=== PATIENT | male | born 1970 | race Two or more races ===

== ENCOUNTER 2020-09-07 07:12 | Observation (INO) | payer OTHER, SELFPAY ==
[2020-09-07] VITALS (14 sets, daily range): BP systolic 119–201; BP diastolic 55–112; PULSE 65–92; RESP 16–22; TEMP 36.9; O2SAT 95–99; BMI 42.9
--- NOTE | 2020-09-07 07:26 | XR_ITS ---
EXAMINATION: XR CHEST CLINICAL INFORMATION: Chest pain COMPARISON: Previous chest x-ray May 2020 TECHNIQUE: Frontal view of the chest was obtained. FINDINGS: The cardiac silhouette does not appear enlarged. The lung volumes are low. There are prominent central bronchovascular markings, question related to low lung volumes. The lungs are otherwise clear. There is no pleural effusion or pneumothorax. There are mild degenerative changes of the spine. XR/XR chest 1V IMPRESSION: Crowded central bronchovascular markings, question related to low lung volumes. Otherwise unremarkable exam.
--- NOTE | 2020-09-07 07:27 | ED_ITS ---
HPI - Chest Pain General Chief Complaint: Chest Pain Stated Complaint: CHEST PAIN Time Seen by Provider: 09/07/20 07:27 Source: patient Mode of arrival: ambulatory Limitations: no limitations History of Present Illness HPI narrative: takes 3 BP medications amlodipine, lisinopril, HTCZ - ran out of amlodipine and HCTZ recently complaint: chest pain Pertinent past history: other (HTN) Onset (ago): hour(s) (4.5 hours ago woke him from sleep at 3am) Timing of current episode: constant Prior episodes: No Onset: during rest Pain location: left chest Pain radiation: left arm and neck Severity: moderate Quality: heaviness Relieving factors: nothing Exacerbating factors: nothing Associated symptoms: nausea, diaphoresis and dyspnea Treatment prior to arrival: aspirin (took 325mg [employer]PER[employer]) Risk Factors Coronary artery disease risk factors: smoking history and hypertension Related Data Home Medications Medication Instructions Recorded Confirmed amlodipine 5 mg PO DAILY 09/07/20 09/07/20 hydrochlorothiazide 25 mg PO DAILY 09/07/20 09/07/20 lisinopril 20 mg PO DAILY 09/07/20 09/07/20 Allergies Allergy/AdvReac Type Severity Reaction Status Date / Time acetaminophen [From TYLENOL] Allergy Unknown AGITATION Verified 09/07/20 07:29 codeine [CODEINE] Allergy Unknown CLAUSTROPHO Verified 09/07/20 07:29 CAMILO Review of Systems Review of Systems: Constitutional : No Weight loss, No Fever, No Chills ENT/Mouth : No sore throat, No Rhinorrhea Eyes: No Eye Pain, No Swelling Cardiovascular : pos Chest Pain, pos SOB, no Dyspnea on Exertion, No Orthopnea, No Edema, No Palpitations Respiratory : No Cough, No Sputum Gastrointestinal : pos Nausea, No Vomiting, No Diarrhea, No abdominal Pain, No Hematochezia, No Melena Genitourinary : No Dysuria, No Urinary Frequency Musculoskeletal : No joint pain, No Myalgias, No Joint Swelling Skin : No Skin Lesions, No rash Neuro : No Weakness, No Numbness, No Dizziness, No Headache Psych : No Anxiety/Panic, No Depression Heme/Lymph: No Bruising, No Lymphadenopathy Endocrine : No Polyuria, No Polydipsia All other systems reviewed and are negative PMFSH Past Medical History Attestation statement: The following information was validated with the patient. Medical History High cholesterol HTN (hypertension) Social History Social History (Updated 09/07/20 @ 07:30 by Yumiko Brown DO) Alcohol intake: current Alcohol intake frequency: a few times a week Alcohol type: beer Smoking Status: Current every day smoker Use of substances other than those prescribed or required for medical reasons: No Advance Directives: No Advance Directives Information Provided: Yes Physical Exam Vital Signs: Vital Signs: Last Vital Signs Temp 98.4 F 09/07/20 07:25 Pulse 65 09/07/20 08:13 Resp 18 09/07/20 08:13 BP 140/88 H 09/07/20 08:13 Pulse Ox 98 09/07/20 08:13 Body Mass Index 42.9 Appearance: Alert. Oriented X3. No acute distress. Eyes: Pupils equal, round and reactive to light. ENT: Pharynx normal. Neck: Normal inspection. Neck supple. CVS: Normal heart rate and rhythm. Pulses normal. Respiratory: No respiratory distress. Breath sounds normal. Abdomen: Soft and non-tender. Skin: Skin warm and sweaty. Normal skin color. Normal skin turgor. Extremities: No lower extremity edema. No calf ttp Neuro: Oriented X 3. No motor deficit. No sensory deficit. Course Course Course Narrative: BP 148/82 patient reports significant improvement after nitro - states he feels better, refusing any further medications for pain at this time MDM - Chest Pain MDM Narrative Medical decision making narrative: 50 yo male with HTN and smoking off of 2 of his BP medications for 1 week here with BP > 200 and chest pain likely HTN urgency with new EKG changes - at this time will need labs, CXR, troponin, nitro paste or IV BP medications if no response as well as repeat EKG, suspect HTN is cause of EKG changes and CP, planned admit Lab Data Result diagrams: 09/07/20 07:42 09/07/20 07:42 Labs: Lab Results 09/07/20 09/07/20 09/07/20 Range/Units 07:42 07:42 07:42 WBC 6.9 (4.8-10.8) X10*3/uL RBC 4.51 L (4.60-5.80) X10*6/uL Hgb 14.5 (14.0-18.0) g/dl Hct 41.0 L (42-52) % MCV 90.9 (80-98) fL MCH 32.2 (27.0-33.0) pg MCHC 35.4 (31.0-36.0) g/dl RDW 12.4 (11.0-16.0) % Plt Count 217 (160-400) X10*3/uL MPV 10.3 (9.4-12.4) fL Immature Gran % (Auto) 0.9 H (0.0-0.4) % Neut % (Auto) 63.7 (45-73) % Lymph % (Auto) 25.5 (20-40) % [place] % (Auto) 7.7 (2-11) % Eos % (Auto) 1.9 (0-4) % Baso % (Auto) 0.3 (0-2) % Lymph # (Auto) 1.8 (1.2-4.9) X10*3/uL [place] # (Auto) 0.5 (0.1-1.2) X10*3/uL Eos # (Auto) 0.1 (0.0-0.4) X10*3/uL Baso # (Auto) 0.0 (0.0-0.2) X10*3/uL Abs Immat Gran (auto) 0.06 H (0.00-0.03) X10*3/uL Absolute Neuts (auto) 4.4 (2.0-8.3) X10*3/uL Absolute Nucleated RBC 0.000 (0.0-0.012) X10*3/uL Nucleated RBC % (auto) 0.0 (0.0-0.2) /100WBC PT 10.8 (10.8-13.0) SEC INR 0.9 (0.9-1.1) APTT 39.8 H (24.1-38.0) SEC Sodium 139 (135-145) mmol/L Potassium 4.2 (3.3-5.1) mmol/l Chloride 105 (96-108) mmol/L Carbon Dioxide 26 (22-29) mmol/L Anion Gap 12 (12-20) BUN 15 (9-16) mg/dL Creatinine 0.82 (0.5-1.4) mg/dL Estim Creat Clear Calc 123.3 Estimated GFR > 60 Random Glucose 103 (60-115) mg/dL Calcium 8.7 (8.4-10.2) mg/dL Magnesium 2.1 (1.6-2.6) mg/dL Total Bilirubin 0.4 (0.0-1.0) mg/dL Direct Bilirubin < 0.2 (0.0-0.5) mg/dL AST 19 (5-37) U/L ALT 31 (0-40) U/L Alkaline Phosphatase 67 (39-117) U/L Troponin I High Sens (<3.5-35.0) ng/L B-Natriuretic Peptide (<100) pg/mL Total Protein 6.7 (6.5-8.0) g/dL Albumin 4.3 (3.5-5.0) g/dL Lipase 18 (8-78) U/L COVID-19 (ELYSE) (Negative) COVID-19 Clin Com 09/07/20 09/07/20 Range/Units 07:42 07:42 WBC (4.8-10.8) X10*3/uL RBC (4.60-5.80) X10*6/uL Hgb (14.0-18.0) g/dl Hct (42-52) % MCV (80-98) fL MCH (27.0-33.0) pg MCHC (31.0-36.0) g/dl RDW (11.0-16.0) % Plt Count (160-400) X10*3/uL MPV (9.4-12.4) fL Immature Gran % (Auto) (0.0-0.4) % Neut % (Auto) (45-73) % Lymph % (Auto) (20-40) % [place] % (Auto) (2-11) % Eos % (Auto) (0-4) % Baso % (Auto) (0-2) % Lymph # (Auto) (1.2-4.9) X10*3/uL [place] # (Auto) (0.1-1.2) X10*3/uL Eos # (Auto) (0.0-0.4) X10*3/uL Baso # (Auto) (0.0-0.2) X10*3/uL Abs Immat Gran (auto) (0.00-0.03) X10*3/uL Absolute Neuts (auto) (2.0-8.3) X10*3/uL Absolute Nucleated RBC (0.0-0.012) X10*3/uL Nucleated RBC % (auto) (0.0-0.2) /100WBC PT (10.8-13.0) SEC INR (0.9-1.1) APTT (24.1-38.0) SEC Sodium (135-145) mmol/L Potassium (3.3-5.1) mmol/l Chloride (96-108) mmol/L Carbon Dioxide (22-29) mmol/L Anion Gap (12-20) BUN (9-16) mg/dL Creatinine (0.5-1.4) mg/dL Estim Creat Clear Calc Estimated GFR Random Glucose (60-115) mg/dL Calcium (8.4-10.2) mg/dL Magnesium (1.6-2.6) mg/dL Total Bilirubin (0.0-1.0) mg/dL Direct Bilirubin (0.0-0.5) mg/dL AST (5-37) U/L ALT (0-40) U/L Alkaline Phosphatase (39-117) U/L Troponin I High Sens 15.2 (<3.5-35.0) ng/L B-Natriuretic Peptide 17 (<100) pg/mL Total Protein (6.5-8.0) g/dL Albumin (3.5-5.0) g/dL Lipase (8-78) U/L COVID-19 (ELYSE) Negative (Negative) COVID-19 Clin Com See Note ECG Data ECG #1: Attestation: I personally reviewed and interpreted this ECG as follows: ECG interpretation date: 09/07/20 ECG interpretation time: 07:32 Interpretation: Rate: 75 Rhythm: NSR Kane: normal Normal P waves. Normal MANPREET. Normal QRS complex. ST T wave : inverted 1 and aVL (old) inverted t waves V4-V6 (new since May 2020) qTC: normal prior studies: changed from prior The study has been interpreted contemporaneously by me. . Rate: 75 Rhythm: NSR Kane: normal Normal P waves. Normal MANPREET. Normal QRS complex. ST T wave : inverted t waves I, aVL, V3-V6 qTC: normal prior studies: changed from old EKG but no new changes post HTN control The study has been interpreted contemporaneously by me. . Discharge Plan Discharge Clinical Impression: Chest pain, Hypertensive urgency, Acute electrocardiogram changes Patient Disposition: Admitted As Inpatient Prescriptions: No Action lisinopril 20 mg tablet 20 mg PO DAILY RF: 0 amlodipine 5 mg tablet 5 mg PO DAILY RF: 0 hydrochlorothiazide 25 mg tablet 25 mg PO DAILY RF: 0
[2020-09-07] MEDS: Nitroglycerin 2 % Oint 1 GM Packet 1 INCH TRANSDERMA (07:44)
[2020-09-07] MEDS: ondansetron HCL 4 MG/2 ML VIAL IVPUSH (07:45)
[2020-09-07 07:54] LABS: MANUAL DIFF FLAG NO
[2020-09-07 08:03] LABS: INTERNATIONAL NORM RATIO 0.9 (0.9-1.1); Prothrombin Time 10.8 SEC (10.8-13.0)
[2020-09-07 08:06] LABS: Basophils Percent Auto 0.3 % (0-2); Eosinophils Absolute Auto 0.1 X10*3/uL (0.0-0.4); Eosinophils Percent Auto 1.9 % (0-4); Hemoglobin 14.5 g/dl (14.0-18.0); Imm Gran Abs Auto 0.06 X10*3/uL (0.00-0.03); Imm Gran Pct Auto 0.9 % (0.0-0.4); Lymphocytes Absolute Auto 1.8 X10*3/uL (1.2-4.9); Lymphocytes Percent Auto 25.5 % (20-40); Mean Corpuscular HGB Conc 35.4 g/dl (31.0-36.0); Mean Corpuscular Hemoglobin 32.2 pg (27.0-33.0); Mean Corpuscular Volume 90.9 fL (80-98); Mean Platelet Volume 10.3 fL (9.4-12.4); Monocytes Absolute Auto 0.5 X10*3/uL (0.1-1.2); Monocytes Percent Auto 7.7 % (2-11); Neutrophils Absolute Auto 4.4 X10*3/uL (2.0-8.3); Neutrophils Percent Auto 63.7 % (45-73); Partial Thromboplastin Time 39.8 SEC (24.1-38.0); Platelet Count 217 X10*3/uL (160-400); Red Blood Count 4.51 X10*6/uL (4.60-5.80); Red Cell Distribution Width 12.4 % (11.0-16.0); White Blood Count 6.9 X10*3/uL (4.8-10.8)
--- NOTE | 2020-09-07 08:06 | ECG_ITS ---
Test Reason : CP Blood Pressure : / mmHG Vent. Rate : 075 BPM Atrial Rate : 075 BPM P-R Int : 158 ms QRS Dur : 106 ms QT Int : 388 ms P-R-T Axes : 054 056 140 degrees QTc Int : 433 ms Normal sinus rhythm ST & T wave abnormality, consider lateral ischemia Abnormal ECG When compared with ECG of 08-MAY-2020 17:58, T wave inversion more evident in Anterolateral leads Referred By: Yumiko Brown Electronically Signed By:DIETER PAZ MD
--- NOTE | 2020-09-07 08:07 | ECG_ITS ---
Test Reason : CP Blood Pressure : / mmHG Vent. Rate : 075 BPM Atrial Rate : 075 BPM P-R Int : 160 ms QRS Dur : 096 ms QT Int : 412 ms P-R-T Axes : 056 065 151 degrees QTc Int : 460 ms Normal sinus rhythm Possible Left atrial enlargement ST & T wave abnormality, consider anterolateral ischemia Prolonged QT Abnormal ECG When compared with ECG of 07-SEP-2020 07:19, No significant change was found Referred By: Yumiko Brown Electronically Signed By:DIETER PAZ MD
[2020-09-07] MEDS: amLODIPine Besylate 10 MG TABLET PO (08:11)
[2020-09-07 08:24] LABS: Alanine Aminotransferase 31 U/L (0-40); Albumin Level 4.3 g/dL (3.5-5.0); Alkaline Phosphatase 67 U/L (39-117); Anion Gap 12 (12-20); Aspartate Amino Transferase 19 U/L (5-37); Bilirubin Direct < 0.2 mg/dL (0.0-0.5); Bilirubin Total 0.4 mg/dL (0.0-1.0); Blood Urea Nitrogen 15 mg/dL (9-16); Calcium 8.7 mg/dL (8.4-10.2); Carbon Dioxide 26 mmol/L (22-29); Chloride 105 mmol/L (96-108); Creatinine Clr Calc Pharmacy 123.3; Estimated Glomerular Filt Rate > 60; Glucose Random 103 mg/dL (60-115); Lipase 18 U/L (8-78); Magnesium 2.1 mg/dL (1.6-2.6); Potassium 4.2 mmol/l (3.3-5.1); Sodium 139 mmol/L (135-145); Total Protein 6.7 g/dL (6.5-8.0)
[2020-09-07 08:27] LABS: B Type Natriuretic Peptide 17 pg/mL (<100); Troponin-I High Sensitivity 15.2 ng/L (<3.5-35.0)
[2020-09-07 08:28] LABS: COVID-19 Test Negative (Negative)
--- NOTE | 2020-09-07 08:29 | PC.NURSE ---
Pt feeling better since arrival but reports b/l hand tightness. Pt falls asleep easily now and appears more comfortable. nsr on monitor. Breathing even/unlabored. BP has trended down as charted. Plan for admission.
--- NOTE | 2020-09-07 10:33 | P.HPHOSP_ITS ---
History of Present Illness Date of Service: 09/07/20 <Deandra Jimenez NP - Last Filed: 09/07/20 10:48> Chief Complaint: Chest pain <Deandra Jimenez NP - Last Filed: 09/07/20 10:48> 50 year old man presenting with chest pain that woke him up from sleep this morning. He reported that he had pressure that started in his left arm radiating to his neck down to the left side of his chest. He also had some as sociated shortness of breath. He took a baby aspirin and his blood pressure medications. He continued to have the discomfort for some time and decided to come to the ED to be evaluated. He was seen at [facility] in February 2020 for the same symptoms. He was referred for outpatient stress test. Today, his EKG did show some changes including new inversions to lateral leads. Troponin was in normal range and his pain improved upon arrival to the ED. All his other labs were within acceptable limits. vital signs stable. He was given nitroglycerin and a dose of amlodipine. He will be placed on observation for further management of chest pain with EKG changes. <Deandra Jimenez NP - Last Filed: 09/07/20 10:48> Review of Systems Review of Systems: Denies any recent fever chills or decrease in appetite respiratory See HPI cardiovascular See HPI gastrointestinal denies any dysphagia abdominal pain nausea vomiting or diarrhea genitourinary denies any dysuria frequency or hematuria musculoskeletal denies any joint pain or swelling neuropsych denies any weakness or seizures all other systems reviewed are negative <Deandra Jimenez NP - Last Filed: 09/07/20 10:48> [facility] Medical History: Medical History High cholesterol HTN (hypertension) <BENNETT Holbrook Last Filed: 09/07/20 10:48> Functional capacity: independent ambulation <Deandra Jimenez NP - Last Filed: 09/07/20 10:48> Family History: Family History Mother Heart valve disease Cancer Brother Diabetes mellitus <BENNETT Holbrook Last Filed: 09/07/20 10:48> Social History: Social History Household Members: Spouse Housing: Other Alcohol intake: current Alcohol intake frequency: a few times a week Alcohol type: beer Smoking Status: Current every day smoker Tobacco Type: Cigarette Packs Per Day: 1.5 Cigarettes Per Day: 30.0 Years Smoked: 30 Second Hand Smoke Exposure: No service: No Current occupational status: employed <Deandra Jimenez NP - Last Filed: 09/07/20 10:48> Meds Allergies/Adverse reactions: Allergies Allergy/AdvReac Type Severity Reaction Status Date / Time acetaminophen [From TYLENOL] Allergy Unknown AGITATION Verified 09/07/20 07:29 codeine [CODEINE] Allergy Unknown CLAUSTROPHO Verified 09/07/20 07:29 CAMILO <Deandra Jimenez NP - Last Filed: 09/07/20 10:48> Physical Exam Vital Signs and Narrative: Vital Signs: Last Vital Signs Temp 98.4 F 09/07/20 07:25 Pulse 92 09/07/20 09:19 Resp 16 09/07/20 09:19 BP 120/70 09/07/20 09:19 Pulse Ox 98 09/07/20 09:19 Body Mass Index 42.9 <Deandra Jimenez NP - Last Filed: 09/07/20 10:48> Appearing in no acute distress head is normocephalic atraumatic eyes pupils are PERRLA sclera is anicteric mouth throat mucous membranes are intact and moist neck is supple no lymphadenopathy, no JVD noted lung sounds are clear to auscultation heart regular rate rhythm, clear S1, S2 positive bowel sounds, abdomen is soft, nontender neuro patient is alert x3, no focal deficits <Deandra Jimenez NP - Last Filed: 09/07/20 10:48> Results Labs CBC and Chem 7: : 09/09/20 05:50 09/09/20 05:50 <Deandra Jimenez NP - Last Filed: 09/07/20 10:48> Labs: Laboratory Results - last 24 hr 09/07/20 09/07/20 09/07/20 07:42 07:42 07:42 MCV 90.9 MCH 32.2 MCHC 35.4 RDW 12.4 Plt Count 217 MPV 10.3 Immature Gran % (Auto) 0.9 H Neut % (Auto) 63.7 Lymph % (Auto) 25.5 [place] % (Auto) 7.7 Eos % (Auto) 1.9 Baso % (Auto) 0.3 Lymph # (Auto) 1.8 [place] # (Auto) 0.5 Eos # (Auto) 0.1 Baso # (Auto) 0.0 Abs Immat Gran (auto) 0.06 H Absolute Neuts (auto) 4.4 Absolute Nucleated RBC 0.000 Nucleated RBC % (auto) 0.0 PT 10.8 INR 0.9 APTT 39.8 H Anion Gap 12 Estim Creat Clear Calc 123.3 Estimated GFR > 60 Random Glucose 103 Calcium 8.7 Magnesium 2.1 Total Bilirubin 0.4 Direct Bilirubin < 0.2 AST 19 ALT 31 Alkaline Phosphatase 67 Troponin I High Sens B-Natriuretic Peptide Total Protein 6.7 Albumin 4.3 Lipase 18 COVID-19 (ELYSE) COVID-19 Clin Com 09/07/20 09/07/20 07:42 07:42 MCV MCH MCHC RDW Plt Count MPV Immature Gran % (Auto) Neut % (Auto) Lymph % (Auto) [place] % (Auto) Eos % (Auto) Baso % (Auto) Lymph # (Auto) [place] # (Auto) Eos # (Auto) Baso # (Auto) Abs Immat Gran (auto) Absolute Neuts (auto) Absolute Nucleated RBC Nucleated RBC % (auto) PT INR APTT Anion Gap Estim Creat Clear Calc Estimated GFR Random Glucose Calcium Magnesium Total Bilirubin Direct Bilirubin AST ALT Alkaline Phosphatase Troponin I High Sens 15.2 B-Natriuretic Peptide 17 Total Protein Albumin Lipase COVID-19 (ELYSE) Negative COVID-19 Clin Com See Note <Deandra Jimenez NP - Last Filed: 09/07/20 10:48> Imaging Radiologist's Impressions: Impressions Chest X-Ray 09/07/20 07:26 IMPRESSION: Crowded central bronchovascular markings, question related to low lung volumes. Otherwise unremarkable exam. <Deandra Jimenez NP - Last Filed: 09/07/20 10:48> Assessment and Plan (1) Chest pain: Qualifiers: Chest pain type: unspecified Qualified Code(s): R07.9 - Chest pain, unspecified <Deandra Jimenez NP - Last Filed: 09/07/20 10:48> Status: Resolved <Deandra Jimenez NP - Last Filed: 09/07/20 10:48> (2) Hypertensive urgency: Status: Resolved <Deandra Jimenez NP - Last Filed: 09/07/20 10:48> 50 yea alexy man placed on observation for chest pain Chest pain. Resolved. New EKG changes with inversions to leads I, AVL, V5, V6. Place on telemetry, cardio to follow. Hypertensive urgency. Resolved in the ED. Continue home medications. Smoker. Discussed smoking cessation, NRT. Obesity. BMI 43, likely contributing to worsening of other comorbidities. DVT prophylaxis with Lovenox. Discussed with Dr. Yancey. Full code. <Deandra Jimenez NP - Last Filed: 09/07/20 10:48>
--- NOTE | 2020-09-07 11:30 | PC.NURSE ---
introduced self to pt. denies any pain or discomfort, VS wnl. aware of plan for observation.
--- NOTE | 2020-09-07 13:35 | PC.NURSE ---
pt eating lunch, no issues
--- NOTE | 2020-09-07 16:11 | P.EN_ITS ---
Event Note Date of Service: 09/07/20 Event Note: I saw and examined the patient and participated in the nielsen portion of the E/M service. I agree with the history and exam as documented by RADAR SCIENTIST. Patient likely has atypical chest pain. Will admit for monitoring and work up. Otherwise, I agree with assessment and plan as outlined in the H and P.
[2020-09-07] MEDS: Aspirin 81 MG TAB.CHEW 324 MG PO (18:42)
--- NOTE | 2020-09-07 19:43 | PC.NURSE ---
PT RESTING IN STRETCHER REQUESTING FOOD AND COFFEE. PT EATING AND DRINKING AT THIS TIME. PT DENIES ANY CP OR DISCOMFORT AT THIS TIME. PT RESTING IN STRETCHER WATCHING TV ON PHONE. PT ALERT, AND IN NAD, RESP EASY, N/L. SKIN W/D. AWAITING BED ASSIGNMENT FOR ADMISSION.
[2020-09-07] MEDS: Enoxaparin Sodium 40 MG/0.4 ML SYRINGE SUBCUT (20:15)
--- NOTE | 2020-09-07 22:45 | PC.NURSE ---
PT REQUESTING COVID RESULTS AND REQUESTING RESULTS FOR BOSS UPON DISCHARGE. PT REMAINS ALERT AND CHEST PAIN FREE. WILL CONTINUE TO MONITOR PT.
[2020-09-08] VITALS (8 sets, daily range): BP systolic 142–174; BP diastolic 78–109; PULSE 18–92; RESP 18–20; TEMP 36.2–36.6; O2SAT 96–98; BMI 42.9
--- NOTE | 2020-09-08 03:17 | PC.NURSE ---
PT RESTING IN STRETCHER. PT MEDICATED PER EMAR. WILL CONTINUE TO MONITOR PT. AWAITING ROOM ASSIGNMENT.
--- NOTE | 2020-09-08 03:19 | PC.NURSE ---
PT UP TO RESTROOM AMBULATORY IN NAD. PT DENIES ANY COMPLAINTS AT THIS TIME. VS OBTAINED. PT REQUESTING COFFEE. PT REMAINS ALERT, RESPIRATIONS EASY, N/L. SKIN W/D. PT AWAITING ROOM ASSIGNMENT.
[2020-09-08] MEDS: Metoprolol Tartrate 5 MG/5 ML VIAL IVPUSH (04:15)
--- NOTE | 2020-09-08 07:15 | PC.NURSE ---
report given to ZE Roy
--- NOTE | 2020-09-08 07:53 | PC.NURSE ---
REPORT FROM YONY KUNZ. PT BEING ADMITTED WITH RESOLVED CP. NO PAIN AT SHIFT CHANGE. VITALS UPDATED. ATE BREAKFAST. AWAITING BED ASSIGNMENT
--- NOTE | 2020-09-08 09:52 | MHC.CM.PN ---
pt lives c his and kids in an apt. 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 he has a license but it has so it is not valid. he reports that he is independent in his care. he walked to the hospital last night. he said he [place] planning [place] as he lives close [place]. i did offer to help pt with a ride if he would accept. pt denies the need for vna. pt's family can help him c any needs he may have at dc. dc plan is home no svcs. cm to cont. to follow.
[2020-09-08] MEDS: amLODIPine Besylate 5 MG TABLET PO (10:00)
[2020-09-08] MEDS: hydroCHLOROthiazide 25 MG TABLET PO (10:00)
[2020-09-08] MEDS: lisinopriL 20 MG TABLET PO (10:00)
[2020-09-08] MEDS: 0.9 % Sodium Chloride Flush 3 ML SYRINGE IVFLUSH ×3 (10:02→20:56)
--- NOTE | 2020-09-08 10:21 | CA_ITS ---
Transthoracic Echocardiogram Patient (Last, First, Middle): River Snow, Gender: Male Date of : 1970 Age: 50 Procedure Date: 09/08/2020 Procedure Type: Transthoracic Echocardiogram Location: [facility] [place] Height: 162.56 cm Weight: 113.4 kg BSA: 2.15 m2 Heart Rate: bpm BP: 145 / 101 mmHg Airport Planner: SHE Referring MD: Randall Buck MD Cork Tipper: Randall Buck MD Symptoms: ACS, CP, HTN Study Quality: Good ECG Rhythm: Sinus Conclusions: - 1. Normal LV systolic function with severe left ventricular hypertrophy with impaired relaxation filling pattern 2. Mildly dilated left atrium 3. Normal cardiac valvular Doppler 4. Normal RV systolic pressure 5. No pericardial effusion Findings Left Ventricle Normal left ventricular size and systolic function. There is severely increased left ventricular wall thickness. The visually estimated ejection fraction is between 60-65%. Spectral Doppler is indicative of an impaired relaxation filling pattern. E/E prime ratio is between 8 and 15 consistent with indeterminate filling pressures. Right Ventricle Normal right ventricular cavity size and systolic function. Atria The left atrium is mildly dilated. There is no evidence of interatrial shunt. The right atrium is normal in size. Aortic Valve Normal aortic valve structure and function. There is no aortic valve stenosis. There is no aortic valve regurgitation. Mitral Valve Normal mitral valve structure and function. There is trace mitral valve regurgitation. There is no mitral valve stenosis. Pulmonic Valve The pulmonic valve was not well visualized. Tricuspid Valve Normal tricuspid valve structure. There is trace tricuspid valve regurgitation. The right ventricular systolic pressure is normal. The right ventricular systolic pressure is 15 mmHg. Normal right atrial pressure. There is no evidence of pulmonary hypertension. Great Vessels All visible segments of the aorta are normal in size. The pulmonary artery was not well visualized. Venous The inferior vena cava is normal in size and collapses greater than 50% with inspiration. Pericardium/Pleural There is no evidence of pericardial effusion. Prior Study Comparison No prior study available for comparison. Measurements 2D Linear Measurements IVSd: 1.70 0.6-0.9/0.6-1.0 cm LVIDd: 4.83 3.9-5.3/4.2-5.9 cm LVIDd Index: 2.25 2.4-3.2/2.2-3.1 cm/m2 LVIDs: 2.81 2.0-3.6 cm LVPWd: 1.65 0.7-1.1 cm Ao Root: 3.20 2.1-3.5 cm LA Diam: 4.10 2.7-3.8/3.0-4.0 cm LAIDs Index: 1.91 1.5-2.3 cm/m2 LV Mass: 452.05 67-162/88-224 g LV Mass Index: 210.26 43-95/49-115 g/m2 LVOT Diam: 2.40 3.0+(-)1.3 cm Mitral Valve MV Pk E: 0.56 MV PK A: 0.80 MV Decel Time: 204.00 E/A: 0.70 E'Lateral: 6.67 E'Medial: 6.77 E/E' Med: 8.20 E/E' Lat: 8.40 PHT: 60.00 MVA PHT: 3.67 Decel Dickinson: 2.73 Aortic Valve AoV Pk Ryan: 1.58 AoV Mn Ryan: 1.01 AoV VTI: 0.32 AoV Pk Grad: 10.00 Aov Mn Grad: 5.00 SHIRIN Cont.VTI: 3.47 LVOT LVOT Pk Ryan: 1.13 LVOT Mn Ryan: 0.76 LVOT VTI: 0.25 LVOT Pk Grad: 5.00 LVOT Mn Grad: 3.00 LVOT Diam: 2.40 LVOT Area: 4.52 Diastolic Function MV Pk E: 0.56 MV Pk A: 0.80 E/A: 0.70 E'Medial: 6.77 E/E' Med: 8.20 E' Laterial: 6.67 E/E' Lat: 8.40 Tricuspid Valve TR Pk Ryan: 1.76 TR Pk Grad: 12.00 RA Press: 3.00 RVSP: 15.00 Great Vessels Aorta Ao Root-2D: 3.20 2.0-3.7 cm Ao Asc: 3.10 2.1-3.4 cm Pulmonary Valve PV Pk Ryan: 1.13 Peak PV Grad: 5.00 Updated in Other Vendor System with Status of Final Randall Buck MD electronically signed on 09/08/2020 5:27:10 PM with status of Final
--- NOTE | 2020-09-08 10:22 | CA_ITS ---
Acquisition Time: 2020-09-09 10:33:56 Total Exercise Time: 00:09:04 Test Indications: CP Medications: SEE CHART Protocol: KLAUDIA Max HR: 137 BPM 80% of Pred: 170 BPM Max BP: 200/086 mmHG Max Work Load: 10.1 METS Nuclear stress test using Klaudia protocol. exercise on the treadmill for 9 min 4 sec, METS 10.10, however MHR up to 80 % and pt stopped because he had severe cramps in his L leg. Test switched to Lexiscan, he tolerated well, denies any anginal sx. EKG with no arrhythmias, non diagnostic for ischemia. Nuclear images to follow. Hypertensive response to exercise. Normotensive response to Lexiscan. Test reviewed with Dr. Buck. Referred By: Randall Buck Overread By: Keysha Bhatt
--- NOTE | 2020-09-08 11:01 | PM.CNCAR ---
History of Present Illness History of Present Illness Date of Service: 09/08/20 Requesting physician: [facility] Consult reason: chest pain Chief complaint: CHEST PAIN,ekg changes Narrative: Thank you for inviting us on consult are off self for symptoms of chest discomfort. He is a 50-year-old man with longstanding hypertension for about 3 years, appears to be uncontrolled, has run out of his medications for couple of weeks. He came to the hospital said yesterday morning around 03:00 started having retrosternal chest pressure. Initially the discomfort started as neck discomfort radiating into the arm and then into the chest. This felt like pressure in his chest. He also then took a shower and thought the symptoms would subside but did not subside he started to get dizzy and therefore decided to come to the emergency room. When he came to the emergency room. In the ER he received aspirin nitro paste. Subsequently he said his pressure in the chest started getting resolved. His initial EKG shows anterolateral T-wave inversions which are quite different than his EKG 3 months ago. He said he was here 3 months ago and then he was discharged home at that time. His troponin done yesterday morning was 15.2, elevated compared to 3 months ago which was in the 5 range at that time. He is currently chest pain free. He was admitted because he continues to have uncontrolled blood pressure. His EKG shows persistent significant T-wave inversions in the anterolateral leads and the high lateral leads which has suggestive ischemia. He has not had any recent exertional chest discomfort. However says he gets these kind of symptoms every 3-4 months. He has had prior stress test, none in the system which she said have been within normal limits. Never had cardiac catheterization. He denies any systemic symptoms of cough, fever, chills. No palpitations, lightheadedness, syncope currently. Review of Systems Constitutional: Constitutional: Denies anorexia, Denies body ache(s), Denies chills, Reports excessive sweating, Denies fever(s), Denies lethargy, Reports snoring and Reports stops breathing during sleep Eyes: Eyes: Reports no additional eye complaints ENT: Reports system reviewed and no additional complaints, except as documented Cardiovascular: Cardiovascular: Reports chest pain at rest, Reports lightheadedness, Denies Loss of Consciousness, Denies palpitations, Denies dyspnea on exertion, Denies orthopnea and Denies paroxysmal nocturnal dyspnea Respiratory: Respiratory: Denies cough, Denies excessive phlegm production, Denies dyspnea on exertion and Reports snoring Gastrointestinal: Gastrointestinal: Reports no additional gastrointestinal complaints Musculoskeletal: Musculoskeletal: Reports no additional musculoskeletal complaints Neurologic: Reports system reviewed and no additional complaints, except as documented Psychiatric: Psychiatric: Reports no additional psychiatric complaints Endocrine: Endocrine: Reports no additional endocrine complaints, Reports excessive sweating and Denies palpitations Hematologic/Lymphatic: Hematologic/Lymphatic: Reports no additional hematologic/lymphatic complaints Allergic/Immunologic: Allergic/Immunologic: Reports no additional allergic/immunologic complaints [facility] Past Medical History Medical History High cholesterol HTN (hypertension) Functional capacity: independent ambulation Family History Family History Mother Heart valve disease Cancer Brother Diabetes mellitus Social History Social History Household Members: Spouse Household Members Other:: fiance and kids Housing: Other Housing Other:: snf/apt Do you presently have visiting nurse or other home services: No Alcohol intake: current Alcohol intake frequency: a few times a week Alcohol type: beer Smoking Status: Current every day smoker Tobacco Type: Cigarette Packs Per Day: 1.5 Cigarettes Per Day: 30.0 Years Smoked: 30 Smoked in Last 30 Days: Yes Patient Interested in Nicotine Replacement: No Patient Given Instructions on How to Stop Smoking: Yes Date Education Initiated: 09/08/20 Second Hand Smoke Exposure: No Use of substances other than those prescribed or required for medical reasons: No Have you been hit, kicked, punched, or otherwise hurt by someone within the past year? If so, by whom?: No Do you feel safe in your current relationship?: Yes Is there a partner from a previous relationship who is making you feel unsafe now?: No Are you made to feel afraid or neglected: No Advance Directives: No Advance Directives Information Provided: Yes Do you have thoughts of harming others: None Do you have a plan to hurt others: No Plan Recently lost weight without trying: No service: No Current occupational status: employed Meds Allergies Allergy/AdvReac Type Severity Reaction Status Date / Time acetaminophen [From TYLENOL] Allergy Unknown AGITATION Verified 09/07/20 07:29 codeine [CODEINE] Allergy Unknown CLAUSTROPHO Verified 09/07/20 07:29 CAMILO Home Medications Medication Instructions Recorded Confirmed Type amlodipine 5 mg PO DAILY 09/07/20 09/07/20 History hydrochlorothiazide 25 mg PO DAILY 09/07/20 09/07/20 History lisinopril 20 mg PO DAILY 09/07/20 09/07/20 History Physical Exam Vital Signs: Vital Signs: Last Vital Signs Temp 97.9 F 09/08/20 08:00 Pulse 92 09/08/20 08:00 Resp 18 09/08/20 08:00 BP 154/93 H 09/08/20 08:00 Pulse Ox 98 09/08/20 08:00 Body Mass Index 42.9 Const: General: cooperative, no acute distress, alert and awake Nutritional Appearance: obese Orientation/consciousness: patient oriented x3 Limitations: no limitations HENMT: Head: Yes normal to inspection, Yes normocephalic and Yes atraumatic Eyes: General: appearance normal, both eyes and all related structures Neck: Neck: Yes trachea midline, Yes supple and Yes no JVD Chest: Chest palpation & inspection: normal inspection of the chest Resp: Effort & Inspection: normal respiratory effort Auscultation: clear to auscultation bilaterally Cardio: Jugular venous distension: no JVD Palpation: normal PMI Rate: regular rate Rhythm: regular rhythm Heart sounds: S1 normal heart sound present, S2 normal heart sound present and Other heart sounds present (S4) GI: Inspection: Yes obesity Auscultation: normal bowel sounds Skin: General skin exam: no rashes or lesions noted Neuro: General: patient oriented x3 and no focal motor deficits Extrem: General: Yes no clubbing, cyanosis or edema Psych: Appearance: grossly normal Affect: Anxious affect present Results Labs and Meds Result diagrams: 09/07/20 07:42 09/07/20 07:42 EKG Interpretation EKG Comments: EKG shows normal sinus rhythm with diffuse anterolateral T-wave inversions suggestive of ischemia Assessment and Plan (1) ACS (acute coronary syndrome): Status: Acute Patient's presentation is concerning for acute coronary syndrome. His 1st high sensitive troponin yesterday was within normal limits. No repeat have been performed. Advised to repeat another high sensitive troponin at this time. His EKG changes are significant compared to his last electrocardiogram 3 months ago. Likely that this could be secondary to hypertensive urgency but myocardial ischemia cannot be ruled out entirely. Obtain an echocardiogram, if this shows significant wall motion abnormalities will require cardiac catheterization. If this is negative will require inpatient myocardial perfusion imaging with resting perfusion study performed today and stress perfusion study tomorrow. Further treatment based on the finding of stress test. Meanwhile continue low-dose aspirin therapy. Start statin therapy. Continue amlodipine, lisinopril hydrochlorothiazide. Add labetalol 100 mg b.i.d. to his regimen as well for better control of his blood pressure. (2) Hypertensive urgency: Status: Acute As above. Importance of compliance with treatment for blood pressure was discussed. He also has untreated sleep apnea which needs to be addressed as outpatient. Advised to seek follow-up with primary care physician's after discharge. Continue amlodipine, lisinopril hydrochlorothiazide and added labetalol to his regimen. Thank you for allowing us to partake in his care. Will continue to follow with the patient
--- NOTE | 2020-09-08 13:00 | NM_ITS ---
Myocardial perfusion study Indication: Chest pain with hypertensive urgency with EKG changes to evaluate for myocardial ischemia Technique: The patient was brought in for a Lexiscan perfusion study on 09/09/2020. Patient performed low-level exercise and was injected 0.4 mg of Lexiscan intravenously. Within a minute of injection, 30 mCi of sestamibi was given intravenously. Images were obtained using the SPECT gamma camera interlaced with the gating device. Images were obtained in supine position. Resting perfusion study was performed on 09/08/2020. Patient was administered 30 mCi of sestamibi intravenously at rest. Images were then obtained in supine position. Images obtained with and without CT attenuation. Total DLP 102 mGy-cm. Images were processed with the software and compared side to side in short axis, horizontal long axis and vertical long axis views. Findings: The stress perfusion study showed non attenuated images show mildly reduced uptake in the basal inferior wall of the LV myocardium. Remainder of the LV myocardium is normally perfused. Attenuation corrected images show normal uptake of radiotracer in all segments of LV is suggestion of left ventricle hypertrophy. The gated study shows normal LV systolic function with visually estimated LVEF of greater than 55%. LV cavity is normal in size. The gated study shows normal systolic wall thickening and contraction of segments. Resting study shows no change in perfusion pattern compared to stress perfusion study. Gating at rest reveals normal systolic wall motion with visually estimated ejection fraction at greater than 55%. The findings are consistent with normal myocardial perfusion. NM/NM terrell perf SPECT rest & str Impression: 1. Myocardial perfusion imaging study shows normal myocardial perfusion 2. Gated LVEF is greater than 55% 3. Transient ischemic dilatation not present EKG is nondiagnostic for ischemia
--- NOTE | 2020-09-08 13:16 | HO.PM.IMPN ---
Subjective Subjective Date of Service: 09/08/20 Interval History: seen in follow-up for chest pain, unstable angina. Presently denies any chest pain or shortness of b reath Gen: no fever Resp: no sob, no cough CV: no chest, no SAGE, no leg edema GI: No n/v, no abd pain Neuro: No confusion Physical Exam Vital Signs: Vital Signs: Last Vital Signs Temp 97.2 F 09/08/20 12:00 Pulse 92 09/08/20 12:00 Resp 18 09/08/20 12:00 BP 154/96 H 09/08/20 12:00 Pulse Ox 98 09/08/20 12:00 Body Mass Index 42.9 General: AO X 3, no acute distress Resp: CTA bilateral CVS: S1,S2,RRR GI: +BS, NT, no distention Skin: No rash Neuro: motor grossly intact Psych: appropriate affect Objective Data Current Medications Generic Name Dose Route Start Last Admin Trade Name Freq PRN Reason Stop Dose Admin Acetaminophen 650 mg 09/07/20 18:33 Acetaminophen 325 Mg Tablet PO Q6H PRN Pain, Mild (Pain Scale 1-3) Amlodipine Besylate 5 mg 09/08/20 09:00 09/08/20 10:00 Amlodipine Besylate 5 Mg Tablet PO 5 mg DAILY MARCO Administration Protocol Enoxaparin Sodium 40 mg 09/07/20 18:33 09/07/20 20:15 Enoxaparin Sodium 40 Mg/0.4 Ml Syringe SUBCUT 40 mg Q24H MARCO Administration Hydrochlorothiazide 25 mg 09/08/20 09:00 09/08/20 10:00 Hydrochlorothiazide 25 Mg Tablet PO 25 mg DAILY MARCO Administration Protocol Lisinopril 20 mg 09/08/20 09:00 09/08/20 10:00 Lisinopril 20 Mg Tablet PO 20 mg DAILY MARCO Administration Protocol Ondansetron HCl 4 mg 09/07/20 18:33 Ondansetron Hcl 4 Mg/2 Ml Vial IVPUSH Q8H PRN Nausea and Vomiting Pharmacy Consult 1 each 09/07/20 07:26 Consult Rx Perform Med Rec MISCELLANE ONCE PRN Consult order Sodium Chloride 3 ml 09/08/20 05:32 09/08/20 10:02 0.9 % Sodium Chloride Flush 3 Ml Syringe IVFLUSH 3 ml QSHIFT MARCO Administration Labs CBC & Chem 7: 09/07/20 07:42 09/07/20 07:42 Assessment and Plan (1) ACS (acute coronary syndrome): Status: Acute (2) Chest pain: Status: Acute (3) Hypertensive urgency: Status: Acute (4) Acute electrocardiogram changes: Status: Acute Assessment and Plan: 50/m with HTN who presented with HTN urgency and Unstable Angina with marked ischemic changes on ECG ACS/UA probably precipitateb by UA--BP control, ASA, BP, Statin. Echo and Stres Hypertensive urgency. BP is better yet not optimal., add labetalol, can also increase Norvasc Smoker. Discussed smoking cessation, NRT. Obesity. BMI 43, likely contributing to worsening of other comorbidities. DVT prophylaxis with Lovenox.
[2020-09-08] MEDS: Labetalol HCL 100 MG TABLET PO ×2 (13:54→20:51)
[2020-09-08] MEDS: Enoxaparin Sodium 40 MG/0.4 ML SYRINGE SUBCUT (17:45)
[2020-09-09] VITALS: BP 148/64; PULSE 85; RESP 18; TEMP 36.4; O2SAT 99
[2020-09-09 04:00] VITALS: BP 142/94; PULSE 73; RESP 18; TEMP 36.9; O2SAT 98
[2020-09-09 06:23] LABS: MANUAL DIFF FLAG NO
[2020-09-09 06:29] LABS: Basophils Percent Auto 0.4 % (0-2); Eosinophils Absolute Auto 0.1 X10*3/uL (0.0-0.4); Eosinophils Percent Auto 1.6 % (0-4); Hematocrit 45.4 % (42-52); Hemoglobin 15.9 g/dl (14.0-18.0); Imm Gran Abs Auto 0.07 X10*3/uL (0.00-0.03); Imm Gran Pct Auto 0.9 % (0.0-0.4); Lymphocytes Absolute Auto 1.9 X10*3/uL (1.2-4.9); Lymphocytes Percent Auto 24.4 % (20-40); Mean Corpuscular Hemoglobin 31.4 pg (27.0-33.0); Mean Corpuscular Volume 89.7 fL (80-98); Mean Platelet Volume 10.6 fL (9.4-12.4); Monocytes Absolute Auto 0.5 X10*3/uL (0.1-1.2); Monocytes Percent Auto 6.2 % (2-11); Neutrophils Percent Auto 66.5 % (45-73); Platelet Count 251 X10*3/uL (160-400); Red Blood Count 5.06 X10*6/uL (4.60-5.80); Red Cell Distribution Width 12.1 % (11.0-16.0); White Blood Count 7.6 X10*3/uL (4.8-10.8)
[2020-09-09 07:12] LABS: Anion Gap 13 (12-20); Blood Urea Nitrogen 18 mg/dL (9-16); Calcium 9.4 mg/dL (8.4-10.2); Carbon Dioxide 29 mmol/L (22-29); Chloride 100 mmol/L (96-108); Creatinine Clr Calc Pharmacy 90.3; Estimated Glomerular Filt Rate > 60; Glucose Random 107 mg/dL (60-115); Potassium 4.2 mmol/l (3.3-5.1); Sodium 138 mmol/L (135-145)
[2020-09-09 08:00] VITALS: BP 158/85; PULSE 70; RESP 20; TEMP 36.6; O2SAT 97
[2020-09-09] MEDS: Labetalol HCL 100 MG TABLET PO (08:57)
[2020-09-09] MEDS: amLODIPine Besylate 5 MG TABLET PO (08:57)
[2020-09-09] MEDS: hydroCHLOROthiazide 25 MG TABLET PO (08:57)
[2020-09-09] MEDS: lisinopriL 20 MG TABLET PO (08:58)
[2020-09-09] MEDS: 0.9 % Sodium Chloride Flush 3 ML SYRINGE IVFLUSH (08:58)
--- NOTE | 2020-09-09 09:30 | MHC.CM.PN ---
Per RN CM, Patient has changed status from OBSERVATION to INPATIENT.
[2020-09-09 12:00] VITALS: BP 137/80; PULSE 83; RESP 20; TEMP 36.6; O2SAT 99
--- NOTE | 2020-09-09 13:12 | P.PNCA_ITS ---
Subjective Subjective Date of Service: 09/09/20 Principal diagnosis: hypertensive urgency, chest discomfort, abnormal EKG Interval history: patient has no significant chest discomfort. Myocardial perfusion imaging within normal limits. Echocardiogram shows normal LV systolic function with severe left ventricular hypertrophy consistent with hypertensive heart disease. Review of Systems Constitutional: Reports no additional constitutional complaints Cardiovascular: Reports no additional cardiovascular complaints Respiratory: Reports no additional respiratory complaints Gastrointestinal: Reports no additional gastrointestinal complaints Reports system reviewed and no additional complaints, except as documented Hematologic/Lymphatic: Reports no additional hematologic/lymphatic complaints Allergic/Immunologic: Reports no additional allergic/immunologic complaints Physical Exam Vital Signs: Last Vital Signs Temp 97.9 F 09/09/20 08:00 Pulse 70 09/09/20 08:00 Resp 20 09/09/20 08:00 BP 158/85 H 09/09/20 08:00 Pulse Ox 97 09/09/20 08:00 Body Mass Index 42.9 Const General: cooperative, alert and awake Orientation/consciousness: patient oriented x3 Limitations: no limitations HENMT Head: Yes normocephalic and Yes atraumatic Eyes General: appearance normal, both eyes and all related structures Neck Neck: Yes trachea midline, Yes supple and Yes no JVD Chest Chest palpation & inspection: normal inspection of the chest Resp Effort & Inspection: normal respiratory effort Auscultation: clear to auscultation bilaterally Cardio Palpation: normal PMI Rate: regular rate Rhythm: regular rhythm Heart sounds: S1 normal heart sound present, S2 normal heart sound present and Other heart sounds present ( S4 present) Skin General skin exam: no rashes or lesions noted Neuro General: patient oriented x3 and no focal motor deficits Extrem General: Yes no clubbing, cyanosis or edema Results Labs and Meds Result diagrams: 09/09/20 05:50 09/09/20 05:50 Lab results: Laboratory Results - last 24 hr 09/09/20 09/09/20 05:50 05:50 WBC 7.6 RBC 5.06 Hgb 15.9 Hct 45.4 MCV 89.7 MCH 31.4 MCHC 35.0 RDW 12.1 Plt Count 251 MPV 10.6 Immature Gran % (Auto) 0.9 H Neut % (Auto) 66.5 Lymph % (Auto) 24.4 [place] % (Auto) 6.2 Eos % (Auto) 1.6 Baso % (Auto) 0.4 Lymph # (Auto) 1.9 [place] # (Auto) 0.5 Eos # (Auto) 0.1 Baso # (Auto) 0.0 Abs Immat Gran (auto) 0.07 H Absolute Neuts (auto) 5.0 Absolute Nucleated RBC 0.000 Nucleated RBC % (auto) 0.0 Sodium 138 Potassium 4.2 Chloride 100 Carbon Dioxide 29 Anion Gap 13 BUN 18 H Creatinine 1.12 Estim Creat Clear Calc 90.3 Estimated GFR > 60 Random Glucose 107 Calcium 9.4 D Progress Note: A&P Assessment and plan (1) Chest pain: Status: Acute Assessment and Plan: chest pain in setting of hypertensive urgency in patient who presented with el evated blood pressure and ran out of his medications. Abnormal EKG was concerning for acute coronary syndrome. However myocardial perfusion imaging is normal and reassuring. He does have significant hypertensive heart disease which his most likely the cause of his EKG changes. No other workup is indicated at this time. (2) Hypertensive urgency: Status: Acute Assessment and Plan: Hypertensive urgency, blood pressure remains elevated. Further increase Norvasc to 10 mg daily. Continue other therapy. Will need outpatient workup and follow-up as well. He needs his CPAP therapy reinstated. Discussed with him importance of compliance with medications. Patient can be discharged from cardiac perspective. Will follow up in as outpatient. Thank you for allowing us to partake in his care (3) Acute electrocardiogram changes: Status: Acute Fall Risk Details Current Medications: Current Medications Generic Name Dose Route Start Last Admin Trade Name Freq PRN Reason Stop Dose Admin Acetaminophen 650 mg 09/07/20 18:33 Acetaminophen 325 Mg Tablet PO Q6H PRN Pain, Mild (Pain Scale 1-3) Amlodipine Besylate 5 mg 09/08/20 09:00 09/09/20 08:57 Amlodipine Besylate 5 Mg Tablet PO 5 mg DAILY MARCO Administration Protocol Enoxaparin Sodium 40 mg 09/07/20 18:33 09/08/20 17:45 Enoxaparin Sodium 40 Mg/0.4 Ml Syringe SUBCUT 40 mg Q24H MARCO Administration Hydrochlorothiazide 25 mg 09/08/20 09:00 09/09/20 08:57 Hydrochlorothiazide 25 Mg Tablet PO 25 mg DAILY MARCO Administration Protocol Labetalol HCl 100 mg 09/08/20 13:25 09/09/20 08:57 Labetalol Hcl 100 Mg Tablet PO 100 mg BID MARCO Administration Protocol Lisinopril 20 mg 09/08/20 09:00 09/09/20 08:58 Lisinopril 20 Mg Tablet PO 20 mg DAILY MARCO Administration Protocol Ondansetron HCl 4 mg 09/07/20 18:33 Ondansetron Hcl 4 Mg/2 Ml Vial IVPUSH Q8H PRN Nausea and Vomiting Pharmacy Consult 1 each 09/07/20 07:26 Consult Rx Perform Med Rec MISCELLANE ONCE PRN Consult order Sodium Chloride 3 ml 09/08/20 05:32 09/09/20 08:58 0.9 % Sodium Chloride Flush 3 Ml Syringe IVFLUSH 3 ml QSHIFT MARCO Administration Time Spent With Patient Time: Total time spent is greater than 50% in coordination of care (as documented) at patient's floor/unit and/or counseling patient: Time with patient: 15 - 24 minutes
--- NOTE | 2020-09-09 14:49 | P.DS_ITS ---
DS: Providers Provider Date of admission: 09/07/20 10:32 Primary care physician: None Physician Consults: 09/08/20 05:32 Consult to Cardiology Routine Consulting Provider: Randall Buck Reason for consultation: chest pain, ekg changes Has provider been notified: No DS: Diagnosis Discharge Diagnosis (1) Chest pain: Status: Resolved (2) Hypertensive urgency: Status: Resolved (3) Acute electrocardiogram changes: Status: Resolved DS: Medications Discharge Medications Home Medications: Previous Rx's Medication Instructions Recorded amlodipine 10 mg PO DAILY #60 tab 09/09/20 hydrochlorothiazide 25 mg PO DAILY #30 tab 09/09/20 lisinopril 20 mg PO DAILY #30 tab 09/09/20 DS: Summary Hospital Course Hospital Course: This patient who has HTN presented to hospital chest pain and ECG showed acute anterolateral TWI, negative troponin. His blood pressure has been very high as he had run out of meds. He underwent exercise stress test with Lexican and was normal. Pain resolved. BP meds (Lisniopril, HCTZ and Norvasc) are been renewed. Norvasc is being increased from 5 to 10. Blood pressure is 137/80, it was 201/112. Status at Discharge Functional status at discharge: independent ambulation Overall status at discharge: patient is back to baseline Time Spent with Patient Time attestation: Total time spent providing and/or coordinating discharge services: Discharge coordination time: Greater than 30 minutes Physical Exam Vital Signs: Vital Signs: Last Vital Signs Temp 97.9 F 09/09/20 12:00 Pulse 83 09/09/20 12:00 Resp 20 09/09/20 12:00 BP 137/80 09/09/20 12:00 Pulse Ox 99 09/09/20 12:00 Body Mass Index 42.9 DS: Data Data Completed and Pending Labs on day of discharge: 09/07/20 07:26 XR chest 1V Stat Nitroglycerin 2 % Oint [Nitro-Bid] 1 inch TRANSDERMA ONCE ONE ondansetron HCL [Zofran] 4 mg IVPUSH ONCE ONE 09/07/20 07:34 Morphine Sulfate 4 mg IVPUSH ONCE ONE 09/07/20 07:42 B Type Natriuretic Peptide Stat Basic Metabolic Panel Stat COVID-19 ID NOW (Mata) Stat Complete Blood Count Auto Diff Stat Lipase Stat Liver Panel Stat Magnesium Stat Partial Thromboplastin Time Stat Prothrombin Time INR Stat Troponin-I High Sensitivity Stat 09/07/20 08:06 ECG 12 lead EKG Stat amLODIPine Besylate [Norvasc] 10 mg PO ONCE ONE Laboratory Last Values WBC 7.6 X10*3/uL (4.8-10.8) 09/09/20 05:50 RBC 5.06 X10*6/uL (4.60-5.80) 09/09/20 05:50 Hgb 15.9 g/dl (14.0-18.0) 09/09/20 05:50 Hct 45.4 % (42-52) 09/09/20 05:50 MCV 89.7 fL (80-98) 09/09/20 05:50 MCH 31.4 pg (27.0-33.0) 09/09/20 05:50 MCHC 35.0 g/dl (31.0-36.0) 09/09/20 05:50 RDW 12.1 % (11.0-16.0) 09/09/20 05:50 Plt Count 251 X10*3/uL (160-400) 09/09/20 05:50 MPV 10.6 fL (9.4-12.4) 09/09/20 05:50 Immature Gran % (Auto) 0.9 % (0.0-0.4) H 09/09/20 05:50 Neut % (Auto) 66.5 % (45-73) 09/09/20 05:50 Lymph % (Auto) 24.4 % (20-40) 09/09/20 05:50 [place] % (Auto) 6.2 % (2-11) 09/09/20 05:50 Eos % (Auto) 1.6 % (0-4) 09/09/20 05:50 Baso % (Auto) 0.4 % (0-2) 09/09/20 05:50 Lymph # (Auto) 1.9 X10*3/uL (1.2-4.9) 09/09/20 05:50 [place] # (Auto) 0.5 X10*3/uL (0.1-1.2) 09/09/20 05:50 Eos # (Auto) 0.1 X10*3/uL (0.0-0.4) 09/09/20 05:50 Baso # (Auto) 0.0 X10*3/uL (0.0-0.2) 09/09/20 05:50 Abs Immat Gran (auto) 0.07 X10*3/uL (0.00-0.03) H 09/09/20 05:50 Absolute Neuts (auto) 5.0 X10*3/uL (2.0-8.3) 09/09/20 05:50 Absolute Nucleated RBC 0.000 X10*3/uL (0.0-0.012) 09/09/20 05:50 Nucleated RBC % (auto) 0.0 /100WBC (0.0-0.2) 09/09/20 05:50 PT 10.8 SEC (10.8-13.0) 09/07/20 07:42 INR 0.9 (0.9-1.1) 09/07/20 07:42 APTT 39.8 SEC (24.1-38.0) H 09/07/20 07:42 Sodium 138 mmol/L (135-145) 09/09/20 05:50 Potassium 4.2 mmol/l (3.3-5.1) 09/09/20 05:50 Chloride 100 mmol/L (96-108) 09/09/20 05:50 Carbon Dioxide 29 mmol/L (22-29) 09/09/20 05:50 Anion Gap 13 (12-20) 09/09/20 05:50 BUN 18 mg/dL (9-16) H 09/09/20 05:50 Creatinine 1.12 mg/dL (0.5-1.4) 09/09/20 05:50 Estim Creat Clear Calc 90.3 09/09/20 05:50 Estimated GFR > 60 09/09/20 05:50 Random Glucose 107 mg/dL (60-115) 09/09/20 05:50 Calcium 9.4 mg/dL (8.4-10.2) D 09/09/20 05:50 Magnesium 2.1 mg/dL (1.6-2.6) 09/07/20 07:42 Total Bilirubin 0.4 mg/dL (0.0-1.0) 09/07/20 07:42 Direct Bilirubin < 0.2 mg/dL (0.0-0.5) 09/07/20 07:42 AST 19 U/L (5-37) 09/07/20 07:42 ALT 31 U/L (0-40) 09/07/20 07:42 Alkaline Phosphatase 67 U/L (39-117) 09/07/20 07:42 Troponin I High Sens 15.2 ng/L (<3.5-35.0) 09/07/20 07:42 B-Natriuretic Peptide 17 pg/mL (<100) 09/07/20 07:42 Total Protein 6.7 g/dL (6.5-8.0) 09/07/20 07:42 Albumin 4.3 g/dL (3.5-5.0) 09/07/20 07:42 Lipase 18 U/L (8-78) 09/07/20 07:42 COVID-19 (ELYSE) Negative (Negative) 09/07/20 07:42 COVID-19 Clin Com See Note 09/07/20 07:42 Discharge Plan Discharge Anticipated Discharge Date/Time: 09/09/20 14:34 Patient Disposition: Home, Self-Care Referrals: Physician,None [Primary Care Provider] - Discharge Medications: Continued lisinopril 20 mg tablet 20 mg PO DAILY Qty: 30 RF: 0 hydrochlorothiazide 25 mg tablet 25 mg PO DAILY Qty: 30 RF: 0 Changed amlodipine 5 mg tablet 10 mg PO DAILY Qty: 60 RF: 0 Discharge Orders: Discharge Order (Routine); Ordered 09/09/20 Ordered By: Eliot Yancey Diet: advance to usual diet Activity on Discharge: As tolerated Discharge Date/Time: 09/09/20 15:16 Visit Report Forms: Patient Portal Discharge page Care Plan Goals: Prevent rehospitalization and a spike in your blood pressue Health Concerns: Elevated blood presssure Plan of Treatment: Take your medications as recommended and follow up with your Doctor in a week for blood pressure recheck
--- NOTE | 2020-09-09 14:52 | MHC.CM.PN ---
Patient has been medically cleared for dc to home today, no services.Patient is aware of and in agreement with the dc plan.
== END 2020-09-09 15:16 | disposition home or self-care (01) ==
LOC: HO.ED 08:36 → HO.IMC 09-08 08:24
PROVIDERS: Nurse Practitioner Acute Care; Admitting Provider Internal Medicine; Emergency Provider Emergency Medicine; Visit Provider Internal Medicine
DX: I16.0 Hypertensive urgency (principal); R07.89 Other chest pain; R94.31 Abnormal electrocardiogram [ECG] [EKG]; I24.9 Acute ischemic heart disease, unspecified; R61 Generalized hyperhidrosis; R06.83 Snoring; E78.00 Pure hypercholesterolemia, unspecified; I10 Essential (primary) hypertension; E66.9 Obesity, unspecified; G47.33 Obstructive sleep apnea (adult) (pediatric); F17.210 Nicotine dependence, cigarettes, uncomplicated; Z68.41 Body mass index [BMI] 40.0-44.9, adult; Z20.828 Contact with and (suspected) exposure to other viral communicable diseases; Z88.5 Allergy status to narcotic agent; Z79.899 Other long term (current) drug therapy
CPT/HCPCS: 36415; 71045; 78452; 80048; 80076; 83690; 83735; 83880; 84484; 85025; 85610; 85730; 87635; 93005; 93017; 93306; 96374; 96375; 99219; 99285; A9500; J1650; J2405; J2785

== ENCOUNTER → 2020-10-11 09:14 | Outpatient (BNVA) | payer OTHER, SELFPAY | PROVIDERS: Visit Provider Physician Assistant | DX: K62.5 Hemorrhage of anus and rectum (principal); R10.9 Unspecified abdominal pain | CPT/HCPCS: 99202 ==

== ENCOUNTER 2020-10-14 15:57 | Outpatient (REF) | payer OTHER, SELFPAY | END 2020-10-14 15:58 | disposition home or self-care (01) | LOC: HO.LAB 15:57 | PROVIDERS: Visit Provider Internal Medicine | DX: Z20.828 Contact with and (suspected) exposure to other viral communicable diseases (principal) | CPT/HCPCS: 36415; C9803; U0003 ==

== ENCOUNTER 2020-10-18 13:59 | Outpatient (REF) | payer OTHER, SELFPAY ==
[2020-10-18 15:17] LABS: Alanine Aminotransferase 44 U/L (0-40); Albumin Level 4.9 g/dL (3.5-5.0); Alkaline Phosphatase 62 U/L (39-117); Anion Gap 13 (12-20); Aspartate Amino Transferase 23 U/L (5-37); Bilirubin Total 0.4 mg/dL (0.0-1.0); Blood Urea Nitrogen 14 mg/dL (9-16); Calcium 9.8 mg/dL (8.4-10.2); Carbon Dioxide 28 mmol/L (22-29); Chloride 101 mmol/L (96-108); Estimated Glomerular Filt Rate > 60; Glucose Random 107 mg/dL (60-115); Potassium 3.9 mmol/l (3.3-5.1); Sodium 138 mmol/L (135-145); Total Protein 7.8 g/dL (6.5-8.0)
== END 2020-10-18 14:00 | disposition home or self-care (01) ==
LOC: HO.LAB 13:59
PROVIDERS: Visit Provider Physician Assistant
DX: R10.11 Right upper quadrant pain (principal)
CPT/HCPCS: 36415; 80053

== ENCOUNTER 2020-10-20 07:49 | Outpatient (REF) | payer OTHER, SELFPAY ==
--- NOTE | 2020-10-20 09:53 | CT_ITS ---
EXAMINATION: CT ABDOMEN AND PELVIS WITH CONTRAST CLINICAL INFORMATION: Abdominal pain COMPARISON: None TECHNIQUE: Multidetector volumetric images were obtained from the superior aspect of the liver through the pubic symphysis following administration 85 mL of Omnipaque 350 intravenous contrast. Sagittal and coronal reformatted images were obtained on the technologist's workstation. Oral contrast: No This CT examination was performed using dose optimization techniques as appropriate, variously including the following: *Automated exposure control *Adjustment of mA and/or kV according to patient size (this includes techniques or standardized protocols for targeted exams where dose is matched to indication/reason for exam; i.e. extremities or head) *Use of iterative reconstruction technique DLP: 715 mGy-cm FINDINGS: LUNG BASES: There is plate-like atelectasis in both lung bases. The heart size is normal. LIVER, GALLBLADDER, AND BILIARY TREE: The liver is normal in size, shape, and attenuation. No focal hepatic lesion or biliary ductal dilatation is present. The gallbladder is unremarkable with no evidence of radiopaque gallstones, gallbladder wall thickening, or obvious pericholecystic inflammatory changes. PANCREAS: Unremarkable. SPLEEN: Unremarkable. ADRENAL GLANDS: There are 2 lesions in the left adrenal gland. A 1.2 x 1.4 cm from the lateral limb and a 1.6 x 1.5 cm from the medial limb. Both lesions have high attenuation value. The right adrenal gland is unremarkable. KIDNEYS AND URETERS: The kidneys are normal in size, shape, and attenuation. No hydronephrosis, hydroureter, or calculi seen. No perinephric stranding. There are punctate hypodensities in the right hepatic lobe likely a tiny cortical cyst. BLADDER: Unremarkable. GASTROINTESTINAL TRACT: There is scattered stool and gas seen throughout the colon without significant distention. The appendix is normal. Opacified small bowel loops are normal caliber. ABDOMINAL WALL: There is small umbilical hernia containing fat. There are bilateral small inguinal hernias containing fat. LYMPH NODES: Normal. VASCULAR: Unremarkable. PELVIC VISCERA: Unremarkable. OSSEOUS STRUCTURES: Unremarkable. CT/CT abdomen pelvis w con IMPRESSION: 1. No acute intra-abdominal process seen. 2. Two high attenuation left adrenal lesions. If clinically indicated a CT adrenal protocol can be performed.
[2020-10-20] MEDS: iohexoL 350 MG/ML 100 ML INFUS..BTL IV (10:59)
== END 2020-10-20 07:50 | disposition home or self-care (01) ==
LOC: HO.CT 07:49
PROVIDERS: Visit Provider Physician Assistant
DX: R10.9 Unspecified abdominal pain (principal)
CPT/HCPCS: 74177; Q9967

== ENCOUNTER → 2020-12-14 09:28 | Outpatient (BNVA) | payer OTHER, SELFPAY | PROVIDERS: Visit Provider Physician Assistant ==

== ENCOUNTER 2021-01-02 12:01 | Emergency (ER) | payer OTHER, SELFPAY ==
--- NOTE | ~2021-01-02 | XR_ITS ---
EXAMINATION: XR CHEST CLINICAL INFORMATION: Chest pain COMPARISON: 09.07.2020 TECHNIQUE: Frontal view of the chest was obtained. FINDINGS: Normal symmetric lung volumes. No parenchymal consolidation. No pleural effusion. No pneumothorax. Cardiomediastinal silhouette and pulmonary vascularity are within normal limits. No acute osseous abnormalities. XR/XR chest 1V IMPRESSION: Unremarkable examination.
--- NOTE | ~2021-01-02 | CT_ITS ---
EXAMINATION: CT BRAIN WITHOUT CONTRAST CT SOFT TISSUE NECK CLINICAL INFORMATION: Headache and hypertension. Concern for dental abscess. COMPARISON: None. TECHNIQUE: 5 mm thin axial and reformatted 2 mm thin sagittal and coronal images of brain were obtained. DLP: 1 807 mGy-cm. Subsequently axial 2 mm thin and reformatted 3 mm thin sagittal and coronal images of neck were obtained following IV 60 mL Omnipaque 350. DLP: 1037 mGy-cm. FINDINGS: BRAIN: There is no acute intra-axial, extra-axial bleed, masses or midline shift. There is no acute infarction evolution. [place] to white matter differentiation is maintained. The lateral ventricles are symmetrical in size and configuration without enlargement. Bone windows reveal no calvarial abnormality. Bilateral paranasal sinuses and mastoid air cells are well-aerated. There is no scalp soft tissue abnormality. SOFT TISSUES NECK: There is normal symmetry without enhancement of bilateral, parotid, submandibular and thyroid lobes without enhancing lesion or enlargement. No abnormal size mediastinal or hilar lymph nodes seen. The nasal cavity, nasopharyngeal and oropharyngeal airway appears widely patent. There are small bilateral neck lymph nodes at level 2, 3, 4 and level 1B. The largest left intraparotid lymph node measures 1.5 x 0.8 cm and right parotid lymph node measures 1.4 x 0.6 cm. There is mild deviation nasal septum to the left. The turbinates are symmetrical. There is minimal mucoperiosteal thickening right maxillary sinus infundibulum. Bone windows reveal no bony erosive changes involving the mandible or the maxilla. No dental abscess visualized. There is a right periapical cyst right upper first molar. Bilateral TM joints are intact. There are degenerative disc changes at C4-C5, C5-C6, C6-C7 and C7-T1 disc levels. The mastoid sinuses are clear. The lung apices are clear except for small right apical cyst. CT/CT soft tissue neck w con IMPRESSION: No acute intracranial process seen. There is no acute mass, dental abscess or bony abnormalities. There are bilateral reactive neck lymph nodes. Minimal mucoperiosteal thickening right maxillary sinus infundibulum.
[2021-01-02 12:04] VITALS: BP 219/103; PULSE 99; RESP 20; TEMP 37.6; O2SAT 97; BMI 34.3
[2021-01-02 13:31] VITALS: BP 221/126; PULSE 81
--- NOTE | 2021-01-02 13:43 | ECG_ITS ---
Test Reason : HYPERTENSION Blood Pressure : / mmHG Vent. Rate : 079 BPM Atrial Rate : 079 BPM P-R Int : 162 ms QRS Dur : 104 ms QT Int : 376 ms P-R-T Axes : 058 065 128 degrees QTc Int : 431 ms Normal sinus rhythm T wave abnormality, consider lateral ischemia Abnormal ECG When compared with ECG of 07-SEP-2020 08:10, No significant change was found Referred By: Reanna Harmon Electronically Signed By:MITUL JACKSON
[2021-01-02 14:11] LABS: MANUAL DIFF FLAG NO
[2021-01-02 14:15] LABS: Basophils Percent Auto 0.3 % (0-2); Eosinophils Absolute Auto 0.1 X10*3/uL (0.0-0.4); Eosinophils Percent Auto 0.7 % (0-4); Hematocrit 45.5 % (42-52); Hemoglobin 16.1 g/dl (14.0-18.0); Imm Gran Abs Auto 0.06 X10*3/uL (0.00-0.03); Imm Gran Pct Auto 0.5 % (0.0-0.4); Lymphocytes Absolute Auto 1.8 X10*3/uL (1.2-4.9); Lymphocytes Percent Auto 16.1 % (20-40); Mean Corpuscular HGB Conc 35.4 g/dl (31.0-36.0); Mean Corpuscular Hemoglobin 32.1 pg (27.0-33.0); Mean Corpuscular Volume 90.6 fL (80-98); Mean Platelet Volume 9.3 fL (9.4-12.4); Monocytes Absolute Auto 0.8 X10*3/uL (0.1-1.2); Neutrophils Absolute Auto 8.4 X10*3/uL (2.0-8.3); Neutrophils Percent Auto 75.4 % (45-73); Platelet Count 254 X10*3/uL (160-400); Red Blood Count 5.02 X10*6/uL (4.60-5.80); Red Cell Distribution Width 12.6 % (11.0-16.0); White Blood Count 11.1 X10*3/uL (4.8-10.8)
[2021-01-02] MEDS: 0.9 % Sodium Chloride 1,000 ML 999 ML IVCONT (14:17)
[2021-01-02 14:18] VITALS: BP 223/129; PULSE 81; RESP 20
[2021-01-02 14:28] LABS: Lactic Acid 0.8 mmol/L (0.5-2.0)
--- NOTE | 2021-01-02 14:28 | PC.NURSE ---
pt alert and oriented, skin appropriate for ethnicity, respirations even and unlabored. pt reports having high bp since yesterday despises him taking his medications, lisinopril, hydrochlorothiazide and amlodipine and having a headache since yesterday also reports having a abscess in his mouth. ns on the monitor.
[2021-01-02 14:33] LABS: Alanine Aminotransferase 37 U/L (0-40); Albumin Level 4.7 g/dL (3.5-5.0); Alkaline Phosphatase 77 U/L (39-117); Anion Gap 16 (12-20); Aspartate Amino Transferase 22 U/L (5-37); Bilirubin Direct 0.2 mg/dL (0.0-0.5); Bilirubin Total 0.8 mg/dL (0.0-1.0); Blood Urea Nitrogen 13 mg/dL (9-16); Carbon Dioxide 26 mmol/L (22-29); Chloride 101 mmol/L (96-108); Creatinine Clr Calc Pharmacy 92.5; Estimated Glomerular Filt Rate > 60; Glucose Random 93 mg/dL (60-115); Sodium 139 mmol/L (135-145); Total Protein 7.6 g/dL (6.5-8.0)
[2021-01-02 14:38] LABS: Troponin-I High Sensitivity 18.5 ng/L (<3.5-35.0)
[2021-01-02] MEDS: Morphine Sulfate 2 MG/ML CARTRIDGE IVPUSH ×2 (14:57→17:08)
[2021-01-02 15:00] VITALS: BP 196/95; PULSE 84
--- NOTE | 2021-01-02 15:42 | ED.GENADULT ---
HPI - General Adult General Chief complaint: General Medical Stated complaint: HBP Time Seen by Provider: 01/02/21 12:53 Source: patient Mode of arrival: ambulatory History of Present Illness HPI narrative: 50-year-old male with a past medical history of hyperlipidemia, hypertension, sleep apnea, rectal bleeding presenting to the ED complaining elevated blood pressure and dental pain/infection since yesterday with notable right sided face swelling x today. Reports compliance with BP meds. Admits to mild left-sided chest discomfort and headache. Denies intraoral drainage, fever, chills, difficulty swallowing/handling secretions, SOB, lightheadedness/dizziness, numbness/tingling, weakness. Does not take anticoagulation Related Data Previous Rx's Medication Instructions Recorded amlodipine 10 mg PO DAILY #60 tab 09/09/20 hydrochlorothiazide 25 mg PO DAILY #30 tab 09/09/20 lisinopril 20 mg PO DAILY #30 tab 09/09/20 barium sulfate 2 % (w/v) oral 450 ml PO DIRECTED 1 Days #900 10/11/20 suspension ml methylcellulose (laxative) 500 mg 500 mg PO BID #60 tab 10/11/20 tablet clindamycin HCl 450 mg PO Q8H 7 Days #32 cap 01/02/21 hydrocodone-acetaminophen 1 tab PO Q8H PRN 3 Days #9 tab 01/02/21 ibuprofen 800 mg PO Q6-8H PRN #20 tab 01/02/21 Allergies Allergy/AdvReac Type Severity Reaction Status Date / Time acetaminophen [From TYLENOL] Allergy Unknown AGITATION Verified 12/14/20 09:28 codeine [CODEINE] Allergy Unknown CLAUSTROPHO Verified 12/14/20 09:28 CAMILO Review of Systems Review of Systems: Constitutional: No Fever, No Chills ENT/Mouth: No Ear Pain, No Nasal Congestion, No Sinus Pain, No Hoarseness, No sore throat, No Rhinorrhea, No Swallowing Difficulty, +dental pain Eyes: No Eye Pain, No Swelling, No Redness, No Foreign Body, No Discharge, No Vision Changes Cardiovascular: + Chest Pain, No SOB Respiratory: No Cough, No Dyspnea Gastrointestinal: No Nausea, No Vomiting, No Abdominal pain Musculoskeletal: No joint pain, No Myalgias, No Joint Swelling Skin: No Skin Lesions, No rash Neuro: No Weakness, No Numbness, No Paresthesias, No Loss of Consciousness, No Dizziness, + Headache Yes all other systems are reviewed and are negative [facility] Past Medical History Attestation statement: The following information was validated with the patient. Medical History (Updated 01/02/21 @ 17:20 by WINIFRED Stacy) Abdominal pain Diaphoresis High cholesterol HTN (hypertension) Rectal bleeding Sleep apnea Surgical History No significant past surgical history Family History Family History Mother Heart valve disease Cancer Brother Diabetes mellitus Social History Social History (Updated 12/14/20 @ 09:31 by Cecelia Rae CMA) Household Members: Spouse Housing: Other Alcohol intake: current Alcohol intake frequency: holidays/special occasions only Alcohol type: beer Smoking Status: Current every day smoker Tobacco Type: Cigarette Packs Per Day: 0.5 Cigarettes Per Day: 10 Years Smoked: 30 Second Hand Smoke Exposure: No Use of substances other than those prescribed or required for medical reasons: No Advance Directives: No Advance Directives Information Provided: Yes service: No Current occupational status: unemployed Physical Exam Vital Signs: Vital Signs: Last Vital Signs Temp 98.1 F 01/02/21 17:17 Pulse 92 01/02/21 17:17 Resp 15 01/02/21 17:17 BP 210/119 H 01/02/21 17:17 Pulse Ox 97 01/02/21 12:04 Body Mass Index 34.3 Const: Other: In pain General: cooperative and healthy appearing Orientation/consciousness: patient oriented x3 Limitations: no limitations HENMT: Other: Notable right-sided facial/submandibular swelling and tenderness. No right to with notable gum swelling and +ttp, no appreciable intraoral fluctuance/induration Head: Yes normal to inspection Ears: hearing grossly normal bilaterally General nose exam: Normal external nose present Mouth: Normal oral and palatal mucosa present Teeth and gingiva: caries and poor dentition Throat: Yes uvula midline, Yes abnormal tonsil and No peritonsillar mass Eyes: General: appearance normal, both eyes and all related structures EOM: EOMs intact bilaterally Neck: Neck: Yes normal visual inspection and Yes lymphadenopathy Resp: Effort & Inspection: normal respiratory effort Auscultation: clear to auscultation bilaterally, no rhonchi and no wheezes Cardio: Rate: regular rate Heart sounds: S1 normal heart sound present and S2 normal heart sound present GI: Inspection: Yes normal to inspection Palpation (GI): Soft to palpation and nontender Skin: Rashes: no rashes Wounds: no wounds Neuro: General: patient oriented x3, gait normal, tone normal, moves all extremities, no focal motor deficits and CN's II-XI intact bilaterally Gait exam (Neuro): Normal gait present Motor exam (neuro): 5/5 motor strength present throughout Extrem: General: Yes normal to inspection Course Course Course Narrative: -mild leukocytosis of 11.1, labs otherwise unremarkable including lactic acid -XR chest 1V IMPRESSION: Unremarkable examination -CT head/brain wo con IMPRESSION: No acute intracranial process seen. There is no acute mass, dental abscess or bony abnormalities. There are bilateral reactive neck lymph nodes. Minimal mucoperiosteal thickening right maxillary sinus infundibulum >> Will give a dose of IV Clindamycin in the ED -Patient with initial drop in blood pressure after 1st dose of pain medication, however blood pressure elevated now with pain or returning, additional pain medications ordered. Repeat blood pressure after effective pain control 175/84 Medical Decision Making [facility] Narrative Medical decision making narrative: 50-year-old male with a past medical history of hyperlipidemia, hypertension, sleep apnea, rectal bleeding presenting to the ED complaining elevated blood pressure and dental pain/infection since yesterday with notable right sided face swelling x today. On exam hypertensive, NAD/nontoxic, physical exam as above. Concern for dental abscess vs cellulitis. Likely pain causing hypertension rather than hypertensive urgency/emergency although patient is symptomatic. Rule ICH/ACS Low concern for severe sepsis Plan: EKG, labs, imaging, pain management, reassess Lab Data Result diagrams: 01/02/21 14:06 01/02/21 14:06 Labs: Lab Results 01/02/21 01/02/21 01/02/21 Range/Units 14:06 14:06 14:06 WBC 11.1 H (4.8-10.8) X10*3/uL RBC 5.02 (4.60-5.80) X10*6/uL Hgb 16.1 (14.0-18.0) g/dl Hct 45.5 (42-52) % MCV 90.6 (80-98) fL MCH 32.1 (27.0-33.0) pg MCHC 35.4 (31.0-36.0) g/dl RDW 12.6 (11.0-16.0) % Plt Count 254 (160-400) X10*3/uL MPV 9.3 L (9.4-12.4) fL Immature Gran % (Auto) 0.5 H (0.0-0.4) % Neut % (Auto) 75.4 H (45-73) % Lymph % (Auto) 16.1 L (20-40) % Wallace % (Auto) 7.0 (2-11) % Eos % (Auto) 0.7 (0-4) % Baso % (Auto) 0.3 (0-2) % Lymph # (Auto) 1.8 (1.2-4.9) X10*3/uL Wallace # (Auto) 0.8 (0.1-1.2) X10*3/uL Eos # (Auto) 0.1 (0.0-0.4) X10*3/uL Baso # (Auto) 0.0 (0.0-0.2) X10*3/uL Abs Immat Gran (auto) 0.06 H (0.00-0.03) X10*3/uL Absolute Neuts (auto) 8.4 H (2.0-8.3) X10*3/uL Absolute Nucleated RBC 0.000 (0.0-0.012) X10*3/uL Nucleated RBC % (auto) 0.0 (0.0-0.2) /100WBC Hold Blue Top Sodium 139 (135-145) mmol/L Potassium 4.0 (3.3-5.1) mmol/L Chloride 101 (96-108) mmol/L Carbon Dioxide 26 (22-29) mmol/L Anion Gap 16 (12-20) BUN 13 (9-16) mg/dL Creatinine 0.97 (0.5-1.4) mg/dL Estim Creat Clear Calc 92.5 Estimated GFR > 60 Random Glucose 93 (60-115) mg/dL Lactic Acid 0.8 (0.5-2.0) mmol/L Calcium 9.0 D (8.4-10.2) mg/dL Total Bilirubin 0.8 (0.0-1.0) mg/dL Direct Bilirubin 0.2 (0.0-0.5) mg/dL AST 22 (5-37) U/L ALT 37 (0-40) U/L Alkaline Phosphatase 77 D (39-117) U/L Troponin I High Sens (<3.5-35.0) ng/L Total Protein 7.6 (6.5-8.0) g/dL Albumin 4.7 (3.5-5.0) g/dL 01/02/21 01/02/21 Range/Units 14:06 14:06 WBC (4.8-10.8) X10*3/uL RBC (4.60-5.80) X10*6/uL Hgb (14.0-18.0) g/dl Hct (42-52) % MCV (80-98) fL MCH (27.0-33.0) pg MCHC (31.0-36.0) g/dl RDW (11.0-16.0) % Plt Count (160-400) X10*3/uL MPV (9.4-12.4) fL Immature Gran % (Auto) (0.0-0.4) % Neut % (Auto) (45-73) % Lymph % (Auto) (20-40) % Wallace % (Auto) (2-11) % Eos % (Auto) (0-4) % Baso % (Auto) (0-2) % Lymph # (Auto) (1.2-4.9) X10*3/uL Wallace # (Auto) (0.1-1.2) X10*3/uL Eos # (Auto) (0.0-0.4) X10*3/uL Baso # (Auto) (0.0-0.2) X10*3/uL Abs Immat Gran (auto) (0.00-0.03) X10*3/uL Absolute Neuts (auto) (2.0-8.3) X10*3/uL Absolute Nucleated RBC (0.0-0.012) X10*3/uL Nucleated RBC % (auto) (0.0-0.2) /100WBC Hold Blue Top SEE NOTE Sodium (135-145) mmol/L Potassium (3.3-5.1) mmol/L Chloride (96-108) mmol/L Carbon Dioxide (22-29) mmol/L Anion Gap (12-20) BUN (9-16) mg/dL Creatinine (0.5-1.4) mg/dL Estim Creat Clear Calc Estimated GFR Random Glucose (60-115) mg/dL Lactic Acid (0.5-2.0) mmol/L Calcium (8.4-10.2) mg/dL Total Bilirubin (0.0-1.0) mg/dL Direct Bilirubin (0.0-0.5) mg/dL AST (5-37) U/L ALT (0-40) U/L Alkaline Phosphatase (39-117) U/L Troponin I High Sens 18.5 (<3.5-35.0) ng/L Total Protein (6.5-8.0) g/dL Albumin (3.5-5.0) g/dL Discharge Plan Discharge Clinical Impression: Cellulitis of intraoral region Instructions: Cellulitis (ED) Additional Instructions: Your blood work was reassuring today in the ED Your CT scan did not show any drainable abscess/collection, does show evidence of infection/cellulitis around your right sinus It is likely you have cellulitis surrounding her right to that is extending into her face causing your severe pain, your given a dose of IV antibiotics in the emergency department Clindamycin is an antibiotic, continue to take as prescribed, you need to follow-up with a dentist as soon as possible Take Motrin at home for pain/fever and inflammation In addition [facility] has an opiate pain medication, take only when pain is severe for the next 3 days Prescriptions: New clindamycin HCl 300 mg capsule 450 mg PO Q8H 7 Days Qty: 32 RF: 0 ibuprofen 800 mg tablet 800 mg PO Q6-8H PRN (Reason: pain) Qty: 20 RF: 0 hydrocodone-acetaminophen 5-325 mg tablet 1 tab PO Q8H PRN (Reason: pain, severe) 3 Days Qty: 9 RF: 0 No Action amlodipine 5 mg tablet 10 mg PO DAILY Qty: 60 RF: 0 lisinopril 20 mg tablet 20 mg PO DAILY Qty: 30 RF: 0 hydrochlorothiazide 25 mg tablet 25 mg PO DAILY Qty: 30 RF: 0 Citrucel 500 mg tablet 500 mg PO BID Qty: 60 RF: 5 Readi-Cat 2 2 % (w/v) suspension 450 ml PO DIRECTED 1 Days Qty: 900 RF: 0 Referrals: Kye Adams DMD [Dentist] - 2 days Vivienne Rausch DMD [Dentist] - 2 days Adin Gomez DDS [Physician] - 2 days
[2021-01-02] MEDS: iohexoL 350 MG/ML 75 ML INFUS..BTL IV (15:43)
[2021-01-02 17:08] VITALS: RESP 20
[2021-01-02] MEDS: Ketorolac Tromethamine 15 MG/ML VIAL IVPUSH (17:15)
[2021-01-02 17:17] VITALS: BP 210/119; PULSE 92; RESP 15; TEMP 36.7
[2021-01-02] MEDS: Clindamycin Phosphate/D5W 600 MG/50 ML PIGGYBACK 100 MG IV (17:44)
== END 2021-01-02 19:00 | disposition home or self-care (01) ==
PROVIDERS: Physician Assistant; Emergency Provider Emergency Medicine Emergency Medical Services; PCP Pediatrics
DX: K12.2 Cellulitis and abscess of mouth (principal); M54.2 Cervicalgia; R07.9 Chest pain, unspecified; R51.9 Headache, unspecified; I10 Essential (primary) hypertension; F17.210 Nicotine dependence, cigarettes, uncomplicated; Z71.6 Tobacco abuse counseling; Z79.899 Other long term (current) drug therapy
CPT/HCPCS: 36415; 70450; 70491; 71045; 80048; 80076; 83605; 84484; 85025; 87040; 93005; 96361; 96365; 96375; 99284; J1885; J2270; Q9967

== ENCOUNTER 2021-01-26 05:27 | Emergency (ER) | payer OTHER, SELFPAY ==
[2021-01-26] VITALS (9 sets, daily range): BP systolic 160–215; BP diastolic 83–126; PULSE 61–83; RESP 13–22; TEMP 36.7; O2SAT 95–98; BMI 42.8
--- NOTE | ~2021-01-26 | XR_ITS ---
EXAMINATION: XR CHEST CLINICAL INFORMATION: Chest pain COMPARISON: 01/02/2021 TECHNIQUE: Frontal view of the chest was obtained. FINDINGS: Cardiac leads overlie the chest. The lungs are well expanded. Bronchial wall thickening noted. There is no focal consolidation, edema, or effusion. No pneumothorax. The cardiomediastinal silhouette is within normal limits. No acute osseous abnormality. XR/XR chest 1V IMPRESSION: No dense consolidation. Bronchial wall thickening can be seen with a small airways process such as asthma or atypical/viral infection.
--- NOTE | 2021-01-26 06:12 | ED_ITS ---
HPI - Chest Pain General Chief Complaint: Chest Pain Stated Complaint: SOB/ANXIETY Time Seen by Provider: 01/26/21 05:56 Source: patient Mode of arrival: ambulatory Limitations: no limitations History of Present Illness HPI narrative: 50-year-old male who presents emergency department chest pain and shortness of breath . The patient states that he was sleeping when he woke up at 3:00 a.m. secondary to shortness of breath, anxiety and chest pain. He states that he was having difficulty catching his breath, he also had left-sided chest pressure which he states was a constant pain which was 7/10 at its worst. The pain did radiate to his left neck and down his left arm. Patient states he fell back asleep but then woke up again with similar pain and shortness of breath. He did take 1 baby aspirin at home. The patient takes 3 antihypertensive medications (lisinopril, hydrochlorothiazide and amlodipine). The patient states that he ran out of his lisinopril and amlodipine 3 days prior to evaluation. The patient states that he had similar pain several months prior. In reviewing the record, the patient was admitted to the hospital in September of 2020 with similar chest pain in was hypertensive secondary to running out of his medications. His EKG revealed new T-wave inversions in the for through V6 which were new compared to May 08, 2020 but not new to previous EKGs. He was admitted to the hospital for workup of acute coronary very syndrome. . He had negative troponins. He had an exercise treadmill test which was normal. He was discharged with a diagnosis of chest pain, hypertensive urgency and electrocardiogram changes resolved. Related Data Previous Rx's Medication Instructions Recorded amlodipine 10 mg PO DAILY #60 tab 09/09/20 hydrochlorothiazide 25 mg PO DAILY #30 tab 09/09/20 lisinopril 20 mg PO DAILY #30 tab 09/09/20 barium sulfate 2 % (w/v) oral 450 ml PO DIRECTED 1 Days #900 10/11/20 suspension ml methylcellulose (laxative) 500 mg 500 mg PO BID #60 tab 10/11/20 tablet clindamycin HCl 450 mg PO Q8H 7 Days #32 cap 01/02/21 hydrocodone-acetaminophen 1 tab PO Q8H PRN 3 Days #9 tab 01/02/21 ibuprofen 800 mg PO Q6-8H PRN #20 tab 01/02/21 Allergies Allergy/AdvReac Type Severity Reaction Status Date / Time acetaminophen [From TYLENOL] Allergy Unknown AGITATION Verified 12/14/20 09:28 codeine [CODEINE] Allergy Unknown CLAUSTROPHO Verified 12/14/20 09:28 CAMILO Review of Systems Review of Systems: Yes all other systems are reviewed and are negative Neurologic: Reports Abnormal speech present FOR[facility]LY [facility] Past Medical History Medical History Abdominal pain Diaphoresis High cholesterol HTN (hypertension) Rectal bleeding Sleep apnea Surgical History No significant past surgical history Family History Family History Mother Heart valve disease Cancer Brother Diabetes mellitus Social History Social History Household Members: Spouse Housing: Other Alcohol intake: current Alcohol intake frequency: a few times a week Alcohol t ype: beer Smoking Status: Current every day smoker Tobacco Type: Cigarette Packs Per Day: 0.5 Cigarettes Per Day: 10 Years Smoked: 30 Smoked in Last 30 Days: Yes Second Hand Smoke Exposure: No Use of substances other than those prescribed or required for medical reasons: No Advance Directives: No Advance Directives Information Provided: No service: No Current occupational status: unemployed Physical Exam Vital Signs: Vital Signs: Last Vital Signs Temp 98.0 F 01/26/21 06:01 Pulse 81 01/26/21 06:01 Resp 15 01/26/21 06:01 BP 191/91 H 01/26/21 06:01 Pulse Ox 98 01/26/21 06:01 Body Mass Index 42.8 Const: General: cooperative and other (Diaphoretic) Orientation/consciousness: oriented to person and oriented to place Limitations: no limitations HENMT: Head: Yes normal to inspection, Yes normocephalic and Yes atraumatic Ears: external ears normal General nose exam: Normal external nose present Face and sinus: Yes normal facial exam Mouth: Normal oral and palatal mucosa present Throat: Yes posterior oropharynx normal Eyes: Periorbital: periorbital findings normal Eyelids: Yes eyelids normal Conjunctivae: conjunctivae normal Sclerae: sclerae normal Corneas: corneas normal Pupils: Equal, round and reactive pupils present Direct Ophthalmoscopy: normal light reflex Neck: Neck: Yes full ROM, Yes no lymphadenopathy, Yes no meningeal signs, Yes trachea midline and Yes supple Chest: Chest palpation & inspection: normal inspection of the chest and tenderness (Left anterior chest, moderate) Resp: Effort & Inspection: normal respiratory effort and able to speak in complete sentences Auscultation: clear to auscultation bilaterally Cardio: Rate: regular rate Rhythm: regular rhythm Heart sounds: S1 normal heart sound present, S2 normal heart sound present and no murmurs GI: Inspection: Yes normal to inspection Palpation (GI): Soft to palpation, nontender, no guarding, not rigid and No hepatosplenomegaly present Auscultation: normal bowel sounds : General: Yes no CVA tenderness Back/Spine/Pelvis: Back: no CVA tenderness Cervical Spine: normal cervical lordosis Thoracic/Lumbar Spine: thoracic and lumbar spine normal to inspection Skin: Lesions: no lesions Rashes: no rashes Wounds: no wounds Neuro: General: oriented to person, oriented to place and no meningeal signs Cranial nerves: Yes CN's II-XII intact bilaterally and Yes Equal, round and reactive pupils present Speech: Abnormal speech present Motor exam (neuro): 5/5 motor strength present throughout Extrem: General: Yes normal to inspection and Yes full ROM Psych: Appearance: well kempt Mental Status: mental status grossly normal Speech and movement: Normal speech and movement present Affect: normal affect Attitude: cooperative Thought process: Normal thought process present Thought content: Normal thought content present Course Course Course Narrative: 50-year-old male who presents emergency department for evaluation of chest chest pain with radiation of pain to his neck and left arm, shortness of breath and anxiety. Patient's physical examination revealed hypertension with a blood pressure of 170/83 otherwise normal vital signs, he did have left anterior chest wall tenderness otherwise exam was unremarkable. The patient's 12 EKG did reveal a sinus rhythm rate of 75 with inverted T-waves in V1 and V2 with inverted T-waves in V3 through V6. This EKG is similar to an EKG dated January 02, 2021 and September 07, 2020 but new compared to May 08, 2020. The patient was pain-free on presentation. I did order a cardiac workup. Patient did appear to be anxious and he was given Ativan 1 mg orally. 0700: The patient's laboratory evaluation is pending at the end of my shift therefore the patient's care was turned over to my colleague, Dr. Leiva. MDM - Chest Pain Lab Data Result diagrams: 01/26/21 06:28 01/26/21 06:28 Labs: Lab Results 01/26/21 01/26/21 Range/Units 06:28 06:28 WBC 6.0 (4.8-10.8) X10*3/uL RBC 4.32 L (4.60-5.80) X10*6/uL Hgb 13.8 L (14.0-18.0) g/dl Hct 39.4 L (42-52) % MCV 91.2 (80-98) fL MCH 31.9 (27.0-33.0) pg MCHC 35.0 (31.0-36.0) g/dl RDW 12.5 (11.0-16.0) % Plt Count 184 D (160-400) X10*3/uL MPV 9.7 (9.4-12.4) fL Immature Gran % (Auto) 0.7 H (0.0-0.4) % Neut % (Auto) 65.7 (45-73) % Lymph % (Auto) 24.2 (20-40) % [place] % (Auto) 6.8 (2-11) % Eos % (Auto) 2.3 (0-4) % Baso % (Auto) 0.3 (0-2) % Lymph # (Auto) 1.5 (1.2-4.9) X10*3/uL [place] # (Auto) 0.4 (0.1-1.2) X10*3/uL Eos # (Auto) 0.1 (0.0-0.4) X10*3/uL Baso # (Auto) 0.0 (0.0-0.2) X10*3/uL Abs Immat Gran (auto) 0.04 H (0.00-0.03) X10*3/uL Absolute Neuts (auto) 4.0 (2.0-8.3) X10*3/uL Absolute Nucleated RBC 0.000 (0.0-0.012) X10*3/uL Nucleated RBC % (auto) 0.0 (0.0-0.2) /100WBC Hold Blue Top SEE NOTE ECG Data ECG #1: Attestation: I personally reviewed and interpreted this ECG as follows: Interpretation: 0611: Sinus rhythm a rate of 75, normal CT interval, prolonged QRS interval of 102 milliseconds, normal QTC interval, inverted T- waves in leads 1, aVL, V3 through V 6. This is unchanged compared to December 25, 2020 and September 07, 2020 but new compared to May 08, 2020. Discharge Plan Discharge Prescriptions: No Action amlodipine 5 mg tablet 10 mg PO DAILY Qty: 60 RF: 0 lisinopril 20 mg tablet 20 mg PO DAILY Qty: 30 RF: 0 hydrochlorothiazide 25 mg tablet 25 mg PO DAILY Qty: 30 RF: 0 clindamycin HCl 300 mg capsule 450 mg PO Q8H 7 Days Qty: 32 RF: 0 ibuprofen 800 mg tablet 800 mg PO Q6-8H PRN (Reason: pain) Qty: 20 RF: 0 hydrocodone-acetaminophen 5-325 mg tablet 1 tab PO Q8H PRN (Reason: pain, severe) 3 Days Qty: 9 RF: 0 Citrucel 500 mg tablet 500 mg PO BID Qty: 60 RF: 5 Readi-Cat 2 2 % (w/v) suspension 450 ml PO DIRECTED 1 Days Qty: 900 RF: 0
--- NOTE | 2021-01-26 06:24 | ECG_ITS ---
Test Reason : CHEST PAIN Blood Pressure : / mmHG Vent. Rate : 075 BPM Atrial Rate : 075 BPM P-R Int : 160 ms QRS Dur : 102 ms QT Int : 388 ms P-R-T Axes : 060 067 148 degrees QTc Int : 433 ms Normal sinus rhythm ST & T wave abnormality, consider anterolateral ischemia Abnormal ECG When compared with ECG of 02-JAN-2021 14:21, No significant change was found Referred By: Farhat Varghese Electronically Signed By:Jorge Chery
[2021-01-26 06:35] LABS: MANUAL DIFF FLAG NO
[2021-01-26 06:36] LABS: Basophils Percent Auto 0.3 % (0-2); Eosinophils Absolute Auto 0.1 X10*3/uL (0.0-0.4); Eosinophils Percent Auto 2.3 % (0-4); Hematocrit 39.4 % (42-52); Hemoglobin 13.8 g/dl (14.0-18.0); Imm Gran Abs Auto 0.04 X10*3/uL (0.00-0.03); Imm Gran Pct Auto 0.7 % (0.0-0.4); Lymphocytes Absolute Auto 1.5 X10*3/uL (1.2-4.9); Lymphocytes Percent Auto 24.2 % (20-40); Mean Corpuscular Hemoglobin 31.9 pg (27.0-33.0); Mean Corpuscular Volume 91.2 fL (80-98); Mean Platelet Volume 9.7 fL (9.4-12.4); Monocytes Absolute Auto 0.4 X10*3/uL (0.1-1.2); Monocytes Percent Auto 6.8 % (2-11); Neutrophils Percent Auto 65.7 % (45-73); Platelet Count 184 X10*3/uL (160-400); Red Blood Count 4.32 X10*6/uL (4.60-5.80); Red Cell Distribution Width 12.5 % (11.0-16.0)
[2021-01-26 06:59] LABS: Anion Gap 13 (12-20); Blood Urea Nitrogen 16 mg/dL (9-16); Calcium 8.4 mg/dL (8.4-10.2); Carbon Dioxide 23 mmol/L (22-29); Chloride 108 mmol/L (96-108); Creatinine Clr Calc Pharmacy 124.7; Estimated Glomerular Filt Rate > 60; Glucose Random 153 mg/dL (60-115); Sodium 140 mmol/L (135-145)
[2021-01-26 07:06] LABS: Troponin-I High Sensitivity 8.3 ng/L (<3.5-35.0)
[2021-01-26] MEDS: LORazepam 1 MG TABLET PO (07:43)
[2021-01-26 08:09] LABS: D Dimer < 200 NG/ML
[2021-01-26 11:54] LABS: Troponin-I High Sensitivity 6.9 ng/L (<3.5-35.0)
[2021-01-26] MEDS: lisinopriL 20 MG TABLET PO (12:53)
[2021-01-26] MEDS: amLODIPine Besylate 5 MG TABLET PO (12:54)
[2021-01-26] MEDS: hydroCHLOROthiazide 25 MG TABLET PO (12:54)
== END 2021-01-26 13:07 | disposition home or self-care (01) ==
PROVIDERS: Emergency Medicine; Emergency Provider Emergency Medicine Emergency Medical Services; PCP Pediatrics
DX: R07.89 Other chest pain (principal); M54.2 Cervicalgia; M79.602 Pain in left arm; F41.1 Generalized anxiety disorder; F43.0 Acute stress reaction; I10 Essential (primary) hypertension; F17.210 Nicotine dependence, cigarettes, uncomplicated; Z71.6 Tobacco abuse counseling; Z79.899 Other long term (current) drug therapy
CPT/HCPCS: 36415; 71045; 80048; 84484; 85025; 85379; 93005; 99285

== ENCOUNTER 2021-02-10 14:53 | Outpatient (REF) | payer OTHER, SELFPAY ==
[2021-02-10 15:30] LABS: COVID-19 Test Negative (Negative)
== END 2021-02-10 14:54 | disposition home or self-care (01) ==
LOC: HO.LAB 14:53
PROVIDERS: Visit Provider Internal Medicine
DX: Z20.822 Contact with and (suspected) exposure to COVID-19 (principal)
CPT/HCPCS: 36415; 87635; C9803

== ENCOUNTER 2021-02-14 11:16 | Outpatient (REF) | payer OTHER, SELFPAY ==
[2021-02-14 13:56] LABS: Alanine Aminotransferase 33 U/L (0-40); Albumin Level 4.6 g/dL (3.5-5.0); Alkaline Phosphatase 71 U/L (39-117); Anion Gap 13 (12-20); Aspartate Amino Transferase 21 U/L (5-37); Bilirubin Total 0.2 mg/dL (0.0-1.0); Blood Urea Nitrogen 12 mg/dL (9-16); Calcium 9.6 mg/dL (8.4-10.2); Carbon Dioxide 29 mmol/L (22-29); Chloride 102 mmol/L (96-108); Estimated Glomerular Filt Rate > 60; Glucose Random 98 mg/dL (60-115); Potassium 4.6 mmol/L (3.3-5.1); Sodium 139 mmol/L (135-145); Total Protein 7.4 g/dL (6.5-8.0)
== END 2021-02-14 11:17 | disposition home or self-care (01) ==
LOC: HO.LAB 11:16
PROVIDERS: Visit Provider Physician Assistant
DX: R10.11 Right upper quadrant pain (principal); Z78.9 Other specified health status
CPT/HCPCS: 36415; 80053; 99212

== ENCOUNTER 2021-04-01 08:59 | Emergency (ER) | payer OTHER, SELFPAY ==
--- NOTE | ~2021-04-01 | CT_ITS ---
EXAMINATION: CT GI BLEED ABDOMEN AND PELVIS WITHOUT AND WITH CONTRAST AND DELAYED IMAGING CLINICAL INFORMATION: GI bleed. Left-sided abdominal pain. COMPARISON: CT abdomen and pelvis 10/20/2020 TECHNIQUE: 5 mm thin axial and reformatted 2 mm thin sagittal coronal images of abdomen and pelvis were obtained without/with IV 100 mL Omnipaque 350 and delayed 2 mm thin imaging of the abdomen and pelvis. DLP 2121 FINDINGS: The lung bases are clear. The heart size is normal. There is mild hypoattenuation seen throughout the liver without any focal lesion or intrahepatic ductal dilatation. Visualized spleen, pancreas and right adrenal are unremarkable. There is bilobed versus 2 separate left adrenal nodules. They measure 1.5 x 1.5 cm and 1.3 x 1.1 cm. . Both kidneys are normal size, shape and position. Symmetrical cortical nephrograms noted. There is a small 5 mm cortical cyst midpole right kidney coronal image 80/13. No radiopaque calculi or hydronephrosis seen mild bilateral perinephric stranding. The abdominal aorta is of normal caliber. New shotty lymph nodes are seen in the left paratracheal region, nonspecific measuring 1 cm axial image 38/16. There is a small umbilical hernia containing intraperitoneal fat. There is scattered stool and gas seen throughout the colon without any colonic distention. The appendix is normal caliber. There is no colonic wall thickening, mass or obstruction. On delayed images there is no hypodensity seen in the colon suspect any extravasation or site of bleed. The small bowel loops are normal caliber. The stomach is nondistended and appears unremarkable. Imaging through the pelvis reveal scattered stool in sigmoid colon. No free fluid or free air seen. No abnormal inguinal lymph nodes or hernia. Bone windows reveal mild ventral spondylosis L2-L3 and lower dorsal spine. No aggressive lytic or sclerotic lesions seen. CT/CT gi bleed abd pel wo/w con IMPRESSION: Moderate constipation. No obstruction, mural thickening or extravasation of intraluminal contrast in the GI system to suspect any site of bleed. Bilobed versus 2 separate left adrenal lesions, stable.
[2021-04-01 09:01] VITALS: BP 180/99; PULSE 91; RESP 16; TEMP 36.6; O2SAT 97; BMI 45.4
--- NOTE | 2021-04-01 09:14 | ED.GENADULT ---
HPI - General Adult General Chief complaint: General Medical Stated complaint: rectal bleeding Time Seen by Provider: 04/01/21 09:09 Source: patient Mode of arrival: ambulatory Limitations: no limitations History of Present Illness HPI narrative: 50 y/o male with history HTN, MARIBELL, HLD, rectal bleeding who presents to the ER with intermittent rectal bleeding for the last 1 year, worse in the last few days. He reports 4 episodes of BRBPR this week, one this morning and two yesterday. He states it is daniel blood usually before he passes stool and his stool is light brown. He has some left sided abdominal pain associated with this, also on/off for 1 year. He was seen by GI in February and is supposed to get a colonoscopy soon, as soon as his BP is under better control. He is not on anticoagulation but take a baby aspirin when he has aches and pains. He denies NSAID use. Social ETOH use. No melena or vomiting but he is nauseous at times. No fever or chills or urinary symptoms. He denies history of hemorrhoids but got a prescribed hemorrhoid cream from GI. He admits to rectal burning and cramping at times. MD complaint: rectal bleeding Onset (ago): year(s) Location: abdomen and buttocks Radiation: non-radiation Severity: mild Severity scale (1-10): 4 Quality: aching Pain Consistency: intermittent Relieving factors: none Exacerbating factors: none Associated symptoms: denies other symptoms Treatments prior to arrival: none Related Data Previous Rx's Medication Instructions Recorded hydrocortisone 2.5 % topical cream 1 appl CO BID PRN #30 g 02/14/21 with perineal applicator methylcellulose (laxative) 500 mg 500 mg PO BID #60 tab 02/14/21 tablet amlodipine 5 mg tablet 5 mg PO DAILY #30 tab 04/01/21 amlodipine [Norvasc] 10 mg PO DAILY #30 tab 04/01/21 hydrochlorothiazide 25 mg PO DAILY #30 tab 04/01/21 hydrochlorothiazide 25 mg tablet 25 mg PO DAILY #30 tab 04/01/21 hydrocortisone-pramoxine 1 appl CO BID PRN #10 g 04/01/21 [Proctofoam HC] lisinopril 20 mg PO DAILY #30 tab 04/01/21 lisinopril 20 mg tablet 20 mg PO DAILY #30 tab 04/01/21 polyethylene glycol 3350 [Miralax] 17 g PO DAILY #30 ea 04/01/21 sennosides-docusate sodium [Colace 1 tab-cap PO BEDTIME #14 tab 04/01/21 2-In-1] Allergies Allergy/AdvReac Type Severity Reaction Status Date / Time acetaminophen [From TYLENOL] Allergy Unknown AGITATION Verified 02/14/21 12:00 codeine [CODEINE] Allergy Unknown CLAUSTROPHO Verified 02/14/21 12:00 CAMILO Review of Systems Review of Systems: Constitutional: No Fever, No Chills ENT/Mouth: No sore throat, No Rhinorrhea, No Swallowing Difficulty Eyes: No Eye Pain, No Swelling, No Redness Cardiovascular: No Chest Pain, No SOB, No Orthopnea, No Edema Respiratory: No Cough, No Sputum, No Wheezing, No dyspnea Gastrointestinal: No Nausea, No Vomiting, No Diarrhea, + abdominal Pain, + Hematochezia, No Melena Genitourinary: No Dysuria, No Urinary Frequency, No Hematuria Musculoskeletal: No joint pain, No Myalgias Skin: No Skin Lesions, No rash Neuro: No Weakness, No Numbness, No Dizziness, No Headache Psych: No Anxiety/Panic, No Depression Heme/Lymph: No Bruising, No Lymphadenopathy Endocrine: No Polyuria, No Polydipsia PMFSH Past Medical History Attestation statement: The following information was validated with the patient. Medical History Abdominal pain Diaphoresis High cholesterol HTN (hypertension) Rectal bleeding Sleep apnea Surgical History No significant past surgical history Family History Family History Mother Heart valve disease Cancer Brother Diabetes mellitus Social History Social History Household Members: Spouse Household Members Other:: fiance and kids Housing: Other Housing Other:: long-term/apt Do you presently have visiting nurse or other home services: No Alcohol intake: current Alcohol intake frequency: holidays/special occasions only Alcohol type: beer Patient Tobacco Use Status: Current everyday Tobacco user Cigarette Packs Per Day: 0.5 Cigarettes Per Day: 10 Years Smoked: 30 Smoked in Last 30 Days: Yes Second Hand Smoke Exposure: No Use of substances other than those prescribed or required for medical reasons: No Advance Directives: Yes Advance Directives Information Provided: Yes Advance Directives on File: No service: No Current occupational status: unemployed Physical Exam Vital Signs: Vital Signs: Last Vital Signs Temp 98 F 04/01/21 09:01 Pulse 78 04/01/21 10:38 Resp 16 04/01/21 09:01 BP 148/68 H 04/01/21 10:38 Pulse Ox 96 04/01/21 10:38 Body Mass Index 45.4 Appearance: Alert. Oriented X3. No acute distress. Eyes: Pupils equal, round and reactive to light. ENT: Pharynx normal. Neck: Normal inspection. Neck supple. CVS: Normal heart rate and rhythm. Pulses normal. Respiratory: No respiratory distress. Breath sounds normal. Abdomen: Obese, Softly distended and nontender. +BS x4. AN: normal inspection, non-tender, no palpable hemorrhoids, brown stool Skin: Skin warm and dry. Normal skin color. Normal skin turgor. No rashes. Extremities: No lower extremity edema. Neuro: Oriented X 3. No motor deficit. No sensory deficit. Course Course Course Narrative: 50 yo male presenting with rectal bleeding and left sided abdominal pain on/off for 1 year. 4 episodes this week, no signs or symptoms of symptomatic anemia. No palpable hemorrhoids on examination. Will get CBC, coags, basic labs and CT scan GI protocol. Reevaluation(s) Reevaluation #1: H/H is up from his baseline with hematocrit of 41. His labs are unremarkable. No episodes of GI bleeding here. SBP elevated 180/110s - given extra 5 mg Norvasc with good effect. His poorly controlled BP has been delaying his colonopscy evaluation. Will plan to increases his home Norvasc to 10 mg daily. Reevaluation #2: CT scan GI bleed protocol negative. Stable for d/c home with GI follow up. Patient agrees with plan. 1 month supply of antihypertensives supplied until he can be seen by his doctor. Medical Decision Making Lab Data Result diagrams: 04/01/21 09:17 04/01/21 09:17 Labs: Lab Results 04/01/21 04/01/21 04/01/21 Range/Units 09:17 09:17 09:17 WBC 5.8 (4.8-10.8) X10*3/uL RBC 4.61 (4.60-5.80) X10*6/uL Hgb 14.4 (14.0-18.0) g/dl Hct 41.2 L (42-52) % MCV 89.4 (80-98) fL MCH 31.2 (27.0-33.0) pg MCHC 35.0 (31.0-36.0) g/dl RDW 12.4 (11.0-16.0) % Plt Count 210 (160-400) X10*3/uL MPV 9.6 (9.4-12.4) fL Immature Gran % (Auto) 1.0 H (0.0-0.4) % Neut % (Auto) 65.1 (45-73) % Lymph % (Auto) 25.4 (20-40) % [place] % (Auto) 5.8 (2-11) % Eos % (Auto) 2.4 (0-4) % Baso % (Auto) 0.3 (0-2) % Lymph # (Auto) 1.5 (1.2-4.9) X10*3/uL [place] # (Auto) 0.3 (0.1-1.2) X10*3/uL Eos # (Auto) 0.1 (0.0-0.4) X10*3/uL Baso # (Auto) 0.0 (0.0-0.2) X10*3/uL Abs Immat Gran (auto) 0.06 H (0.00-0.03) X10*3/uL Absolute Neuts (auto) 3.8 (2.0-8.3) X10*3/uL Absolute Nucleated RBC 0.000 (0.0-0.012) X10*3/uL Nucleated RBC % (auto) 0.0 (0.0-0.2) /100WBC PT 11.6 (10.8-13.0) SEC INR 1.0 (0.9-1.1) APTT 46.1 H (24.1-38.0) SEC Sodium 139 (135-145) mmol/L Potassium 4.2 (3.3-5.1) mmol/L Chloride 103 (96-108) mmol/L Carbon Dioxide 28 (22-29) mmol/L Anion Gap 12 (12-20) BUN 16 (9-16) mg/dL Creatinine 0.84 (0.5-1.4) mg/dL Estim Creat Clear Calc 124.4 Estimated GFR > 60 Random Glucose 105 (60-115) mg/dL Calcium 9.5 (8.4-10.2) mg/dL Magnesium 2.2 (1.6-2.6) mg/dL Total Bilirubin 0.4 (0.0-1.0) mg/dL Direct Bilirubin < 0.2 (0.0-0.5) mg/dL AST 20 (5-37) U/L ALT 34 (0-40) U/L Alkaline Phosphatase 59 (39-117) U/L Total Protein 7.1 (6.5-8.0) g/dL Albumin 4.5 (3.5-5.0) g/dL Urine Color Urine Appearance Urine pH (5.0-8.0) Ur Specific [place] (1.005-1.025) Urine Protein (NEG-TRACE) MG/DL Urine Glucose (UA) (NEG) MG/DL Urine Ketones (NEG) MG/DL Urine Blood (NEG) Urine Nitrite (NEG) Ur Leukocyte Esterase (NEG) Urine RBC (0) /HPF Urine WBC (0-4) /HPF Ur Squamous Epith Cells /LPF Ur Renal Epithelial Cell /LPF Calcium Phosphate Cryst /LPF Urine Bacteria /LPF Stool Occult Blood (NEGATIVE) 04/01/21 04/01/21 Range/Units 09:37 10:42 WBC (4.8-10.8) X10*3/uL RBC (4.60-5.80) X10*6/uL Hgb (14.0-18.0) g/dl Hct (42-52) % MCV (80-98) fL MCH (27.0-33.0) pg MCHC (31.0-36.0) g/dl RDW (11.0-16.0) % Plt Count (160-400) X10*3/uL MPV (9.4-12.4) fL Immature Gran % (Auto) (0.0-0.4) % Neut % (Auto) (45-73) % Lymph % (Auto) (20-40) % [place] % (Auto) (2-11) % Eos % (Auto) (0-4) % Baso % (Auto) (0-2) % Lymph # (Auto) (1.2-4.9) X10*3/uL [place] # (Auto) (0.1-1.2) X10*3/uL Eos # (Auto) (0.0-0.4) X10*3/uL Baso # (Auto) (0.0-0.2) X10*3/uL Abs Immat Gran (auto) (0.00-0.03) X10*3/uL Absolute Neuts (auto) (2.0-8.3) X10*3/uL Absolute Nucleated RBC (0.0-0.012) X10*3/uL Nucleated RBC % (auto) (0.0-0.2) /100WBC PT (10.8-13.0) SEC INR (0.9-1.1) APTT (24.1-38.0) SEC Sodium (135-145) mmol/L Potassium (3.3-5.1) mmol/L Chloride (96-108) mmol/L Carbon Dioxide (22-29) mmol/L Anion Gap (12-20) BUN (9-16) mg/dL Creatinine (0.5-1.4) mg/dL Estim Creat Clear Calc Estimated GFR Random Glucose (60-115) mg/dL Calcium (8.4-10.2) mg/dL Magnesium (1.6-2.6) mg/dL Total Bilirubin (0.0-1.0) mg/dL Direct Bilirubin (0.0-0.5) mg/dL AST (5-37) U/L ALT (0-40) U/L Alkaline Phosphatase (39-117) U/L Total Protein (6.5-8.0) g/dL Albumin (3.5-5.0) g/dL Urine Color YELLOW Urine Appearance CLEAR Urine pH 6.0 (5.0-8.0) Ur Specific [place] 1.020 (1.005-1.025) Urine Protein TRACE (NEG-TRACE) MG/DL Urine Glucose (UA) NEG (NEG) MG/DL Urine Ketones NEG (NEG) MG/DL Urine Blood 1+ H (NEG) Urine Nitrite NEG (NEG) Ur Leukocyte Esterase NEG (NEG) Urine RBC 1-4 (0) /HPF Urine WBC 0-2 (0-4) /HPF Ur Squamous Epith Cells TRACE /LPF Ur Renal Epithelial Cell TRACE /LPF Calcium Phosphate Cryst TRACE /LPF Urine Bacteria NONE /LPF Stool Occult Blood POSITIVE (NEGATIVE) Discharge Plan Discharge Clinical Impression: Rectal bleeding Constipation Qualifiers: Constipation type: unspecified constipation type Qualified Code(s): K59.00 - Constipation, unspecified Patient Disposition: Home, Self-Care Instructions: Constipation (ED), Rectal Bleeding (ED) Additional Instructions: Your blood counts did not show any anemia, they were better than you previous blood counts. The rest of your bloodworkup was normal. Your CT scan did not show any causes of your pain and no sites of bleeding. Recommend trial of hemorrhoid cream if you have intermittent internal hemorrhoidal bleeding. Increase your water and fiber intake. Recommend starting Miralax and Colace for constipation. Constipation can worsen hemorrhoidal bleeding 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 GI. You need a colonoscopy. If you have any worsening symptoms come back to the ER for further evaluation. Prescriptions: New Proctofoam HC 1-1 % foam 1 appl CO BID PRN (Reason: hemorrhoids) Qty: 10 RF: 0 polyethylene glycol 3350 [Miralax] 17 gram powder in packet 17 g PO DAILY Qty: 30 RF: 0 sennosides-docusate sodium [Colace 2-In-1] 8.6-50 mg tablet 1 tab-cap PO BEDTIME Qty: 14 RF: 0 amlodipine [Norvasc] 10 mg tablet 10 mg PO DAILY Qty: 30 RF: 0 lisinopril 20 mg tablet 20 mg PO DAILY Qty: 30 RF: 0 hydrochlorothiazide 25 mg tablet 25 mg PO DAILY Qty: 30 RF: 0 No Action amlodipine 5 mg tablet 5 mg PO DAILY Qty: 30 RF: 0 hydrochlorothiazide 25 mg tablet 25 mg PO DAILY Qty: 30 RF: 0 lisinopril 20 mg tablet 20 mg PO DAILY Qty: 30 RF: 0 Citrucel 500 mg tablet 500 mg PO BID Qty: 60 RF: 5 hydrocortisone [Proctozone-HC] 2.5 % cream with perineal applicator 1 appl CO BID PRN (Reason: hemorrhoids) Qty: 30 RF: 3 Referrals: Michaela Garg MD [Physician] - 2 days (rectal bleeding) Interventions: ED Discharge Assessment Last Done: 04/01/21 12:23 Discharge Date/Time: 04/01/21 12:24
[2021-04-01 09:22] VITALS: BP 189/108; PULSE 86; O2SAT 93
[2021-04-01 09:23] LABS: MANUAL DIFF FLAG NO
[2021-04-01 09:25] LABS: Basophils Percent Auto 0.3 % (0-2); Eosinophils Absolute Auto 0.1 X10*3/uL (0.0-0.4); Eosinophils Percent Auto 2.4 % (0-4); Hematocrit 41.2 % (42-52); Hemoglobin 14.4 g/dl (14.0-18.0); Imm Gran Abs Auto 0.06 X10*3/uL (0.00-0.03); Lymphocytes Absolute Auto 1.5 X10*3/uL (1.2-4.9); Lymphocytes Percent Auto 25.4 % (20-40); Mean Corpuscular Hemoglobin 31.2 pg (27.0-33.0); Mean Corpuscular Volume 89.4 fL (80-98); Mean Platelet Volume 9.6 fL (9.4-12.4); Monocytes Absolute Auto 0.3 X10*3/uL (0.1-1.2); Monocytes Percent Auto 5.8 % (2-11); Neutrophils Absolute Auto 3.8 X10*3/uL (2.0-8.3); Neutrophils Percent Auto 65.1 % (45-73); Platelet Count 210 X10*3/uL (160-400); Red Blood Count 4.61 X10*6/uL (4.60-5.80); Red Cell Distribution Width 12.4 % (11.0-16.0); White Blood Count 5.8 X10*3/uL (4.8-10.8)
[2021-04-01 09:30] LABS: Prothrombin Time 11.6 SEC (10.8-13.0)
[2021-04-01 09:33] LABS: Partial Thromboplastin Time 46.1 SEC (24.1-38.0)
[2021-04-01 09:38] VITALS: BP 136/83
[2021-04-01] MEDS: amLODIPine Besylate 5 MG TABLET PO (09:38)
[2021-04-01 09:39] VITALS: BP 136/83
[2021-04-01 09:45] LABS: OBS Int Ctl Valid YES; OBS1 POSITIVE (NEGATIVE)
[2021-04-01 10:13] LABS: Alanine Aminotransferase 34 U/L (0-40); Albumin Level 4.5 g/dL (3.5-5.0); Alkaline Phosphatase 59 U/L (39-117); Anion Gap 12 (12-20); Aspartate Amino Transferase 20 U/L (5-37); Bilirubin Direct < 0.2 mg/dL (0.0-0.5); Bilirubin Total 0.4 mg/dL (0.0-1.0); Blood Urea Nitrogen 16 mg/dL (9-16); Calcium 9.5 mg/dL (8.4-10.2); Carbon Dioxide 28 mmol/L (22-29); Chloride 103 mmol/L (96-108); Creatinine Clr Calc Pharmacy 124.4; Estimated Glomerular Filt Rate > 60; Glucose Random 105 mg/dL (60-115); Magnesium 2.2 mg/dL (1.6-2.6); Potassium 4.2 mmol/L (3.3-5.1); Sodium 139 mmol/L (135-145); Total Protein 7.1 g/dL (6.5-8.0)
[2021-04-01 10:38] VITALS: BP 148/68; PULSE 78; O2SAT 96
[2021-04-01 10:47] LABS: Glucose Urine UA NEG (NEG); Leukocyte Esterase Urine NEG (NEG); Nitrite Urine NEG (NEG); Urine Blood 1+ (NEG); Urine Ketones NEG (NEG); Urine Protein TRACE MG/DL (NEG-TRACE)
[2021-04-01 10:49] LABS: Appearance Urine CLEAR; Color Urine YELLOW
[2021-04-01 10:58] LABS: Squamous Epithelial Cell Urine TRACE /LPF; WBC Urine 0-2 /HPF (0-4)
[2021-04-01 10:59] LABS: Calcium Phosphate Crystals Ur TRACE /LPF; Renal Epithelial Cells Urine TRACE /LPF
[2021-04-01] MEDS: iohexoL 350 MG/ML 100 ML INFUS..BTL 85 ML IV (11:08)
== END 2021-04-01 12:24 | disposition home or self-care (01) ==
PROVIDERS: Physician Assistant; Emergency Provider Emergency Medicine
DX: K62.5 Hemorrhage of anus and rectum (principal); K59.00 Constipation, unspecified; I10 Essential (primary) hypertension; Z79.899 Other long term (current) drug therapy
CPT/HCPCS: 36415; 74178; 80048; 80076; 81001; 82272; 83735; 85025; 85610; 85730; 99284; Q9967

== ENCOUNTER 2021-05-23 04:37 | Emergency (ER) | payer OTHER, SELFPAY ==
--- NOTE | ~2021-05-23 | XR_ITS ---
EXAMINATION: XR CHEST CLINICAL INFORMATION: Chest pain COMPARISON: 01/26/2021 TECHNIQUE: Frontal view of the chest was obtained. FINDINGS: Cardiac leads overlie the chest. The lungs are well expanded. There is no focal consolidation, edema, or effusion. No pneumothorax. The cardiomediastinal silhouette is within normal limits. No acute osseous abnormality. XR/XR chest 1V IMPRESSION: Clear lungs.
--- NOTE | 2021-05-23 04:45 | ECG_ITS ---
Test Reason : CHEST PAIN Blood Pressure : / mmHG Vent. Rate : 093 BPM Atrial Rate : 093 BPM P-R Int : 162 ms QRS Dur : 104 ms QT Int : 348 ms P-R-T Axes : 049 078 115 degrees QTc Int : 432 ms Normal sinus rhythm Nonspecific T wave abnormality Abnormal ECG When compared with ECG of 26-JAN-2021 06:11, T wave inversion less evident in Anterolateral leads Referred By: Akosua Steinberg Electronically Signed By:JEREMY HANKINS
[2021-05-23 04:46] VITALS: BP 173/92; PULSE 88; RESP 24; TEMP 36.7; O2SAT 98; BMI 43.2
[2021-05-23 05:10] LABS: MANUAL DIFF FLAG NO
[2021-05-23 05:12] LABS: Basophils Percent Auto 0.3 % (0-2); Eosinophils Absolute Auto 0.1 X10*3/uL (0.0-0.4); Eosinophils Percent Auto 1.7 % (0-4); Hematocrit 39.7 % (42-52); Imm Gran Abs Auto 0.07 X10*3/uL (0.00-0.03); Imm Gran Pct Auto 0.9 % (0.0-0.4); Lymphocytes Absolute Auto 2.7 X10*3/uL (1.2-4.9); Lymphocytes Percent Auto 35.5 % (20-40); Mean Corpuscular HGB Conc 35.3 g/dl (31.0-36.0); Mean Corpuscular Hemoglobin 31.7 pg (27.0-33.0); Mean Platelet Volume 10.1 fL (9.4-12.4); Monocytes Absolute Auto 0.5 X10*3/uL (0.1-1.2); Monocytes Percent Auto 6.4 % (2-11); Neutrophils Absolute Auto 4.1 X10*3/uL (2.0-8.3); Neutrophils Percent Auto 55.2 % (45-73); Platelet Count 242 X10*3/uL (160-400); Red Blood Count 4.41 X10*6/uL (4.60-5.80); Red Cell Distribution Width 12.9 % (11.0-16.0); White Blood Count 7.5 X10*3/uL (4.8-10.8)
[2021-05-23 05:27] LABS: COVID-19 Test Negative (Negative)
[2021-05-23 05:35] LABS: Troponin-I High Sensitivity 6.8 ng/L (<3.5-35.0)
--- NOTE | 2021-05-23 05:38 | ED.SOB ---
HPI - SOB/Dyspnea General Chief Complaint: Dyspnea Stated Complaint: chest pain, SoB Time Seen by Provider: 05/23/21 04:45 Source: patient Mode of arrival: ambulatory History of Present Illness HPI Narrative: 50-year-old male, every day smoker, with a known history of sleep apnea who presents with 2 episodes of events where he awoke suddenly, ?scared?, and anxious complaining shortness of breath and gasping with some associated chest pain and noted tingling in the left upper extremity. Patient does endorse that he was sleeping on his left side at that time that this occurred. His symptoms resolved he return to sleep and the 2nd time had similar symptoms and decided to proceed to the emergency room for further evaluation. Patient said that he use to have a ?sleep machine but then ?they took it away?. Otherwise, patient denies any fever, chills, sore throat, new cough, GI or symptoms. Related Data Previous Rx's Medication Instructions Recorded hydrocortisone 2.5 % topical cream 1 appl [place] BID PRN #30 g 02/14/21 with perineal applicator (Proctozone-HC) methylcellulose (laxative) 500 mg 500 mg PO BID #60 tab 02/14/21 tablet (Citrucel) hydrocortisone 1 %-pramoxine 1 % 1 appl [place] BID PRN #10 g 04/01/21 rectal foam (Proctofoam HC) lisinopril 20 mg tablet 20 mg PO DAILY #30 tab 04/01/21 polyethylene glycol 3350 17 gram 17 g PO DAILY #30 ea 04/01/21 oral powder packet (Miralax) sennosides 8.6 mg-docusate sodium 1 tab-cap PO BEDTIME #14 tab 04/01/21 50 mg tablet (Colace 2-In-1) amlodipine 5 mg tablet 5 mg PO BID #60 tab 05/17/21 hydrochlorothiazide 25 mg tablet 25 mg PO DAILY #30 tab 05/17/21 lisinopril 40 mg tablet 40 mg PO DAILY #30 tab 05/17/21 Allergies Allergy/AdvReac Type Severity Reaction Status Date / Time acetaminophen [From TYLENOL] Allergy Unknown AGITATION Verified 05/17/21 07:44 codeine [CODEINE] Allergy Unknown CLAUSTROPHO Verified 05/17/21 07:44 CAMILO Review of Systems Review of Systems: Pertinent positives and negatives as stated in HPI 10 point review of systems is otherwise negative. [facility] Past Medical History Source: nursing notes reviewed Medical History Abdominal pain Diaphoresis High cholesterol HTN (hypertension) Rectal bleed Rectal bleeding Sleep apnea Surgical History No significant past surgical history Family History Family History Mother Heart valve disease Cancer Brother Diabetes mellitus Social History Social History Household Members: Spouse Household Members Other:: fiance and kids Housing: Other Housing Other:: residential/apt Do you presently have visiting nurse or other home services: No Alcohol intake: never Patient Tobacco Use Status: Current everyday Tobacco user Cigarettes Per Day: 5 Years Smoked: 30 Smoked in Last 30 Days: Yes e-Cigarette/Vaping Use: Never Used Second Hand Smoke Exposure: No Use of substances other than those prescribed or required for medical reasons: No Advance Directives: No Advance Directives Information Provided: Yes service: No Current occupational status: unemployed Physical Exam Vital Signs: Vital Signs: Last Vital Signs Temp 98.0 F 05/23/21 04:46 Pulse 85 05/23/21 06:00 Resp 18 05/23/21 06:00 BP 173/92 H 05/23/21 04:46 Pulse Ox 98 05/23/21 06:00 Body Mass Index 43.2 VITAL SIGNS: Reviewed. GENERAL: Well developed, well nourished, in no acute distress. HEAD: Normocephalic/atraumatic EYES: PERRLA, EOMI OROPHARYNX: no oral lesions noted, posterior pharynx clear LUNGS: Normal breath sounds. No adventitious sounds or accessory muscle use. SpO2<98> CARDIOVASCULAR: Regular rate and rhythm without noted murmurs ABDOMEN: Soft, non-tender, non-distended with bowel sounds. SKIN: Inspection of the skin reveals no rashes NEUROLOGIC: Alert and oriented x 4. Strength and sensation to light touch were grossly intact x 4, no pronator drift, cranial nerves 2-12 grossly intact, no facial asymmetry Course Course Course Narrative: 50-year-old male with history and clinical presentation suggestive of possible viral illness, cardiopulmonary etiology, and low clinical suspicion for neurologic deficit. Of note, patient presents with classic MARIBELL symptoms and meets STOP-BANG criteria. Review of all investigations negative for acute findings there is a slightly detectable troponin that is consistent with prior values obtained in the past without noted EKG changes. Will repeat 2nd troponin to ensure no rise, but afterwards if no delta 50% then patient can be discharged in stable condition and knows that he needs to call his primary care provider and get evaluated for MARIBELL. He was also counseled on smoking cessation. Signed out to Dr Roberts. MDM - SOB/Dyspnea Lab Data Result diagrams: 05/23/21 05:06 05/23/21 05:06 Labs: Lab Results 05/23/21 05/23/21 05/23/21 Range/Units 05:06 05:06 05:06 WBC 7.5 (4.8-10.8) X10*3/uL RBC 4.41 L (4.60-5.80) X10*6/uL Hgb 14.0 (14.0-18.0) g/dl Hct 39.7 L (42-52) % MCV 90.0 (80-98) fL MCH 31.7 (27.0-33.0) pg MCHC 35.3 (31.0-36.0) g/dl RDW 12.9 (11.0-16.0) % Plt Count 242 (160-400) X10*3/uL MPV 10.1 (9.4-12.4) fL Immature Gran % (Auto) 0.9 H (0.0-0.4) % Neut % (Auto) 55.2 (45-73) % Lymph % (Auto) 35.5 (20-40) % Pershing % (Auto) 6.4 (2-11) % Eos % (Auto) 1.7 (0-4) % Baso % (Auto) 0.3 (0-2) % Lymph # (Auto) 2.7 (1.2-4.9) X10*3/uL Pershing # (Auto) 0.5 (0.1-1.2) X10*3/uL Eos # (Auto) 0.1 (0.0-0.4) X10*3/uL Baso # (Auto) 0.0 (0.0-0.2) X10*3/uL Abs Immat Gran (auto) 0.07 H (0.00-0.03) X10*3/uL Absolute Neuts (auto) 4.1 (2.0-8.3) X10*3/uL Absolute Nucleated RBC 0.000 (0.0-0.012) X10*3/uL Nucleated RBC % (auto) 0.0 (0.0-0.2) /100WBC PT (9.9-13.0) SEC INR (0.9-1.1) Sodium 140 (135-145) mmol/L Potassium 3.9 (3.3-5.1) mmol/L Chloride 103 (96-108) mmol/L Carbon Dioxide 23 (22-29) mmol/L Anion Gap 18 (12-20) BUN 17 H (9-16) mg/dL Creatinine 1.05 (0.5-1.4) mg/dL Estim Creat Clear Calc 96.7 Estimated GFR > 60 Random Glucose 140 H (60-115) mg/dL Calcium 9.4 (8.4-10.2) mg/dL Total Bilirubin 0.2 (0.0-1.0) mg/dL AST 18 (5-37) U/L ALT 42 H (0-40) U/L Alkaline Phosphatase 69 (39-117) U/L Troponin I High Sens (<3.5-35.0) ng/L Total Protein 7.3 (6.5-8.0) g/dL Albumin 4.4 (3.5-5.0) g/dL Lipase (8-78) U/L COVID-19 (ELYSE) Negative (Negative) COVID-19 Clin Com See Note 05/23/21 05/23/21 05/23/21 Range/Units 05:06 05:06 05:06 WBC (4.8-10.8) X10*3/uL RBC (4.60-5.80) X10*6/uL Hgb (14.0-18.0) g/dl Hct (42-52) % MCV (80-98) fL MCH (27.0-33.0) pg MCHC (31.0-36.0) g/dl RDW (11.0-16.0) % Plt Count (160-400) X10*3/uL MPV (9.4-12.4) fL Immature Gran % (Auto) (0.0-0.4) % Neut % (Auto) (45-73) % Lymph % (Auto) (20-40) % Pershing % (Auto) (2-11) % Eos % (Auto) (0-4) % Baso % (Auto) (0-2) % Lymph # (Auto) (1.2-4.9) X10*3/uL Pershing # (Auto) (0.1-1.2) X10*3/uL Eos # (Auto) (0.0-0.4) X10*3/uL Baso # (Auto) (0.0-0.2) X10*3/uL Abs Immat Gran (auto) (0.00-0.03) X10*3/uL Absolute Neuts (auto) (2.0-8.3) X10*3/uL Absolute Nucleated RBC (0.0-0.012) X10*3/uL Nucleated RBC % (auto) (0.0-0.2) /100WBC PT 9.7 L (9.9-13.0) SEC INR 0.9 (0.9-1.1) Sodium (135-145) mmol/L Potassium (3.3-5.1) mmol/L Chloride (96-108) mmol/L Carbon Dioxide (22-29) mmol/L Anion Gap (12-20) BUN (9-16) mg/dL Creatinine (0.5-1.4) mg/dL Estim Creat Clear Calc Estimated GFR Random Glucose (60-115) mg/dL Calcium (8.4-10.2) mg/dL Total Bilirubin (0.0-1.0) mg/dL AST (5-37) U/L ALT (0-40) U/L Alkaline Phosphatase (39-117) U/L Troponin I High Sens 6.8 (<3.5-35.0) ng/L Total Protein (6.5-8.0) g/dL Albumin (3.5-5.0) g/dL Lipase 30 (8-78) U/L COVID-19 (ELYSE) (Negative) COVID-19 Clin Com ECG Data Attestation: I personally reviewed and interpreted this ECG as follows: Prior ECG tracings: available for review (01/26/[address] abnormality and lateral leads) Interpretation: Normal sinus rhythm, HR-93, no STEMI, WY/QRS/QTC are within normal limits. Discharge Plan Discharge Clinical Impression: Sleep apnea, Mild shortness of breath, Atypical chest pain Patient Disposition: Home, Self-Care Instructions: Sleep Apnea (DC), Shortness of Breath (ED) Additional Instructions: 1. Resume all home medications as prescribed. 2. Call the office of your primary care provider this morning to discuss testing for obstructive sleep apnea. Return to the ER for acute worsening of symptoms. Prescriptions: No Action Proctofoam HC 1-1 % foam 1 appl W[place] BID PRN (Reason: hemorrhoids) Qty: 10 RF: 0 polyethylene glycol 3350 [Miralax] 17 gram powder in packet 17 g PO DAILY Qty: 30 RF: 0 sennosides-docusate sodium [Colace 2-In-1] 8.6-50 mg tablet 1 tab-cap PO BEDTIME Qty: 14 RF: 0 lisinopril 20 mg tablet 20 mg PO DAILY Qty: 30 RF: 0 lisinopril 40 mg tablet 40 mg PO DAILY Qty: 30 RF: 3 amlodipine 5 mg tablet 5 mg PO BID Qty: 60 RF: 3 hydrochlorothiazide 25 mg tablet 25 mg PO DAILY Qty: 30 RF: 3 Citrucel 500 mg tablet 500 mg PO BID Qty: 60 RF: 5 hydrocortisone [Proctozone-HC] 2.5 % cream with perineal applicator 1 appl [place] BID PRN (Reason: hemorrhoids) Qty: 30 RF: 3 Referrals: Gladis Briseno MD [Physician] - 2 days (Re-evaluation of patient for symptomatic obstructive sleep apnea.)
[2021-05-23 05:39] LABS: Alanine Aminotransferase 42 U/L (0-40); Albumin Level 4.4 g/dL (3.5-5.0); Alkaline Phosphatase 69 U/L (39-117); Anion Gap 18 (12-20); Aspartate Amino Transferase 18 U/L (5-37); Bilirubin Total 0.2 mg/dL (0.0-1.0); Blood Urea Nitrogen 17 mg/dL (9-16); Calcium 9.4 mg/dL (8.4-10.2); Carbon Dioxide 23 mmol/L (22-29); Chloride 103 mmol/L (96-108); Creatinine Clr Calc Pharmacy 96.7; Estimated Glomerular Filt Rate > 60; Glucose Random 140 mg/dL (60-115); Lipase 30 U/L (8-78); Potassium 3.9 mmol/L (3.3-5.1); Sodium 140 mmol/L (135-145); Total Protein 7.3 g/dL (6.5-8.0)
[2021-05-23 05:42] LABS: INTERNATIONAL NORM RATIO 0.9 (0.9-1.1); Prothrombin Time 9.7 SEC (9.9-13.0)
[2021-05-23 06:00] VITALS: PULSE 85; RESP 18; O2SAT 98
--- NOTE | 2021-05-23 07:25 | PC.NURSE ---
assumed care of patient at 0700. patient awaiting repeat trop at 0800 and if normal will be discharged per MD's orders. patient given po fluids and informed of plan.
[2021-05-23 08:20] LABS: Troponin-I High Sensitivity 7.1 ng/L (<3.5-35.0)
== END 2021-05-23 08:44 | disposition home or self-care (01) ==
PROVIDERS: Emergency Provider Student in an Organized Health Care Education/Training Program; PCP Nurse Practitioner Family
DX: R07.89 Other chest pain (principal); G47.30 Sleep apnea, unspecified; R06.02 Shortness of breath; Z20.822 Contact with and (suspected) exposure to COVID-19; I10 Essential (primary) hypertension; F17.210 Nicotine dependence, cigarettes, uncomplicated
CPT/HCPCS: 36415; 71045; 80053; 83690; 84484; 85025; 85610; 87635; 93005; 99283; 99284

== ENCOUNTER 2021-06-16 11:37 | Outpatient (REF) | payer OTHER, SELFPAY ==
[2021-06-16 14:19] LABS: Alanine Aminotransferase 44 U/L (0-40); Albumin Level 4.5 g/dL (3.5-5.0); Alkaline Phosphatase 70 U/L (39-117); Anion Gap 14 (12-20); Aspartate Amino Transferase 25 U/L (5-37); Bilirubin Total 0.3 mg/dL (0.0-1.0); Blood Urea Nitrogen 13 mg/dL (9-16); Calcium 9.7 mg/dL (8.4-10.2); Carbon Dioxide 25 mmol/L (22-29); Chloride 102 mmol/L (96-108); Cholesterol 236 mg/dL; Estimated Glomerular Filt Rate > 60; Glucose Fasting 103 mg/dL (60-99); HDL Cholesterol 41 mg/dL; Potassium 4.1 mmol/L (3.3-5.1); Sodium 137 mmol/L (135-145); Total Protein 7.2 g/dL (6.5-8.0); Triglycerides 553 mg/dL
[2021-06-16 14:35] LABS: Estimated Average Glucose 105 mg/dL; Hemoglobin A1c % 5.3 %
[2021-06-16 17:13] LABS: Creatinine Urine 37.22 mg/dL
== END 2021-06-16 11:38 | disposition home or self-care (01) ==
LOC: HO.HMGCLDS 11:37
PROVIDERS: PCP Internal Medicine; Visit Provider Internal Medicine
DX: I10 Essential (primary) hypertension (principal); R73.9 Hyperglycemia, unspecified
CPT/HCPCS: 36415; 80053; 80061; 82043; 83036

== ENCOUNTER → 2021-10-31 13:51 | Outpatient (BNVA) | payer OTHER, SELFPAY | PROVIDERS: PCP Internal Medicine; Referring Provider Internal Medicine; Visit Provider Physician Assistant ==

== ENCOUNTER → 2021-11-15 08:42 | Outpatient (BNVA) | payer OTHER, SELFPAY | PROVIDERS: PCP Internal Medicine; Referring Provider Internal Medicine; Visit Provider Physician Assistant | DX: Z12.11 Encounter for screening for malignant neoplasm of colon (principal); K21.9 Gastro-esophageal reflux disease without esophagitis | CPT/HCPCS: 99212 ==

== ENCOUNTER 2022-05-25 09:26 | Emergency (ER) | payer OTHER, SELFPAY ==
[2022-05-25 09:46] VITALS: BP 175/93; PULSE 106; RESP 20; TEMP 36.9; O2SAT 97; BMI 44.9
--- NOTE | 2022-05-25 09:50 | ECG_ITS ---
Test Reason : chest pressure Blood Pressure : / mmHG Vent. Rate : 101 BPM Atrial Rate : 101 BPM P-R Int : 154 ms QRS Dur : 104 ms QT Int : 340 ms P-R-T Axes : 046 064 101 degrees QTc Int : 440 ms Sinus tachycardia Nonspecific T wave abnormality Minimal voltage criteria for LVH, may be normal variant ( [place] product ) Abnormal ECG When compared with ECG of 23-MAY-2021 04:47, No significant change was found Referred By: Generic ED Physician Electronically Signed By:JEREMY HANKINS
[2022-05-25 12:22] VITALS: BP 143/86; PULSE 92; RESP 16; TEMP 36.2; O2SAT 96
[2022-05-25 12:32] LABS: MANUAL DIFF FLAG NO
[2022-05-25 12:34] LABS: Basophils Percent Auto 0.3 % (0-2); Eosinophils Absolute Auto 0.1 X10*3/uL (0.0-0.4); Eosinophils Percent Auto 0.8 % (0-4); Hematocrit 45.4 % (42.0-52.0); Hemoglobin 15.9 g/dl (14.0-18.0); Imm Gran Abs Auto 0.13 X10*3/uL (0.00-0.03); Imm Gran Pct Auto 1.1 % (0.0-0.4); Lymphocytes Absolute Auto 2.5 X10*3/uL (1.2-4.9); Lymphocytes Percent Auto 20.5 % (20-40); Mean Corpuscular Hemoglobin 30.8 pg (27.0-33.0); Monocytes Absolute Auto 0.7 X10*3/uL (0.1-1.2); Monocytes Percent Auto 6.2 % (2-11); Neutrophils Absolute Auto 8.5 x10*3/uL (2.0-8.3); Neutrophils Percent Auto 71.1 % (45-73); Platelet Count 264 X10*3/uL (160-400); Red Blood Count 5.16 X10*6/uL (4.60-5.80); Red Cell Distribution Width 12.2 % (11.0-16.0)
[2022-05-25 12:45] VITALS: BP 143/86; PULSE 73; RESP 13; TEMP 36.4; O2SAT 96
[2022-05-25 12:55] LABS: Anion Gap 18 (12-20); Blood Urea Nitrogen 9 mg/dL (9-16); Calcium 9.5 mg/dL (8.4-10.2); Carbon Dioxide 28 mmol/L (22-29); Chloride 98 mmol/L (96-108); Creatinine Clr Calc Pharmacy 110.2; Estimated Glomerular Filt Rate > 60; Glucose Random 116 mg/dL (60-115); Sodium 140 mmol/L (135-145); Troponin-I High Sensitivity 6.8 ng/L (<3.5-35.0)
[2022-05-25] MEDS: Ibuprofen 800 MG TABLET PO (13:52)
--- NOTE | 2022-05-25 13:59 | ED_ITS ---
HPI - General Adult General Chief complaint: General Medical Stated complaint: High Blood Pressure Time Seen by Provider: 05/25/22 13:29 Source: patient Mode of arrival: ambulatory Limitations: no limitations History of Present Illness HPI narrative: 51-year-old male history high blood pressure brought to ED for evaluation of elevated blood pressure. Patient states he was at the dentist and he had dental pain and his blood pressure was systolic 180 the dentist did not want to touch him and referred him to the ER for evaluation of elevated blood pressure. Patient states no chest pain, shortness of breath, dizziness, nausea, vomiting, slurred speech, facial droop, loss of vision, or paralysis of extremities. Patient denies headache. Patient states frontal teeth/jaw pain. Patient states he was suppsoed to have frontal lower teeth removed today. Related Data Previous Rx's Medication Instructions Recorded atorvastatin 40 mg tablet (Lipitor) 40 mg PO DAILY #90 tabs 11/10/21 hydrochlorothiazide 25 mg tablet 25 mg PO DAILY #90 tabs 11/10/21 lisinopril 40 mg tablet 40 mg PO DAILY #90 tabs 11/10/21 metoprolol succinate 100 mg 100 mg PO DAILY #90 tabs 11/10/21 tablet,extended release 24 hr bisacodyl 5 mg tablet,delayed 10 mg PO ONCE colonoscopy prep 1 11/15/21 release (Dulcolax (bisacodyl)) day #2 tabs methylcellulose (laxative) 500 mg 500 mg PO BID #60 tabs 11/15/21 tablet (Citrucel) polyethylene glycol 3350 17 238 g PO ONCE 1 day #238 grams 11/15/21 gram/dose oral powder (Miralax) amlodipine 10 mg tablet 10 mg PO DAILY #90 tabs 02/06/22 omeprazole 40 mg capsule,delayed 40 mg PO DAILY #90 caps 02/06/22 release amoxicillin 875 mg-potassium 1 tab PO Q12H 10 days #20 tabs 05/25/22 clavulanate 125 mg tablet naproxen 500 mg tablet 500 mg PO BID PRN pain 10 days #20 05/25/22 tabs Allergies Allergy/AdvReac Type Severity Reaction Status Date / Time acetaminophen [From TYLENOL] Allergy Unknown AGITATION Verified 11/15/21 08:43 codeine [CODEINE] Allergy Unknown CLAUSTROPHO Verified 11/15/21 08:43 CAMILO Review of Systems Review of Systems: elevated blood pressure. dental pain Yes all other systems are reviewed and are negative [facility] Past Medical History Medical History Abdominal pain Annual physical exam Chest pain Diaphoresis High cholesterol HTN (hypertension) Hyperglycemia Hyperlipidemia Rectal bleed Rectal bleeding Sleep apnea Surgical History No significant past surgical history Family History Family History Mother Heart valve disease Cancer Brother Diabetes mellitus Social History Social History Household Members: Spouse Household Members Other:: fiance and kids Housing: Other Housing Other:: halfway/apt Do you presently have visiting nurse or other home services: No Alcohol intake: never Patient Tobacco Use Status: Current everyday Tobacco user Cigarettes Per Day: 6 Years Smoked: 30 e-Cigarette/Vaping Use: Never Used Second Hand Smoke Exposure: No Advance Directives: No Advance Directives Information Provided: No service: No Current occupational status: unemployed Physical Exam ED Vital Signs: Vital Signs - 24 hr 05/25/22 09:46 05/25/22 12:22 05/25/22 12:45 Temperature 98.4 F 97.1 F 97.5 F Pulse Rate 106 H 92 73 Respiratory Rate 20 16 13 Blood Pressure 175/93 H 143/86 H 143/86 H Pulse Oximetry 97 96 96 Oxygen Delivery Method Room Air Room Air Room Air BMI result Body Mass Index 44.9 Const General: cooperative, healthy appearing, comfortable, no acute distress, well developed, alert, awake and Physically active Orientation/consciousness: oriented to time and patient oriented x3 HENMT Other: Negative for any facial swelling, neck swelling, or submandibular swelling. Head: Yes normal to inspection, Yes No palpable skull fracture present, Yes normocephalic, Yes atraumatic and No abrasion Teeth image: 1. Dental decay Eyes General: appearance normal, both eyes and all related structures Neck Neck: Yes normal visual inspection, Yes full ROM, Yes no lymphadenopathy, Yes no meningeal signs, Yes trachea midline and Yes supple Chest Chest palpation & inspection: normal inspection of the chest and normal palpation of entire chest wall Resp Effort & Inspection: normal respiratory effort and able to speak in complete sentences Auscultation: clear to auscultation bilaterally Cardio Jugular venous distension: no JVD Heart sounds: S1 normal heart sound present and S2 normal heart sound present GI Inspection: Yes normal to inspection and No abdominal wall ecchymosis Palpation (GI): Soft to palpation, not firm, nontender, no guarding and not rigid General: No CVA tenderness and Yes no CVA tenderness Back/Spine/Pelvis Back: no CVA tenderness, No CVA tenderness, No ecchymosis and No back tenderness Skin General skin exam: no rashes or lesions noted, elasticity normal and turgor normal Neuro Other: Negative facial droop. Negative slurred speech. Negative pronator drift. All extremities equal strength 5+. [id number] rapid hand movement intact. Negative Romberg. General: oriented to time, patient oriented x3, gait normal, no meningeal signs and CN's II-XI intact bilaterally Cranial nerves: Yes CN's II-XII intact bilaterally Extrem General: Yes normal to inspection and Yes full ROM Psych Appearance: grossly normal, well kempt and not disheveled NIH Stroke Scale Internal: Initial- Upon Arrival Level of Consciousness: Alert Level of Consciousness Questions: Answers both questions correctly Level of Consciousness Commands: Performs both tasks correctly Best Gaze: Normal Visual: No visual loss Facial Palsy: Normal Motor Arm (Right): No drift Motor Arm (Left): No drift Motor Leg (Right): No drift Motor Leg (Left): No drift Limb Ataxia: Absent Sensory: Normal Best Language: No aphasia Dysarthia: Normal Extinction and Inattention: No abnormality Score: 0 Course Course Course Narrative: Patient's blood pressure improved without any hypertensive meds. Rapid medical screening done. EKG negative STEMI. Troponin negative. Kidney function. Negative for any neuro deficit. Patient denies having any headache. Patient having just dental pain. Not suspecting brain bleed or stroke. Blood pressure systolic 143. No need for head CT scan. Second troponin ordered Reevaluation(s) Reevaluation #1: Taking 2nd troponin negative. Patient presently has no headache. Patient has no neuro deficits. Patient is safe for discharge. Dental pain. Time: 16:07 Medical Decision Making MDM Narrative Medical decision making narrative: Dental pain. A blood pressure Lab Data Result diagrams: 05/25/22 12:28 05/25/22 12:28 Labs: Lab Results 05/25/22 05/25/22 05/25/22 Range/Units 12:28 12:28 12:28 WBC 12.0 H (4.8-10.8) X10*3/uL RBC 5.16 (4.60-5.80) X10*6/uL Hgb 15.9 (14.0-18.0) g/dl Hct 45.4 (42.0-52.0) % MCV 88.0 (80.0-98.0) fL MCH 30.8 (27.0-33.0) pg MCHC 35.0 (31.0-36.0) g/dl RDW 12.2 (11.0-16.0) % Plt Count 264 (160-400) X10*3/uL MPV 9.0 L (9.4-12.4) fL Immature Gran % (Auto) 1.1 H (0.0-0.4) % Neut % (Auto) 71.1 (45-73) % Lymph % (Auto) 20.5 (20-40) % Alfalfa % (Auto) 6.2 (2-11) % Eos % (Auto) 0.8 (0-4) % Baso % (Auto) 0.3 (0-2) % Lymph # (Auto) 2.5 (1.2-4.9) X10*3/uL [place]alfa # (Auto) 0.7 (0.1-1.2) X10*3/uL Eos # (Auto) 0.1 (0.0-0.4) X10*3/uL Baso # (Auto) 0.0 (0.0-0.2) X10*3/uL Abs Immat Gran (auto) 0.13 H (0.00-0.03) X10*3/uL Absolute Neuts (auto) 8.5 H (2.0-8.3) x10*3/uL Absolute Nucleated RBC 0.000 (0.0-0.012) X10*3/uL Nucleated RBC % (auto) 0.0 (0.0-0.2) /100WBC Sodium 140 (135-145) mmol/L Potassium 4.0 (3.3-5.1) mmol/L Chloride 98 (96-108) mmol/L Carbon Dioxide 28 (22-29) mmol/L Anion Gap 18 (12-20) BUN 9 (9-16) mg/dL Creatinine 0.93 (0.5-1.4) mg/dL Estim Creat Clear Calc 110.2 Estimated GFR > 60 Random Glucose 116 H (60-115) mg/dL Calcium 9.5 (8.4-10.2) mg/dL Troponin I High Sens 6.8 (<3.5-35.0) ng/L 05/25/22 Range/Units 14:43 WBC (4.8-10.8) X10*3/uL RBC (4.60-5.80) X10*6/uL Hgb (14.0-18.0) g/dl Hct (42.0-52.0) % MCV (80.0-98.0) fL MCH (27.0-33.0) pg MCHC (31.0-36.0) g/dl RDW (11.0-16.0) % Plt Count (160-400) X10*3/uL MPV (9.4-12.4) fL Immature Gran % (Auto) (0.0-0.4) % Neut % (Auto) (45-73) % Lymph % (Auto) (20-40) % [place]alfa % (Auto) (2-11) % Eos % (Auto) (0-4) % Baso % (Auto) (0-2) % Lymph # (Auto) (1.2-4.9) X10*3/uL [place]alfa # (Auto) (0.1-1.2) X10*3/uL Eos # (Auto) (0.0-0.4) X10*3/uL Baso # (Auto) (0.0-0.2) X10*3/uL Abs Immat Gran (auto) (0.00-0.03) X10*3/uL Absolute Neuts (auto) (2.0-8.3) x10*3/uL Absolute Nucleated RBC (0.0-0.012) X10*3/uL Nucleated RBC % (auto) (0.0-0.2) /100WBC Sodium (135-145) mmol/L Potassium (3.3-5.1) mmol/L Chloride (96-108) mmol/L Carbon Dioxide (22-29) mmol/L Anion Gap (12-20) BUN (9-16) mg/dL Creatinine (0.5-1.4) mg/dL Estim Creat Clear Calc Estimated GFR Random Glucose (60-115) mg/dL Calcium (8.4-10.2) mg/dL Troponin I High Sens 5.8 (<3.5-35.0) ng/L ECG Data Interpretation: Sinus tach. Reticular 101 return to 154. QRS 104. QTC 440. negative STEMi Discharge Plan Discharge Clinical Impression: HTN (hypertension), Tooth ache Patient Disposition: Home, Self-Care Instructions: Hypertension (ED), Toothache (ED) Additional Instructions: Your blood work EKG came back normal. Please follow-up with primary care provider. Please follow-up with your dentist. Return to the ED immediately for headache, slurred speech, facial droop, dizziness, blurry vision, loss of vision, chest pain, shortness of breath, paralysis of extremities, neck swelling, jaw swelling, drooling, change in voice, or any other concerning symptoms. Prescriptions: New amoxicillin-pot clavulanate 875-125 mg tablet 1 tab PO Q12H 10 Days Qty: 20 0RF naproxen 500 mg tablet 500 mg PO BID PRN (Reason: pain) 10 Days Qty: 20 0RF No Action amlodipine 10 mg tablet 10 mg PO DAILY Qty: 90 3RF omeprazole 40 mg capsule,delayed release(DR/EC) 40 mg PO DAILY Qty: 90 3RF hydrochlorothiazide 25 mg tablet 25 mg PO DAILY Qty: 90 3RF Rx Instructions: supervising MD Yumiko Brown lisinopril 40 mg tablet 40 mg PO DAILY Qty: 90 3RF metoprolol succinate 100 mg tablet extended release 24 hr 100 mg PO DAILY Qty: 90 2RF atorvastatin [Lipitor] 40 mg tablet 40 mg PO DAILY Qty: 90 3RF Citrucel 500 mg tablet 500 mg PO BID Qty: 60 5RF bisacodyl [Dulcolax (bisacodyl)] 5 mg tablet,delayed release (DR/EC) 10 mg PO ONCE 1 Days Qty: 2 0RF Rx Instructions: Take 2 tablets by mouth at 12:00pm the day before your procedure. polyethylene glycol 3350 [Miralax] 17 gram/dose powder 238 g PO ONCE 1 Days Qty: 238 0RF Rx Instructions: Take as directed by mouth the day before your procedure. Stand Alone Forms: Work/School Release Interventions: ED Discharge Assessment Last Done: 05/25/22 16:34 Discharge Date/Time: 05/25/22 16:35 Print Language: Khmer
[2022-05-25 15:39] LABS: Troponin-I High Sensitivity 5.8 ng/L (<3.5-35.0)
== END 2022-05-25 16:35 | disposition home or self-care (01) ==
PROVIDERS: Physician Assistant; Emergency Provider Emergency Medicine Emergency Medical Services; PCP Internal Medicine
DX: I10 Essential (primary) hypertension (principal); K08.89 Other specified disorders of teeth and supporting structures; E78.5 Hyperlipidemia, unspecified; F17.210 Nicotine dependence, cigarettes, uncomplicated; Z79.02 Long term (current) use of antithrombotics/antiplatelets; Z79.899 Other long term (current) drug therapy
CPT/HCPCS: 36415; 80048; 84484; 85025; 93005; 99284

== ENCOUNTER 2022-08-04 15:16 | Outpatient (REF) | payer OTHER, SELFPAY ==
[2022-08-04 15:30] LABS: MANUAL DIFF FLAG NO
[2022-08-04 15:44] LABS: Basophils Percent Auto 0.3 % (0-2); Eosinophils Absolute Auto 0.1 X10*3/uL (0.0-0.4); Eosinophils Percent Auto 1.2 % (0-4); Hematocrit 42.1 % (42.0-52.0); Hemoglobin 15.3 g/dl (14.0-18.0); Imm Gran Abs Auto 0.06 X10*3/uL (0.00-0.03); Imm Gran Pct Auto 0.8 % (0.0-0.4); Lymphocytes Absolute Auto 1.9 X10*3/uL (1.2-4.9); Lymphocytes Percent Auto 25.8 % (20-40); Mean Corpuscular HGB Conc 36.3 g/dl (31.0-36.0); Mean Corpuscular Hemoglobin 32.6 pg (27.0-33.0); Mean Corpuscular Volume 89.6 fL (80.0-98.0); Mean Platelet Volume 10.2 fL (9.4-12.4); Monocytes Absolute Auto 0.4 X10*3/uL (0.1-1.2); Monocytes Percent Auto 6.1 % (2-11); Neutrophils Absolute Auto 4.7 x10*3/uL (2.0-8.3); Neutrophils Percent Auto 65.8 % (45-73); Platelet Count 255 X10*3/uL (160-400); Red Cell Distribution Width 12.5 % (11.0-16.0); White Blood Count 7.2 X10*3/uL (4.8-10.8)
[2022-08-04 15:54] LABS: Estimated Average Glucose 114 mg/dL; Hemoglobin A1c % 5.6 %
[2022-08-04 16:04] LABS: Cholesterol 216 mg/dL; HDL Cholesterol 40 mg/dL; Triglycerides 405 mg/dL
[2022-08-04 17:06] LABS: Creatinine Urine 96.49 mg/dL; Microalbum/Creatinine Ratio Ur 479.8 ug/mg cr
[2022-08-10 14:02] LABS: PSA, Ultra Sensitive 1.85 ng/mL
== END 2022-08-04 15:17 | disposition home or self-care (01) ==
LOC: HO.LAB 15:16
PROVIDERS: PCP Nurse Practitioner Family; Visit Provider Nurse Practitioner Family
DX: Z00.00 Encounter for general adult medical examination without abnormal findings (principal); Z12.5 Encounter for screening for malignant neoplasm of prostate
CPT/HCPCS: 36415; 80061; 82043; 83036; 84153; 85025

== ENCOUNTER 2022-08-15 13:24 | Outpatient (REF) | payer OTHER, SELFPAY ==
[2022-08-16 09:06] LABS: LDL Cholesterol Direct 123 mg/dL (<100)
== END 2022-08-15 13:25 | disposition home or self-care (01) ==
LOC: HO.LAB 13:24
PROVIDERS: PCP Nurse Practitioner Family; Visit Provider Nurse Practitioner Family
DX: E78.5 Hyperlipidemia, unspecified (principal)
CPT/HCPCS: 36415; 83721

== ENCOUNTER 2022-08-15 22:04 | Emergency (ER) | payer OTHER, SELFPAY ==
--- NOTE | 2022-08-15 | ECG_ITS ---
Test Reason : CHEST PAIN Blood Pressure : / mmHG Vent. Rate : 085 BPM Atrial Rate : 085 BPM P-R Int : 158 ms QRS Dur : 102 ms QT Int : 348 ms P-R-T Axes : 050 074 112 degrees QTc Int : 414 ms Normal sinus rhythm Minimal voltage criteria for LVH, may be normal variant ( [place] product ) T wave abnormality, consider lateral ischemia Abnormal ECG When compared with ECG of 25-MAY-2022 09:50, T wave inversion more evident in Lateral leads Referred By: Generic ED Physician Electronically Signed By:CARLA CHOU MD
--- NOTE | ~2022-08-15 | CT_ITS ---
EXAMINATION: CT CHEST WITHOUT CONTRAST CLINICAL INFORMATION: Cough and chest pain. Right subpleural abnormality noted on same-day chest radiograph. COMPARISON: Chest radiograph from earlier today. TECHNIQUE: Multidetector volumetric CT imaging of the chest was done. Axial MIP volume rendering provided. Sagittal and coronal reformatted images were obtained. This CT examination was performed using dose optimization techniques as appropriate, variously including the following: *Automated exposure control *Adjustment of mA and/or kV according to patient size (this includes techniques or standardized protocols for targeted exams where dose is matched to indication/reason for exam; i.e. extremities or head) *Use of iterative reconstruction technique DLP: 335 mGy-cm FINDINGS: LUNGS: Mild diffuse bronchial wall thickening and subtle mosaic attenuation of lung parenchyma. Subpleural lucencies noted in the lung apices, likely related with early paraseptal emphysema. The central airways are patent. No focal consolidation. A few fissural based nodularities are noted in the right lung measuring 2 mm on image 190 and 4 mm on image 193, series 5. MEDIASTINUM: Normal heart size. No pericardial effusion. Normal appearance of the thyroid gland. A few sub-7 mm short axis mediastinal lymph nodes are noted. No pathologically enlarged mediastinal lymphadenopathy. Evaluation of the hilar structures is limited in the absence of IV contrast. Thoracic aorta is of normal diameter. CORONARY ARTERY CALCIFICATION: Present, mild to moderate. PLEURA: The abnormality described on the recent chest radiograph, corresponds to subpleural fatty proliferation. No suspicious pleural-based masses. No pleural effusion or pneumothorax. AXILLA: No pathologically enlarged axillary lymph nodes. UPPER ABDOMEN: Hepatic steatosis. Nonspecific bulkiness of the adrenal glands, more noticeable in the medial left adrenal gland, stable since 10/20/2020. OSSEOUS STRUCTURES: Thoracic spondylosis. No acute or aggressive appearing osseous abnormalities. CT/CT chest wo IV con IMPRESSION: 1. The abnormality described on the recent chest radiograph corresponds to subpleural fatty proliferation. No suspicious pleural-based masses. 2. Mild diffuse bronchial wall thickening and mosaic attenuation of the lung parenchyma suggesting some degree of air trapping in the setting of asthma, bronchitis or reactive airways disease. 3. No focal consolidation. 4. Hepatic steatosis. 5. A few fissural-based nodularities in the right lung measuring up to 4, likely representing lymph nodes. Assuming patient has no history of malignancy, recommend follow-up per Fleischner Society recommendations. According to the UPDATED 2017 Fleischner Society recommendations, the advised followup imaging for solid nodules < 6 mm is: LOW RISK PATIENT: No routine follow up. HIGH RISK PATIENT: Optional CT at 12 months.
--- NOTE | ~2022-08-15 | XR_ITS ---
EXAMINATION: XR CHEST CLINICAL INFORMATION: Chest pain. COMPARISON: Chest radiograph dated from 05/23/2021. TECHNIQUE: Frontal view of the chest was obtained. FINDINGS: Normal appearance of the cardiomediastinal silhouette. New nonspecific subpleural thickening in the inferior right lateral lower lobe. No focal consolidation. No significant pleural effusion or pneumothorax. No displaced osseous fractures. XR/XR chest 1V IMPRESSION: New nonspecific subpleural thickening in the inferior right lateral lower lobe. Recommend correlation with point tenderness and if clinically deemed appropriate further evaluation with a chest CT.
[2022-08-15 22:17] VITALS: BP 138/82; PULSE 91; RESP 18; TEMP 36.6; O2SAT 99; BMI 44.8
[2022-08-15 22:41] LABS: MANUAL DIFF FLAG NO
[2022-08-15 22:42] LABS: Basophils Percent Auto 0.2 % (0-2); Eosinophils Percent Auto 0.6 % (0-4); Hematocrit 45.6 % (42.0-52.0); Hemoglobin 16.2 g/dl (14.0-18.0); Imm Gran Abs Auto 0.01 X10*3/uL (0.00-0.03); Imm Gran Pct Auto 0.2 % (0.0-0.4); Mean Corpuscular HGB Conc 35.5 g/dl (31.0-36.0); Mean Corpuscular Hemoglobin 31.7 pg (27.0-33.0); Mean Corpuscular Volume 89.2 fL (80.0-98.0); Mean Platelet Volume 10.2 fL (9.4-12.4); Monocytes Absolute Auto 0.4 X10*3/uL (0.1-1.2); Monocytes Percent Auto 9.2 % (2-11); Neutrophils Absolute Auto 2.3 x10*3/uL (2.0-8.3); Neutrophils Percent Auto 48.8 % (45-73); Platelet Count 217 X10*3/uL (160-400); Red Blood Count 5.11 X10*6/uL (4.60-5.80); Red Cell Distribution Width 12.3 % (11.0-16.0); White Blood Count 4.8 X10*3/uL (4.8-10.8)
[2022-08-15 23:02] LABS: Alanine Aminotransferase 46 U/L (0-40); Albumin Level 4.5 g/dL (3.5-5.0); Alkaline Phosphatase 72 U/L (39-117); Anion Gap 19 (12-20); Aspartate Amino Transferase 26 U/L (5-37); Bilirubin Total 0.3 mg/dL (0.0-1.0); Blood Urea Nitrogen 17 mg/dL (9-16); Carbon Dioxide 24 mmol/L (22-29); Chloride 101 mmol/L (96-108); Creatinine Clr Calc Pharmacy 100.2; Estimated Glomerular Filt Rate > 60; Glucose Random 144 mg/dL (60-115); Potassium 3.7 mmol/L (3.3-5.1); Sodium 140 mmol/L (135-145); Total Protein 7.7 g/dL (6.5-8.0)
[2022-08-15 23:06] LABS: Troponin-I High Sensitivity 20.8 ng/L (<3.5-35.0)
[2022-08-15 23:20] VITALS: BP 133/81; PULSE 92; RESP 18; TEMP 37.2; O2SAT 96
--- NOTE | 2022-08-15 23:53 | ED.CHESTPAIN ---
HPI - Chest Pain General Chief Complaint: Chest Pain Stated Complaint: Chest pain Time Seen by Provider: 08/15/22 23:32 Source: patient Mode of arrival: ambulatory Limitations: no limitations History of Present Illness HPI narrative: 52-year-old male with history of hypertension hyperlipidemia presents with intermittent chest pain since Sunday. Patient reports pain occurs at rest. Feels like a pressure that lasts for several minutes and then resolved. Today he had the episode that was up to an hour in length but he relates this to having an argument with his daughter. Denies any associated diaphoresis, vomiting, shortness of breath with his chest pain. It is not exertional. He denies any leg swelling or leg pain. He does have a cough which he tells me is chronic. No fevers or chills. Patient reports he has seen cardiology in the past during hospital admission in 2019 which was negative Related Data Previous Rx's Medication Instructions Recorded atorvastatin 40 mg tablet (Lipitor) 40 mg PO DAILY #90 tabs 11/10/21 lisinopril 40 mg tablet 40 mg PO DAILY #90 tabs 11/10/21 metoprolol succinate 100 mg 100 mg PO DAILY #90 tabs 11/10/21 tablet,extended release 24 hr bisacodyl 5 mg tablet,delayed 10 mg PO ONCE colonoscopy prep 1 11/15/21 release (Dulcolax (bisacodyl)) day #2 tabs methylcellulose (laxative) 500 mg 500 mg PO BID #60 tabs 11/15/21 tablet (Citrucel) amlodipine 10 mg tablet 10 mg PO DAILY #90 tabs 02/06/22 omeprazole 40 mg capsule,delayed 40 mg PO DAILY #90 caps 02/06/22 release hydrochlorothiazide 50 mg tablet 50 mg PO DAILY 90 days #90 tabs 08/04/22 fenofibrate 160 mg tablet 160 mg PO DAILY 30 days #30 tabs 08/07/22 Allergies Allergy/AdvReac Type Severity Reaction Status Date / Time acetaminophen [From TYLENOL] Allergy Unknown AGITATION Verified 08/04/22 15:02 codeine [CODEINE] Allergy Unknown CLAUSTROPHO Verified 08/04/22 15:02 CAMILO Review of Systems Review of Systems: Yes all other systems are reviewed and are negative Constitutional: Constitutional: Reports no additional constitutional complaints, Denies body ache(s), Denies chills, Denies fever(s), Denies headache(s) and Denies weakness Eyes: Eyes: Reports no additional eye complaints and Denies change in vision ENT: Reports system reviewed and no additional complaints, except as documented, Denies dizziness, Denies headache(s), Denies nasal congestion, Denies nasal discharge and Denies neck pain Cardiovascular: Cardiovascular: Reports no additional cardiovascular complaints, Reports chest pain, Denies leg edema and Denies dyspnea Respiratory: Respiratory: Reports no additional respiratory complaints, Reports cough and Denies dyspnea Gastrointestinal: Gastrointestinal: Reports no additional gastrointestinal complaints, Denies abdominal pain, Denies diarrhea, Denies nausea and Denies vomiting Genitourinary: Genitourinary: Denies urinary incontinence Musculoskeletal: Musculoskeletal: Reports no additional musculoskeletal complaints, Denies back pain, Denies arthralgias, Denies joint swelling, Denies neck pain, Denies numbness and Denies tingling Integumentary/Breasts: Skin/Breast: Reports system reviewed and no additional complaints, except as docu and Denies rash Neurologic: Reports system reviewed and no additional complaints, except as documented, Denies Abnormal speech present, Denies dizziness, Denies headache(s), Denies numbness, Denies tingling and Denies weakness PMFSH Past Medical History Attestation statement: The following information was validated with the patient. Source: old records reviewed and nursing notes reviewed Medical History Abdominal pain Annual physical exam Chest pain Diaphoresis High cholesterol HTN (hypertension) Hyperglycemia Hyperlipidemia Rectal bleed Rectal bleeding Sleep apnea Surgical History No significant past surgical history Family History Family History Mother Heart valve disease Cancer Brother Diabetes mellitus Social History Social History Household Members: Spouse Household Members Other:: fiance and kids Housing: Other Housing Other:: jail/apt Do you presently have visiting nurse or other home services: No Alcohol intake: never Patient Tobacco Use Status: Current everyday Tobacco user Cigarettes Per Day: 6 Years Smoked: 30 e-Cigarette/Vaping Use: Never Used Second Hand Smoke Exposure: No Advance Directives: No service: No Current occupational status: unemployed Current occupational exposures/hazards: No Cognitive needs: No Hearing needs: No Vision needs: Yes Physical Exam Vital Signs: Vital Signs: Last Vital Signs Temp 98.9 F 08/15/22 23:20 Pulse 92 08/15/22 23:20 Resp 18 08/15/22 23:20 BP 133/81 08/15/22 23:20 Pulse Ox 96 08/15/22 23:20 O2 Del Method 08/15/22 22:17 BMI result Body Mass Index 44.8 Const: General: cooperative, healthy appearing, comfortable and no acute distress Orientation/consciousness: patient oriented x3 Limitations: no limitations HEENT: Head: Yes normal to inspection Ears: hearing grossly normal bilaterally General nose exam: Normal external nose present Face and sinus: Yes normal facial exam Mouth: Normal oral and palatal mucosa present Throat: Yes posterior oropharynx normal Eyes: General: appearance normal, both eyes and all related structures Pupils: Equal, round and reactive pupils present Neck: Neck: Yes normal visual inspection Chest: Chest palpation & inspection: normal inspection of the chest Resp: Effort & Inspection: normal respiratory effort Auscultation: clear to auscultation bilaterally Cardio: Rate: regular rate Rhythm: regular rhythm Peripheral pulses: Peripheral pulses 2+ throughout GI: Inspection: Yes normal to inspection Palpation (GI): Soft to palpation and nontender Auscultation: normal bowel sounds Back/Spine/Pelvis: Thoracic/Lumbar Spine: thoracic and lumbar spine normal to inspection Skin: General skin exam: no rashes or lesions noted Neuro: General: patient oriented x3, no focal motor deficits and normal sensation to monofilament Cranial nerves: Yes Equal, round and reactive pupils present Cognition (Neuro): normal cognition Speech: No Abnormal speech present Gait exam (Neuro): Normal gait present Motor exam (neuro): 5/5 motor strength present throughout Extrem: General: Yes normal to inspection, Yes no pedal edema and Yes no calf tenderness Course Course Course Narrative: Initial troponin is 20.8. EKG does not show any new ischemic changes when compared to previous EKG. Will trend troponin. D-dimer is negative. No hypoxia, tachypnea, tachycardia, clinical findings to suggest PE. Less likely aortic dissection with gradual, intermittent episodes and no radiation to back or description of tearing or ripping sensation. Chest x-ray does show nonspecific subpleural thickening in the inferior right lateral lobe. Recommend CT chest so will obtain Reevaluation(s) Reevaluation #1: 0100-sIGN OUT TO [facility] pending CT chest, repeat troponin MDM - Chest Pain MDM Narrative Medical decision making narrative: 52-year-old male here with intermittent chest pain since yesterday which occurs at rest with no associated diaphoresis, vomiting or shortness of breath. Also chronic cough. Will check labs, EKG, chest x-ray. Seems atypical for ACS but patient does have risk factors so will consider. Also consider PE, pneumonia, aortic dissection Medical Records Data Attestation: I reviewed the patient's medical records. Lab Data Attestation: I reviewed the patient's lab results. Result diagrams: 08/15/22 22:36 08/15/22 22:36 Labs: Lab Results 08/15/22 08/15/22 08/15/22 Range/Units 22:36 22:36 22:36 WBC 4.8 (4.8-10.8) X10*3/uL RBC 5.11 (4.60-5.80) X10*6/uL Hgb 16.2 (14.0-18.0) g/dl Hct 45.6 (42.0-52.0) % MCV 89.2 (80.0-98.0) fL MCH 31.7 (27.0-33.0) pg MCHC 35.5 (31.0-36.0) g/dl RDW 12.3 (11.0-16.0) % Plt Count 217 (160-400) X10*3/uL MPV 10.2 (9.4-12.4) fL Immature Gran % (Auto) 0.2 (0.0-0.4) % Neut % (Auto) 48.8 (45-73) % Lymph % (Auto) 41.0 H (20-40) % [place] % (Auto) 9.2 (2-11) % Eos % (Auto) 0.6 (0-4) % Baso % (Auto) 0.2 (0-2) % Lymph # (Auto) 2.0 (1.2-4.9) X10*3/uL [place] # (Auto) 0.4 (0.1-1.2) X10*3/uL Eos # (Auto) 0.0 (0.0-0.4) X10*3/uL Baso # (Auto) 0.0 (0.0-0.2) X10*3/uL Abs Immat Gran (auto) 0.01 (0.00-0.03) X10*3/uL Absolute Neuts (auto) 2.3 (2.0-8.3) x10*3/uL Absolute Nucleated RBC 0.000 (0.0-0.012) X10*3/uL Nucleated RBC % (auto) 0.0 (0.0-0.2) /100WBC PT (10.0-13.1) SEC INR (0.9-1.1) D-Dimer High Sensitivty NG/ML Sodium 140 (135-145) mmol/L Potassium 3.7 (3.3-5.1) mmol/L Chloride 101 (96-108) mmol/L Carbon Dioxide 24 (22-29) mmol/L Anion Gap 19 (12-20) BUN 17 H D (9-16) mg/dL Creatinine 1.01 (0.5-1.4) mg/dL Estim Creat Clear Calc 100.2 Estimated GFR > 60 Random Glucose 144 H (60-115) mg/dL Calcium 9.0 (8.4-10.2) mg/dL Total Bilirubin 0.3 (0.0-1.0) mg/dL AST 26 (5-37) U/L ALT 46 H (0-40) U/L Alkaline Phosphatase 72 (39-117) U/L Troponin I High Sens 20.8 (<3.5-35.0) ng/L Total Protein 7.7 (6.5-8.0) g/dL Albumin 4.5 (3.5-5.0) g/dL 08/15/22 Range/Units 23:58 WBC (4.8-10.8) X10*3/uL RBC (4.60-5.80) X10*6/uL Hgb (14.0-18.0) g/dl Hct (42.0-52.0) % MCV (80.0-98.0) fL MCH (27.0-33.0) pg MCHC (31.0-36.0) g/dl RDW (11.0-16.0) % Plt Count (160-400) X10*3/uL MPV (9.4-12.4) fL Immature Gran % (Auto) (0.0-0.4) % Neut % (Auto) (45-73) % Lymph % (Auto) (20-40) % [place] % (Auto) (2-11) % Eos % (Auto) (0-4) % Baso % (Auto) (0-2) % Lymph # (Auto) (1.2-4.9) X10*3/uL [place] # (Auto) (0.1-1.2) X10*3/uL Eos # (Auto) (0.0-0.4) X10*3/uL Baso # (Auto) (0.0-0.2) X10*3/uL Abs Immat Gran (auto) (0.00-0.03) X10*3/uL Absolute Neuts (auto) (2.0-8.3) x10*3/uL Absolute Nucleated RBC (0.0-0.012) X10*3/uL Nucleated RBC % (auto) (0.0-0.2) /100WBC PT 10.7 (10.0-13.1) SEC INR 0.9 (0.9-1.1) D-Dimer High Sensitivty < 150 NG/ML Sodium (135-145) mmol/L Potassium (3.3-5.1) mmol/L Chloride (96-108) mmol/L Carbon Dioxide (22-29) mmol/L Anion Gap (12-20) BUN (9-16) mg/dL Creatinine (0.5-1.4) mg/dL Estim Creat Clear Calc Estimated GFR Random Glucose (60-115) mg/dL Calcium (8.4-10.2) mg/dL Total Bilirubin (0.0-1.0) mg/dL AST (5-37) U/L ALT (0-40) U/L Alkaline Phosphatase (39-117) U/L Troponin I High Sens (<3.5-35.0) ng/L Total Protein (6.5-8.0) g/dL Albumin (3.5-5.0) g/dL Imaging Data Chest x-ray: Attestation: I personally reviewed and interpreted this imaging study as follows: Radiologist's impression: [id number] [place] [id number] XRay Report Signed Patient: River Snow MR#: [id number] : 1970 Acct:[id number] Age/Sex: 52 / M ADM Date: 08/15/22 Loc: HO.ED Attending Dr: Ordering Physician: Generic ED Physician Date of Service: 08/15/22 Procedure(s): XR chest 1V Accession Number(s): [id number] cc: Generic ED Physician~ EXAMINATION: XR CHEST CLINICAL INFORMATION: Chest pain. COMPARISON: Chest radiograph dated from 05/23/2021. TECHNIQUE: Frontal view of the chest was obtained. FINDINGS: Normal appearance of the cardiomediastinal silhouette. New nonspecific subpleural thickening in the inferior right lateral lower lobe. No focal consolidation. No significant pleural effusion or pneumothorax. No displaced osseous fractures. XR/XR chest 1V IMPRESSION: New nonspecific subpleural thickening in the inferior right lateral lower lobe. Recommend correlation with point tenderness and if clinically deemed appropriate further evaluation with a chest CT. ECG Data ECG #1: Attestation: I personally reviewed and interpreted this ECG as follows: ECG interpretation date: 08/16/22 ECG interpretation time: 22:22 Interpretation: Normal sinus rhythm with rate 85, normal DC, normal QRS, normal QT, T-wave inversions in leads V5 and V6 which appear unchanged when compared to previous Discharge Plan Discharge Clinical Impression: Chest pain Patient Disposition: Still a Patient Instructions: Chest Pain (ED) Additional Instructions: Your EKG, blood work and x-ray are reassuring. Please follow-up with your primary care doctor's you may need additional testing done. Return for any worsening signs or symptoms Prescriptions: No Action amlodipine 10 mg tablet 10 mg PO DAILY Qty: 90 3RF omeprazole 40 mg capsule,delayed release(DR/EC) 40 mg PO DAILY Qty: 90 3RF fenofibrate 160 mg tablet 160 mg PO DAILY 30 Days Qty: 30 0RF lisinopril 40 mg tablet 40 mg PO DAILY Qty: 90 3RF metoprolol succinate 100 mg tablet extended release 24 hr 100 mg PO DAILY Qty: 90 2RF atorvastatin [Lipitor] 40 mg tablet 40 mg PO DAILY Qty: 90 3RF hydrochlorothiazide 50 mg tablet 50 mg PO DAILY 90 Days Qty: 90 3RF Citrucel 500 mg tablet 500 mg PO BID Qty: 60 5RF bisacodyl [Dulcolax (bisacodyl)] 5 mg tablet,delayed release (DR/EC) 10 mg PO ONCE 1 Days Qty: 2 0RF Rx Instructions: Take 2 tablets by mouth at 12:00pm the day before your procedure.
[2022-08-16 00:15] LABS: INTERNATIONAL NORM RATIO 0.9 (0.9-1.1); Prothrombin Time 10.7 SEC (10.0-13.1)
[2022-08-16 00:20] LABS: D Dimer High Sensitivity < 150 NG/ML
[2022-08-16 01:20] LABS: Troponin-I High Sensitivity 24.7 ng/L (<3.5-35.0)
== END 2022-08-16 02:28 | disposition home or self-care (01) ==
PROVIDERS: Nurse Practitioner Family; Emergency Provider Internal Medicine; PCP Nurse Practitioner Family
DX: R07.9 Chest pain, unspecified (principal); I10 Essential (primary) hypertension; E78.5 Hyperlipidemia, unspecified; Z79.02 Long term (current) use of antithrombotics/antiplatelets; Z79.899 Other long term (current) drug therapy; F17.210 Nicotine dependence, cigarettes, uncomplicated
CPT/HCPCS: 36415; 71045; 71250; 80053; 84484; 85025; 85379; 85610; 93005; 99283; 99284

== ENCOUNTER 2022-09-08 07:26 | Outpatient (REF) | payer OTHER, SELFPAY ==
--- NOTE | ~2022-09-08 | XR_ITS ---
EXAMINATION: AP UPRIGHT OF BOTH KNEES. LATERAL AND PATELLA VIEW OF LEFT KNEE CLINICAL INFORMATION: Pain in the right and left knee COMPARISON: None TECHNIQUE: AP upright both knees. Lateral and patella view of left knee FINDINGS: Left knee: The bones joints and soft tissues are normal. No effusion. Right knee Limited: Minimal marginal osteophytes about the lateral compartment without joint space narrowing. Medial compartment normal. Surrounding bone and soft tissues unremarkable. Patellofemoral joint not evaluated. XR/XR knee standing BI IMPRESSION: LEFT KNEE: Normal. RIGHT KNEE Limited: Minimal osteoarthritis.
--- NOTE | ~2022-09-08 | XR_ITS ---
EXAMINATION: AP UPRIGHT OF BOTH KNEES. LATERAL AND PATELLA VIEW OF LEFT KNEE CLINICAL INFORMATION: Pain in the right and left knee COMPARISON: None TECHNIQUE: AP upright both knees. Lateral and patella view of left knee FINDINGS: Left knee: The bones joints and soft tissues are normal. No effusion. Right knee Limited: Minimal marginal osteophytes about the lateral compartment without joint space narrowing. Medial compartment normal. Surrounding bone and soft tissues unremarkable. Patellofemoral joint not evaluated. XR/XR knee LT 2V IMPRESSION: LEFT KNEE: Normal. RIGHT KNEE Limited: Minimal osteoarthritis.
== END 2022-09-08 07:27 | disposition home or self-care (01) ==
LOC: HO.HOSX 07:26
PROVIDERS: Visit Provider Physician Assistant
DX: M17.12 Unilateral primary osteoarthritis, left knee (principal)
CPT/HCPCS: 73560; 73565; 99202

== ENCOUNTER → 2023-01-10 13:06 | Outpatient (BNVA) | payer OTHER, SELFPAY | PROVIDERS: PCP Nurse Practitioner Family; Visit Provider Physician Assistant | DX: M17.12 Unilateral primary osteoarthritis, left knee (principal); M25.562 Pain in left knee; F17.200 Nicotine dependence, unspecified, uncomplicated | CPT/HCPCS: 20610; 99212; J1020 ==

== ENCOUNTER 2023-04-07 15:11 | Emergency (ER) | payer OTHER, SELFPAY ==
[2023-04-07 15:17] VITALS: BP 139/71; PULSE 74; RESP 20; TEMP 35.6; O2SAT 96; BMI 43.8
--- NOTE | 2023-04-07 15:22 | ED_ITS ---
HPI - General Adult General Chief complaint: Eye Problems Stated complaint: eye pain Source: patient Mode of arrival: ambulatory Limitations: no limitations History of Present Illness HPI narrative: Patient is a 52 year old assigned male at with a history of HTN presenting to the emergency department today with right eye swelling. Patient states that he woke up this morning with right eye swelling and discharge that has gotten worse throughout the day. Patient denies any dizziness, lightheadedness, abdominal pain, nausea, vomiting, fever, chills, blurry vision, double vision, loss of vision, chest pain, difficulty breathing, shortness of breath, back pain, night sweats, pain with urination, increased urinary frequency, increased urinary urgency, blood in his urine or stool, syncope or a near syncopal episode, recent trauma or falls, bowel incontinence, bladder incontinence, bowel retention, bladder retention, or any other complaints at this time. Onset (ago): hour(s) Location: eyes and right Radiation: non-radiation Severity: mild Severity scale (1-10): 3 Relieving factors: none Exacerbating factors: none Associated symptoms: denies other symptoms Treatments prior to arrival: none Related Data Previous Rx's Medication Instructions Recorded bisacodyl 5 mg tablet,delayed 10 mg PO ONCE colonoscopy prep 1 11/15/21 release (Dulcolax (bisacodyl)) day #2 tabs methylcellulose (laxative) 500 mg 500 mg PO BID #60 tabs 11/15/21 tablet (Citrucel) amlodipine 10 mg tablet 10 mg PO DAILY #90 tabs 02/06/22 hydrochlorothiazide 50 mg tablet 50 mg PO DAILY 90 days #90 tabs 08/04/22 blood pressure test kit-large (BPM #1 ea 08/18/22 2 Advanced BP Monitor kit) celecoxib 200 mg capsule (Celebrex) 200 mg PO BID 30 days #60 caps 09/08/22 fenofibrate 160 mg tablet 160 mg PO DAILY 30 days #30 tabs 11/02/22 lisinopril 40 mg tablet 40 mg PO DAILY #90 tabs 12/20/22 atorvastatin 40 mg tablet (Lipitor) 40 mg PO DAILY #90 tabs 01/05/23 metoprolol succinate 100 mg 100 mg PO DAILY #90 tabs 01/05/23 tablet,extended release 24 hr omeprazole 40 mg capsule,delayed 40 mg PO DAILY #90 caps 03/29/23 release Allergies Allergy/AdvReac Type Severity Reaction Status Date / Time acetaminophen [From TYLENOL] Allergy Unknown AGITATION Verified 01/10/23 13:17 codeine [CODEINE] Allergy Unknown CLAUSTROPHO Verified 01/10/23 13:17 CAMILO Review of Systems Constitutional: Constitutional: Reports no additional constitutional complaints, Denies chills, Denies fever(s) and Denies night sweats Eyes: Eyes: Reports no additional eye complaints, Denies blurry vision, Denies change in vision, Denies diplopia, Denies loss of vision and Denies eye pain Comments: right eye swelling, right eye discharge ENT: Denies dizziness Cardiovascular: Cardiovascular: Reports no additional cardiovascular complaints, Denies chest pain, Denies lightheadedness, Denies Loss of Consciousness and Denies dyspnea Respiratory: Respiratory: Reports no additional respiratory complaints and Denies dyspnea Gastrointestinal: Gastrointestinal: Reports no additional gastrointestinal complaints, Denies abdominal pain, Denies melena, Denies hematochezia, Denies change in bowel habits and Denies change in stool character Genitourinary: Genitourinary: Reports no additional male genitourinary complaints, Denies hematuria, Denies oliguria, Denies difficulty urinating, Denies dysuria, Denies urinary frequency, Denies urinary hesitancy, Denies urinary incontinence and Denies urinary urgency Musculoskeletal: Musculoskeletal: Reports no additional musculoskeletal complaints, Denies numbness and Denies tingling Neurologic: Denies dizziness, Denies loss of vision, Denies numbness and Denies tingling Psychiatric: Psychiatric: Reports no additional psychiatric complaints Endocrine: Endocrine: Reports no additional endocrine complaints Hematologic/Lymphatic: Hematologic/Lymphatic: Reports no additional hematologic/lymphatic complaints Allergic/Immunologic: Allergic/Immunologic: Reports no additional allergic/immunologic complaints [facility] Past Medical History Attestation statement: The following information was validated with the patient. Source: old records reviewed and nursing notes reviewed Medical History Abdominal pain Annual physical exam Chest pain Diaphoresis High cholesterol HTN (hypertension) Hyperglycemia Hyperlipidemia Rectal bleed Rectal bleeding Sleep apnea Surgical History No significant past surgical history Family History Family History Mother Heart valve disease Cancer Brother Diabetes mellitus Social History Social History Household Members: Spouse Household Members Other:: fiance and kids Housing: Other Housing Other:: jail/apt Do you presently have visiting nurse or other home services: No Alcohol intake: never Patient Tobacco Use Status: Current everyday Tobacco user Cigarettes Per Day: 6 Years Smoked: 30 e-Cigarette/Vaping Use: Never Used Second Hand Smoke Exposure: No Advance Directives: No Advance Directives Information Provided: No service: No Current occupational status: unemployed Current occupational exposures/hazards: No Cognitive needs: No Hearing needs: No Vision needs: Yes Physical Exam ED Vital Signs: Vital Signs - 24 hr 04/07/23 15:17 Temperature 96.0 F L Pulse Rate 74 Respiratory Rate 20 Blood Pressure 139/71 Pulse Oximetry 96 Oxygen Delivery Method Room Air BMI result Body Mass Index 43.8 Const General: cooperative, no acute distress, alert and awake Nutritional Appearance: well nourished Orientation/consciousness: patient oriented x3 Limitations: no limitations HENMT Head: Yes normal to inspection and Yes atraumatic Ears: hearing grossly normal bilaterally and external ears normal General nose exam: Normal external nose present, no nasal discharge noted and no epistaxis Face and sinus: Yes normal facial exam, No abrasion and No laceration Mouth: Normal oral and palatal mucosa present, no drooling and no muffled voice Eyes Other: minimal right eye swelling with minimal yellow-rio discharge from the right eye Conjunctivae: conjunctivae normal Pupils: Equal, round and reactive pupils present EOM: EOMs intact bilaterally Neck Neck: Yes normal visual inspection, Yes full ROM and Yes no lymphadenopathy Chest Chest palpation & inspection: normal inspection of the chest Resp Effort & Inspection: normal respiratory effort and able to speak in complete sentences GI Inspection: Yes normal to inspection Neuro General: patient oriented x3 and moves all extremities Cranial nerves: Yes Equal, round and reactive pupils present Cognition (Neuro): normal cognition Motor exam (neuro): 5/5 motor strength present throughout Sensory Exam: Normal double simultaneous stimulation for sensation Coordination: [id number] test normal Extrem General: Yes normal to inspection, Yes full ROM and Yes capillary refill normal Psych Appearance: grossly normal Mental Status: mental status grossly normal Affect: normal affect Attitude: cooperative Thought process: Normal thought process present Thought content: Normal thought content present Insight: Good insight present (Psych) Course Course Course Narrative: RME performed by Ritu Cano PA-C. Patient is a 52 year old assigned male at presenting to the emergency department with right eye pain. Patient states that it has gotten progressively worse throughout the day and he feels as though something is in it. Patient placed back in the waiting room pending room availability. Medical Decision Making Medical Decision Making MDM Narrative: Patient is a 52 year old assigned male at with a history of HTN presenting to the emergency department today with right eye swelling / discharge. Patient's physical exam was as noted in the physical exam portion of this chart. Patient eloped from the department before myself or any other emergency department provider could explain his physical exam findings or provide any treatment. Differential Diagnosis Differential Diagnoses: The differential diagnosis associated with the presentation includes Allergic conjunctivitis Bacterial conjunctivitis Right eye irritation Right eye swelling Discharge Plan Discharge Clinical Impression: Eye swelling Patient Disposition: Elopement Prescriptions: No Action amlodipine 10 mg tablet 10 mg PO DAILY Qty: 90 3RF fenofibrate 160 mg tablet 160 mg PO DAILY 30 Days Qty: 30 0RF lisinopril 40 mg tablet 40 mg PO DAILY Qty: 90 3RF metoprolol succinate 100 mg tablet extended release 24 hr 100 mg PO DAILY Qty: 90 1RF Rx Instructions: Schedule next PCP appt for more refills atorvastatin [Lipitor] 40 mg tablet 40 mg PO DAILY Qty: 90 1RF Rx Instructions: Schedule next PCP appt for more refills omeprazole 40 mg capsule,delayed release(DR/EC) 40 mg PO DAILY Qty: 90 0RF Rx Instructions: Schedule PCP appt for future refills (DME) blood pressure test kit-large [BPM 2 Advanced BP Monitor] Kit See Rx Instructions .Route Qty: 1 0RF Rx Instructions: As directed hydrochlorothiazide 50 mg tablet 50 mg PO DAILY 90 Days Qty: 90 3RF Citrucel 500 mg tablet 500 mg PO BID Qty: 60 5RF bisacodyl [Dulcolax (bisacodyl)] 5 mg tablet,delayed release (DR/EC) 10 mg PO ONCE 1 Days Qty: 2 0RF Rx Instructions: Take 2 tablets by mouth at 12:00pm the day before your procedure. celecoxib [Celebrex] 200 mg capsule 200 mg PO BID 30 Days Qty: 60 3RF Discharge Date/Time: 04/07/23 18:08
== END 2023-04-07 18:08 | disposition left against medical advice (07) ==
PROVIDERS: Emergency Provider Emergency Medicine
DX: H01.9 Unspecified inflammation of eyelid (principal); H57.11 Ocular pain, right eye
CPT/HCPCS: 99281

== ENCOUNTER → 2023-06-06 11:43 | Outpatient (REF) | payer OTHER, SELFPAY ==
--- NOTE | 2023-06-06 11:47 | HM_ITS ---
* Total monitoring time 3 days. * Underlying rhythm is sinus. Average ventricular rate 83/Min. Range 45 to 145/Min. About 18% the time, rate greater than 100/Min. * Rare supraventricular ectopy with minimal burden * Rare ventricular ectopy with minimal burden. * One short run of 4 beats, could be ventricular or aberrantly conducted supraventricular rhythm. * No significant pauses or AV blocks. * No patient markers or events in diary. MTDD
--- NOTE | 2023-06-06 11:47 | CA_ITS ---
Transthoracic Echocardiogram Patient (Last, First, Middle): River Snow, Gender: Male Date of : 1970 Age: 52 Procedure Date: 06/06/2023 Procedure Type: Transthoracic Echocardiogram Location: OP Height: 162.56 cm Weight: 117.94 kg BSA: 2.19 m2 Heart Rate: 64 bpm BP: 128 / 70 mmHg Director Of Counseling: RACHEL Referring MD: Randall Buck MD Conveyor Loader: Randall Buck MD Symptoms: R07.9 - Chest pain, unspecified Study Quality: Adequate w contrast ECG Rhythm: Sinus Conclusions: - 1. Normal LV systolic function with severe left ventricular hypertrophy 2. Normal cardiac valvular Doppler 3. No gross pericardial effusion Findings Procedure Information Contrast agent, definity, is being given per protocol without apparent complications. Left Ventricle Normal left ventricular size and systolic function. There is severely increased left ventricular wall thickness. The visually estimated ejection fraction is between 65-70%. Spectral Doppler is indicative of a normal filling pattern. Right Ventricle Normal right ventricular cavity size and systolic function. Atria The left atrium is likely dilated. There is no evidence of interatrial shunt. The right atrium is normal in size. Aortic Valve Normal aortic valve structure and function. There is no aortic valve stenosis. There is no aortic valve regurgitation. Mitral Valve Normal mitral valve structure and function. There is trace mitral valve regurgitation. There is no mitral valve stenosis. Pulmonic Valve The pulmonic valve is likely normal. Tricuspid Valve Likely normal tricuspid valve structure and function. Tricuspid regurgitation envelope is inadequate for calculation of right ventricular systolic pressure. Normal right atrial pressure. Great Vessels All visible segments of the aorta are normal in size. The pulmonary artery was not well visualized. There is no dilatation of the ascending aorta. Venous The inferior vena cava is normal in size and collapses greater than 50% with inspiration. Pericardium/Pleural There is no evidence of pericardial effusion. Prior Study Comparison No significant change compared to prior study dated: 09/08/2020. Measurements 2D Linear Measurements IVSd: 1.68 0.6-0.9/0.6-1.0 cm LVIDd: 4.91 3.9-5.3/4.2-5.9 cm LVIDd Index: 2.24 2.4-3.2/2.2-3.1 cm/m2 LVIDs: 2.95 2.0-3.6 cm LVPWd: 1.70 0.7-1.1 cm Ao Root: 3.00 2.1-3.5 cm LA Diam: 3.80 2.7-3.8/3.0-4.0 cm LAIDs Index: 1.74 1.5-2.3 cm/m2 LV Mass: 294.24 67-162/88-224 g LV Mass Index: 134.36 43-95/49-115 g/m2 LVOT Diam: 2.30 3.0+(-)1.3 cm 2D Systolic Function EF 4C: 78.00 >55% EF 2C: 68.20 >55% EF BiP: 73.70 >55% Mitral Valve MV Pk E: 0.87 MV PK A: 0.73 MV Decel Time: 189.00 E/A: 1.20 E'Lateral: 6.53 E'Medial: 6.42 E/E' Med: 13.60 E/E' Lat: 13.40 PHT: 55.00 MVA PHT: 4.00 Decel [place]: 4.61 Aortic Valve AoV Pk Ryan: 1.72 AoV Pk Grad: 12.00 SHIRIN: 3.77 LVOT LVOT Pk Ryan: 1.53 LVOT Mn Ryan: 1.04 LVOT VTI: 0.28 LVOT Pk Grad: 9.00 LVOT Mn Grad: 5.00 LVOT Diam: 2.30 LVOT Area: 4.15 Diastolic Function MV Pk E: 0.87 MV Pk A: 0.73 E/A: 1.20 E'Medial: 6.42 E/E' Med: 13.60 E' Laterial: 6.53 E/E' Lat: 13.40 Right Ventricle TAPSE (mm): 22.40 TVS' Ryan: 16.90 Tricuspid Valve RA Press: 3.00 Great Vessels Aorta Ao Root-2D: 3.00 2.0-3.7 cm Sinus of Valsalva: 3.00 2.0-3.5 cm Ao Asc: 3.10 2.1-3.4 cm Pulmonary Veins Pulm Vein S/D 1.20 Pulmonary Valve PV Pk Ryan: 1.36 Peak PV Grad: 7.00 Updated in Other Vendor System with Status of Final Randall Buck MD electronically signed on 06/08/2023 11:36:55 AM with status of Final
== END ==
LOC: HO.CARD 11:43
PROVIDERS: PCP Nurse Practitioner Family; Visit Provider Internal Medicine Cardiovascular Disease
DX: R07.9 Chest pain, unspecified (principal); G47.30 Sleep apnea, unspecified
CPT/HCPCS: 93242; 93306; Q9957

== ENCOUNTER → 2023-06-06 11:47 | Outpatient (BNV) | payer OTHER, SELFPAY | PROVIDERS: PCP Nurse Practitioner Family; Visit Provider Internal Medicine Cardiovascular Disease | DX: R07.9 Chest pain, unspecified (principal) | CPT/HCPCS: 93244; 93306 ==

== ENCOUNTER → 2023-06-21 09:52 | Outpatient (BNVA) | payer OTHER, SELFPAY | PROVIDERS: PCP Nurse Practitioner Family; Referring Provider Nurse Practitioner Family; Visit Provider Nurse Practitioner Family | DX: R07.89 Other chest pain (principal); I10 Essential (primary) hypertension; E78.5 Hyperlipidemia, unspecified; G47.30 Sleep apnea, unspecified; I25.2 Old myocardial infarction; Z79.899 Other long term (current) drug therapy | CPT/HCPCS: 99212 ==

== ENCOUNTER 2023-06-21 09:53 | Outpatient (AMB) | payer OTHER, SELFPAY ==
[2023-06-21 09:59] VITALS: BP 170/104; PULSE 87; BMI 43.7
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
== END 2023-06-21 10:31 | disposition home or self-care (01) ==
PROVIDERS: PCP Nurse Practitioner Family; Referring Provider Nurse Practitioner Family; Visit Provider Nurse Practitioner Family
DX: R07.89 Other chest pain (principal); I10 Essential (primary) hypertension; E78.5 Hyperlipidemia, unspecified; G47.30 Sleep apnea, unspecified
CPT/HCPCS: 99214

== ENCOUNTER 2024-01-18 14:32 | Emergency (ER) | payer OTHER, SELFPAY ==
[2024-01-18 14:34] VITALS: BP 210/115; PULSE 99; O2SAT 96
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
[2024-01-18 14:40] VITALS: BP 168/101; PULSE 78; RESP 20; TEMP 36.1; O2SAT 96; BMI 45.7
[2024-01-18 14:49] VITALS: BP 168/101; PULSE 78; RESP 20; TEMP 36.1; O2SAT 96
== END 2024-01-18 14:50 | disposition home or self-care (01) ==
LOC: HO.ED 14:48
PROVIDERS: Emergency Provider Emergency Medicine Emergency Medical Services; PCP Nurse Practitioner Family
DX: I10 Essential (primary) hypertension (principal); Z88.6 Allergy status to analgesic agent
CPT/HCPCS: 99282

== ENCOUNTER 2024-01-21 17:05 | Emergency (ER) | payer OTHER, SELFPAY ==
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
[2024-01-21 17:51] VITALS: BP 144/91; PULSE 70; RESP 20; TEMP 36.3; O2SAT 98; BMI 45.4
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
[2024-01-21 19:45] VITALS: BP 144/91; PULSE 70; RESP 20; TEMP 36.3; O2SAT 98
== END 2024-01-21 19:46 | disposition home or self-care (01) ==
PROVIDERS: Emergency Provider Emergency Medicine; PCP Nurse Practitioner Family
DX: S16.1XXA Strain of muscle, fascia and tendon at neck level, initial encounter (principal); M25.511 Pain in right shoulder; I10 Essential (primary) hypertension; V89.2XXA Person injured in unspecified motor-vehicle accident, traffic, initial encounter; Y93.9 Activity, unspecified; Y92.9 Unspecified place or not applicable; Y99.9 Unspecified external cause status
CPT/HCPCS: 73030; 99282; 99283

== ENCOUNTER 2024-04-29 14:02 | Outpatient (AMB) | payer OTHER, SELFPAY ==
--- NOTE | 2024-04-29 14:05 | A.OFFPC_ITS ---
Vital Signs 04/29/24 14:18 Height 5 ft 4 in Weight 256 lb BMI 43.9 BP 148/90 H Blood Pressure Location Rt brachial Position Sitting Respiration 16 Pulse 61 Pulse Source Pulse Oximeter Temp 97.9 F Temp Source Oral Pulse Oximetry (%) 96 Oxygen Delivery Method Room Air Intake Visit Reasons: Office visit Early Childhood Aide Classroom Required: No Allergies acetaminophen [From TYLENOL] Allergy (Unknown, Verified 04/29/24 14:35) AGITATION codeine [CODEINE] Allergy (Unknown, Verified 04/29/24 14:35) CLAUSTROPHOBIA Medication List - Last Reconciled 04/29/24 by Sherita Santiago CNP amlodipine 10 mg PO DAILY atorvastatin (Lipitor) 40 mg PO DAILY bisacodyl (Dulcolax (bisacodyl)) 10 mg (2 x 5 mg) PO ONCE 1 day celecoxib (Celebrex) 200 mg PO BID 30 days cyclobenzaprine 10 mg PO TID PRN fenofibrate 160 mg PO DAILY 30 days hydralazine 25 mg PO TID hydrochlorothiazide 50 mg PO DAILY 90 days lisinopril 40 mg PO DAILY Tobacco use date assessed: 04/29/24 Dental Screening Dental Screen Date: 04/29/24 Did you have a dental visit in the last 12 months?: No Did you have a dental problem in the last 6 months where you did not have access to dental care?: No Was dental information given to patient?: Patient declined HPI HPI Comments History of Present Illness Details 53 y/o male presents for HTN follow up His last office visit was in October 2022. He notes that he was busy with work and transportation is also an issue to his appointments He notes that he has been taking all of the medications as listed on our EHR. However, no script has been sent to the pharmacy by his PCP for the past year and a half. The MA called the patient's pharmacy and was informed that no new medication has been ordered for the patient in over a year. The patient is adamant that he has been getting his medication refills from the pharmacy He requests a transfer back to a PCP in the [place] location [facility] Medical History Chest pain Hyperlipidemia Annual physical exam Hyperglycemia Rectal bleed Diaphoresis Sleep apnea Abdominal pain Rectal bleeding High cholesterol HTN (hypertension) Surgical History No significant past surgical history Family History Mother Heart valve disease Cancer Brother Diabetes mellitus Social History Household Members: Spouse Household Members Other:: fiance and kids Housing: Other Housing Other:: prison/apt Do you presently have visiting nurse or other home services: No Alcohol intake: never Patient Tobacco Use Status: Current everyday Tobacco user Cigarettes Per Day: 6 Years Smoked: 30 e-Cigarette/Vaping Use: Never Used Second Hand Smoke Exposure: No service: No Current occupational status: unemployed Current occupational exposures/hazards: No Cognitive needs: No Hearing needs: No Vision needs: Yes Questionnaire PHQ-9 Over the last 2 weeks, how often have you been bothered by any of the following problems? 1. Little interest or pleasure in doing things: several days 2. Feeling down, depressed, or hopeless: several days 3. Trouble falling or staying asleep, or sleeping too much: not at all 4. Feeling tired or having little energy: nearly every day 5. Poor appetite or overeating: nearly every day 6. Feeling bad about yourself - or that you are a failure or have let yourself or your family down: not at all 7. Trouble concentrating on things, such as reading the newspaper or watching television: not at all 8. Moving or speaking so slowly that other people could have noticed. Or the opposite - being so fidgety or restless that you have been moving around a lot more than usual: not at all 9. Thoughts that you would be better off or of hurting yourself in some way: not at all Total score: 8 21131 - PHQ-9 Billing: Yes Source: Developed by Drs. Rick Aguilera, Gudelia Landaverde, Natan Shelton and colleagues, with an educational olivia from [employer]. Thrive Questionnaire Date Thrive assessed: 10/27/22 AUDIT C Alcohol Use Questionnaire (AUDIT-C) 1. How often do you have a drink containing alcohol?: 2-4 times a month 2. How many drinks containing alcohol do you have on a typical day when you are drinking?: 3 or 4 3. How often do you have six or more drinks on one occasion?: Monthly Total Score: 5 Score Reviewed/Action Taken: Yes AMANDA-7 AMB Questionnaire AMANDA-7 Date AMANDA - 7 assessed: 04/29/24 Feeling nervous, anxious, or on edge: 0 = Not at all Not being able to stop or control worryin = Nearly every day Worrying too much about different things: 3 = Nearly every day Trouble relaxin = Nearly every day Being so restless that it is hard to sit still: 0 = Not at all Becoming easily annoyed or irritable: 3 = Nearly every day Feeling afraid as if something awful might happen: 3 = Nearly every day Total AMANDA-7 score (0-4 normal; 5-9 mild; 10-14 moderate; 15-21 severe): 15 Source: Developed by Drs. Rick Aguilera, Gudelia aLndaverde, Natan Shelton and colleagues, with an educational olivia from [employer]. AMANDA-7 Assessment Billing AMANDA-7 Assessment Tool: AMANDA-7 Assessment 55757 Review of Systems Const Details: Const Denies chills, Denies fatigue, Denies fever(s), Denies headache(s) and Denies weakness ENT Denies dizziness and Denies headache(s) Card Denies chest pain, Denies lightheadedness, Denies dyspnea and Denies other (Palpitations) Resp Denies cough, Denies dyspnea, Denies wheezing and Denies other ( shortness of breath) GI Denies abdominal pain, Denies melena, Denies hematochezia, Denies change in bowel habits, Denies dyspepsia and Denies nausea Denies hematuria and Denies dysuria Musc Denies abnormal gait, Denies myalgias, Denies arthralgias, Denies numbness and Denies tingling Skin/Breast Denies rash, Denies unusual bruising and Denies wounds Neuro Denies abnormal gait, Denies dizziness, Denies headache(s), Denies memory loss, Denies numbness, Denies Sensory deficit (Neuro), Denies tingling and Denies weakness Psych Denies anxiety, Denies depression, Denies memory loss Endo Denies cold intolerance, Denies fatigue, Denies heat intolerance, Denies polydipsia and Denies polyuria Aller/Immun Denies wheezing Physical exam (Primary Care) Vital Signs: Last Vital Signs Temp 97.9 F 04/29/24 14:18 Pulse 61 04/29/24 14:18 Resp 16 04/29/24 14:18 BP 148/90 H 04/29/24 14:18 Pulse Ox 96 04/29/24 14:18 Oxygen Delivery Method Room Air 04/29/24 14:18 BMI result Body Mass Index 43.9 Tobacco/Smoking Status: Tobacco use Status Tobacco use date assessed 04/29/24 04/29/24 14:17 Patient Tobacco Use Status Current everyday Tobacco 04/29/24 14:07 e-Cigarette/Vaping Use Never Used 04/29/24 14:07 PHQ-9: PHQ-9 Score PHQ-9: Total score 8 04/29/24 14:17 Thrive Assessment: Date of Thrive Assessment Date Thrive assessed 10/27/22 04/29/24 14:07 Const Other: General: no acute distress and well developed Nutritional Appearance: well nourished Orientation/consciousness: patient oriented x3 HENMT Head: Yes normocephalic and Yes atraumatic Eyes General: appearance normal, both eyes and all related structures Pupils: Equal, round and reactive pupils present EOM: EOMs intact bilaterally Resp Effort & Inspection: normal respiratory effort Auscultation: clear to auscultation bilaterally Cardio Rate: regular rate Rhythm: regular rhythm Heart sounds: S1 normal heart sound present, S2 normal heart sound present, no gallops, no murmurs and no rubs GI Palpation (GI): No Abdominal aortic bruit present, Soft to palpation, nontender, No hepatosplenomegaly present and No Rebound tenderness present Auscultation: normal bowel sounds General: Yes no CVA tenderness Back/Spine/Pelvis Back: no CVA tenderness Cervical Spine: cervical ROM normal and No Cervical spine tenderness Thoracic/Lumbar Spine: thoraco-lumbar ROM normal, No pain with thoraco-lumbar ROM, No thoracic spinal tenderness and No lumbar spinal tenderness Extrem General: Yes normal to inspection, No edema and No calf tenderness Skin General: warm and dry. Normal skin color. Normal skin turgor Neuro General: patient oriented x3, gait normal and no focal neuro deficit Cranial nerves: Yes Equal, round and reactive pupils present Cognition (Neuro): normal cognition Gait exam (Neuro): Normal gait present Sensory Exam: No Sensory deficit (Neuro) Psych Appearance: grossly normal Affect: normal affect Attitude: cooperative Thought process: Normal thought process present Assessment and Plan Assessment & Plan (1) HTN (hypertension): Code(s): I10 - Essential (primary) hypertension Plan: Resting blood pressure today is 148/90, above goal of less than 140/90 He is adamant that he is taking his medications, including amlodipine, lisinopril, hydrochlorothiazide, and hydralazine as listed on our EMR, despite the pharmacy stating he has not been prescribed any medication in over a year He is advised to bring the medication to the office to be reconciled. He notes that he will bring them on 05/01/2024. Will review his home medications and make changes as needed Low-sodium diet and routine exercise encouraged The OA informed to send a transfer request to the [facility] Verbalized understanding and agreed with the plan (2) Laboratory tests ordered as part of a complete physical exam (CPE): Code(s): Z00.00 - Encounter for general adult medical examination without abnormal findings Plan: Fasting labs ordered as part of a complete physical exam. Advised to fast for at least 10 hours before getting labs drawn. May drink water Verbalized understanding and agreed with treatment plan. Orders: Orders Complete Blood Count Auto Diff Today Z00.00 - Encounter for general adult medical examination without abnormal findings TSH reflex Free T4 Today Z00.00 - Encounter for general adult medical examination without abnormal findings UA CC w/rflx Micro + Cult Today Z00.00 - Encounter for general adult medical examination without abnormal findings Microalbumin, Random (w Creat) Today Z00.00 - Encounter for general adult medical examination without abnormal findings Comprehensive [place]. Panel Fast Today Z00.00 - Encounter for general adult medical examination without abnormal findings Lipid Panel Today Z00.00 - Encounter for general adult medical examination without abnormal findings PSA, Ultra Sensitive Today Z00.00 - Encounter for general adult medical examination without abnormal findings Coding Level of Care Code Est Pt Level 4 (36710) Diagnoses HTN (hypertension) I10 Laboratory tests ordered as part of a complete physical exam (CPE) Z00.00 Additional Codes AMANDA-7 Assessment Billing - AMANDA-7 Assessment Tool: AMANDA-7 Assessment 17500 ([id number])
[2024-04-29 14:18] VITALS: BP 148/90; PULSE 61; RESP 16; TEMP 36.6; O2SAT 96; BMI 43.9
== END 2024-04-29 15:03 | disposition home or self-care (01) ==
PROVIDERS: PCP Nurse Practitioner Family; Visit Provider Nurse Practitioner Family
DX: Z00.00 Encounter for general adult medical examination without abnormal findings (principal); I10 Essential (primary) hypertension
CPT/HCPCS: 99396

== ENCOUNTER 2024-07-26 20:02 | Emergency (ER) | payer OTHER, SELFPAY ==
--- NOTE | ~2024-07-26 | XR_ITS ---
EXAMINATION: XR CHEST CLINICAL INFORMATION: Cough COMPARISON: Multiple prior radiographs most recent August 2022 TECHNIQUE: 2 views of the chest were obtained. FINDINGS: Chronic pleural thickening along the lower lateral aspect of the right lower lung unchanged compared with 2021. Chronic linear opacities in the right lower lung compatible with recurrent discoid atelectasis or scarring unchanged. Lungs otherwise clear. Cardiac mediastinal silhouette normal. Osseous structures: Spondylosis unchanged. . XR/XR chest 2V IMPRESSION: 1. No acute disease. Suspect discoid atelectasis or scarring right lower lung unchanged 2. Chronic pleural thickening and linear opacities in the right lower lung unchanged compared with 2021. Electronically signed by: Jose M Paz MD 07/26/2024 09:40 PM EDT RP
--- NOTE | ~2024-07-26 | CT_ITS ---
EXAMINATION: CT MASTOID WITHOUT CONTRAST CLINICAL INFORMATION: Left mastoid tenderness to palpation. Pain and swelling. COMPARISON: CT head dated 01/02/2021. TECHNIQUE: Contiguous axial CT images of the mastoids were obtained without contrast. Multiplanar reformats were provided and reviewed. This CT examination was performed using dose optimization techniques as appropriate, variously including the following: *Automated exposure control *Adjustment of mA and/or kV according to patient size (this includes techniques or standardized protocols for targeted exams where dose is matched to indication/reason for exam; i.e. extremities or head) *Use of iterative reconstruction technique. DOSE: 822 mGy-cm. FINDINGS: No acute fracture. The visualized calvarium is intact. There is partial opacification within the central aspect of the left mastoid air cells, which is asymmetric to the right and may represent very mild mastoiditis. No associated erosion. No mastoid fracture. Postsurgical change at the medial wall of the right maxillary sinus. Mucoperiosteal thickening of the right maxillary sinus as well as the ethmoid air cells, which could represent a degree of chronic sinusitis. No air-fluid level within the paranasal sinuses. Periapical lucencies adjacent to the mandibular incisors, as well as the remaining right mandibular teeth, consistent with small periapical abscesses. Similar findings adjacent to the right maxillary 1st molar and remaining aspect of the 1st premolar. No abnormal soft tissue mass or fluid collection. Mildly prominent lymph nodes within the inferior aspect of the left parotid gland, which are asymmetric to the right, with the largest measuring up to 1.5 x 0.9 cm. Findings may be reactive. No organized fluid collection or abscess formation. CT/CT mastoid IMPRESSION: 1. Partial opacification within the central aspect of the left mastoid air cells, which is asymmetric to the right, and may represent very mild mastoiditis. No associated erosion. No mastoid fracture. 2. Mucoperiosteal thickening of the right maxillary sinus as well as the ethmoid air cells, which could represent a degree of chronic sinusitis. No air-fluid level within the paranasal sinuses. 3. Periapical lucencies adjacent to the mandibular incisors as well as the remaining right mandibular teeth, consistent with small periapical abscesses. Similar findings adjacent to the right maxillary 1st molar and remaining aspect of the 1st premolar. 4. Mildly prominent lymph nodes within the inferior aspect of the left parotid gland which are asymmetric to the right and may be reactive. No organized fluid collection or abscess formation. Electronically signed by: Gustavo Marmolejo MD 07/26/2024 09:46 PM EDT RP
[2024-07-26 20:10] VITALS: BP 228/127; PULSE 89; RESP 20; TEMP 36.6; O2SAT 97; BMI 43.9
--- NOTE | 2024-07-26 20:11 | ED.EAR ---
HPI - Ear Problem General Chief complaint: Ear Problems Stated complaint: left side hearing loss Time Seen by Provider: 07/26/24 22:20 Source: patient Mode of arrival: ambulatory Limitations: no limitations History of Present Illness ED Provider: evette FRENCH Narrative: Patient's history of hypertension complaining of left ear pain started earlier today no fever no chills Related Data Previous Rx's ?Medication ?Instructions ?Recorded bisacodyl 5 mg tablet,delayed 10 mg (2 x 5 mg) PO ONCE 11/15/21 release (Dulcolax (bisacodyl)) colonoscopy prep 1 day #2 tabs amlodipine 10 mg tablet 10 mg PO DAILY #90 tabs 02/06/22 hydrochlorothiazide 50 mg tablet 50 mg PO DAILY 90 days #90 tabs 08/04/22 celecoxib 200 mg capsule (Celebrex) 200 mg PO BID 30 days #60 caps 09/08/22 fenofibrate 160 mg tablet 160 mg PO DAILY 30 days #30 tabs 11/02/22 lisinopril 40 mg tablet 40 mg PO DAILY #90 tabs 12/20/22 atorvastatin 40 mg tablet (Lipitor) 40 mg PO DAILY #90 tabs 01/05/23 hydralazine 25 mg tablet 25 mg PO TID #90 tabs 06/21/23 cyclobenzaprine 10 mg tablet 10 mg PO TID PRN muscle spasm #15 01/21/24 tabs amoxicillin 875 mg-potassium 1 tab PO BID #20 tabs 07/26/24 clavulanate 125 mg tablet ibuprofen 600 mg tablet 600 mg PO Q6H PRN fever or pain 07/26/24 #30 tabs Allergies Allergy/AdvReac Type Severity Reaction Status Date / Time codeine [CODEINE] Allergy Unknown CLAUSTROPHO Verified 07/26/24 20:12 CAMILO Review of Systems Review of Systems: Yes all other systems are reviewed and are negative PMFSH Past Medical History Medical History Chest pain Hyperlipidemia Annual physical exam Hyperglycemia Rectal bleed Diaphoresis Sleep apnea Abdominal pain Rectal bleeding High cholesterol HTN (hypertension) Surgical History No significant past surgical history Family History Family History Mother Heart valve disease Cancer Brother Diabetes mellitus Social History Social History Household Members: Spouse Household Members Other:: fiance and kids Housing: Other Housing Other:: skilled nursing/apt Do you presently have visiting nurse or other home services: No Alcohol intake: never Patient Tobacco Use Status: Current everyday Tobacco user Cigarettes Per Day: 6 Years Smoked: 30 Smoked in Last 30 Days: Yes e-Cigarette/Vaping Use: Never Used Second Hand Smoke Exposure: No Use of substances other than those prescribed or required for medical reasons: No Advance Directives: No Do you have a plan to hurt others: No Plan service: No Current occupational status: unemployed Current occupational exposures/hazards: No Cognitive needs: No Hearing needs: No Vision needs: Yes Physical Exam Vital Signs: Vital Signs: Last Vital Signs Temp 98.4 F 07/26/24 22:44 Pulse 76 07/26/24 22:44 Resp 20 07/26/24 22:44 BP 200/113 H 07/26/24 22:44 Pulse Ox 98 07/26/24 22:44 O2 Del Method Room Air 07/26/24 22:44 BMI result Body Mass Index 43.9 Appearance: Alert. Oriented X3. No acute distress. ENT: Pharynx normal. Oral Mucosa moist left tympanic membrane inflamed with fluid behind mastoid nontender Neck: Normal inspection. Neck supple. CVS: Normal heart rate and rhythm. Pulses normal. Respiratory: No respiratory distress. Equal air entry bilateral, no wheezing/rales/rhonchi Skin: Skin warm and dry. Normal skin color. Normal skin turgor. Extremities: No lower extremity edema. Neuro: Oriented X 3. Course Course Course Narrative: This is a Rapid Medical Exam performed in triage by Reanna Iyer PA-C. Full HPI, ROS and PE to be performed by primary ED provider. 53-year-old male with past medical history HLD, HTN noncompliant on medication, sleep apnea, presenting to the ED c/o +L ear pain x today w/loss of hearing x2 hours. Also reports cough. Reports headache right now, denies headache at present. denies fever, new SOB (admits to chronic SOB) PE: Hypertensive. + left TM erythematous and bulging with fluid. + left mastoid tenderness with appreciable swelling Plan: EKG, labs, CXR, viral studies, CT mastoid Medications Administered Discontinued Medications Generic Name Dose Route Start Last Admin Trade Name Kennedy PRN Reason Stop Dose Admin Amoxicillin/Clavulanate Potassium 875 mg 07/26/24 22:21 07/26/24 22:34 Amoxicillin/Potassium Clav 875 Mg Tablet PO 07/26/24 22:22 875 mg ONCE ONE Administration Ibuprofen 600 mg 07/26/24 22:34 07/26/24 22:41 Ibuprofen 600 Mg Tablet PO 07/26/24 22:35 600 mg ONCE ONE Administration Medical Decision Making Medical Decision Making [facility] Narrative: Patient with left otitis media no signs of mastoiditis patient has a CT scan of the head which was negative is elevated blood pressure advised to take his hydralazine tonight when he goes home Lab Data [facility] Lab Attestation statement: I reviewed the patient's lab results. 07/26/24 20:33 07/26/24 20:33 Labs: Lab Results 07/26/24 Range/Units 20:33 WBC 8.5 (4.8-10.8) X10*3/uL RBC 4.77 (4.60-5.80) X10*6/uL Hgb 15.3 (14.0-18.0) g/dl Hct 42.6 (42.0-52.0) % MCV 89.3 (80.0-98.0) fL MCH 32.1 (27.0-33.0) pg MCHC 35.9 (31.0-36.0) g/dl RDW 12.3 (11.0-16.0) % Plt Count 195 (160-400) X10*3/uL MPV 9.6 (9.4-12.4) fL Immature Gran % (Auto) 0.8 H (0.0-0.4) % Neut % (Auto) 75.1 H (45-73) % Lymph % (Auto) 15.9 L (20-40) % Mccone % (Auto) 6.5 (2-11) % Eos % (Auto) 1.3 (0-4) % Baso % (Auto) 0.4 (0-2) % Lymph # (Auto) 1.4 (1.2-4.9) X10*3/uL Mccone # (Auto) 0.6 (0.1-1.2) X10*3/uL Eos # (Auto) 0.1 (0.0-0.4) X10*3/uL Baso # (Auto) 0.0 (0.0-0.2) X10*3/uL Abs Immat Gran (auto) 0.07 H (0.00-0.03) X10*3/uL Absolute Neuts (auto) 6.4 (2.0-8.3) x10*3/uL Absolute Nucleated RBC 0.000 (0.0-0.012) X10*3/uL Nucleated RBC % (auto) 0.0 (0.0-0.2) /100WBC ESR 7 (0-15) MM/HR PT 9.8 L (10.9-12.4) SEC INR 0.8 L (0.9-1.1) Sodium 142 (135-145) mmol/L Potassium 4.2 (3.3-5.1) mmol/L Chloride 106 (96-108) mmol/L Carbon Dioxide 27 (22-29) mmol/L Anion Gap 13 (12-20) BUN 12 (9-16) mg/dL Creatinine 0.79 (0.5-1.4) mg/dL Estim Creat Clear Calc 125.2 Estimated GFR > 60 Random Glucose 118 H (60-115) mg/dL Calcium 8.9 (8.4-10.2) mg/dL Magnesium 2.0 (1.6-2.6) mg/dL Total Bilirubin 0.2 (0.0-1.0) mg/dL Direct Bilirubin < 0.2 (0.0-0.5) mg/dL AST 16 (5-37) U/L ALT 23 (0-40) U/L Alkaline Phosphatase 79 (39-117) U/L Troponin I High Sens 11.5 (<3.5-35.0) ng/L C-Reactive Protein 0.56 H (< or = 0.50) mg/dL Total Protein 6.8 (6.5-8.0) g/dL Albumin 4.1 (3.5-5.0) g/dL Influenza Type A (PCR) NEGATIVE (Negative) Influenza Type B (PCR) NEGATIVE (Negative) RSV RNA Qual (PCR) NEGATIVE (Negative) SARS-CoV-2 RNA (RT-PCR) NEGATIVE (Negative) Discharge Plan Discharge Clinical Impression: Acute left otitis media Patient Disposition: Home, Self-Care Instructions: Ear Infection (ED) Additional Instructions: Take antibiotic for left ear infection Ibuprofen for pain Follow with PCP as needed Prescriptions: New ibuprofen 600 mg tablet 600 mg PO Q6H PRN (Reason: fever or pain) Qty: 30 0RF amoxicillin-pot clavulanate 875-125 mg tablet 1 tab PO BID Qty: 20 0RF No Action amlodipine 10 mg tablet 10 mg PO DAILY Qty: 90 3RF fenofibrate 160 mg tablet 160 mg PO DAILY 30 Days Qty: 30 0RF lisinopril 40 mg tablet 40 mg PO DAILY Qty: 90 3RF atorvastatin [Lipitor] 40 mg tablet 40 mg PO DAILY Qty: 90 1RF Rx Instructions: Schedule next PCP appt for more refills cyclobenzaprine 10 mg tablet 10 mg PO TID PRN (Reason: muscle spasm) Qty: 15 0RF hydrochlorothiazide 50 mg tablet 50 mg PO DAILY 90 Days Qty: 90 3RF bisacodyl [Dulcolax (bisacodyl)] 5 mg tablet,delayed release (DR/EC) 10 mg PO ONCE 1 Days Qty: 2 0RF Rx Instructions: Take 2 tablets by mouth at 12:00pm the day before your procedure. celecoxib [Celebrex] 200 mg capsule 200 mg PO BID 30 Days Qty: 60 3RF hydralazine 25 mg tablet 25 mg PO TID Qty: 90 5RF Interventions: ED Discharge Assessment Last Done: 07/26/24 22:44 Discharge Date/Time: 07/26/24 22:46 Print Language: Mexican
--- NOTE | 2024-07-26 20:14 | ECG_ITS ---
Test Reason : HTN Blood Pressure : / mmHG Vent. Rate : 089 BPM Atrial Rate : 089 BPM P-R Int : 158 ms QRS Dur : 096 ms QT Int : 358 ms P-R-T Axes : 048 050 131 degrees QTc Int : 435 ms Normal sinus rhythm ST & T wave abnormality, consider lateral ischemia Abnormal ECG When compared with ECG of 15-AUG-2022 22:22, No significant change was found Referred By: Reanna Iyer Electronically Signed By:MITUL JACKSON
[2024-07-26 20:17] VITALS: BP 211/111
[2024-07-26 20:43] LABS: Basophils Percent Auto 0.4 % (0-2); Eosinophils Absolute Auto 0.1 X10*3/uL (0.0-0.4); Eosinophils Percent Auto 1.3 % (0-4); Hematocrit 42.6 % (42.0-52.0); Hemoglobin 15.3 g/dl (14.0-18.0); Imm Gran Abs Auto 0.07 X10*3/uL (0.00-0.03); Imm Gran Pct Auto 0.8 % (0.0-0.4); Lymphocytes Absolute Auto 1.4 X10*3/uL (1.2-4.9); Lymphocytes Percent Auto 15.9 % (20-40); MANUAL DIFF FLAG NO; Mean Corpuscular HGB Conc 35.9 g/dl (31.0-36.0); Mean Corpuscular Hemoglobin 32.1 pg (27.0-33.0); Mean Corpuscular Volume 89.3 fL (80.0-98.0); Mean Platelet Volume 9.6 fL (9.4-12.4); Monocytes Absolute Auto 0.6 X10*3/uL (0.1-1.2); Monocytes Percent Auto 6.5 % (2-11); Neutrophils Absolute Auto 6.4 x10*3/uL (2.0-8.3); Neutrophils Percent Auto 75.1 % (45-73); Platelet Count 195 X10*3/uL (160-400); Red Blood Count 4.77 X10*6/uL (4.60-5.80); Red Cell Distribution Width 12.3 % (11.0-16.0); White Blood Count 8.5 X10*3/uL (4.8-10.8)
[2024-07-26 20:51] LABS: INTERNATIONAL NORM RATIO 0.8 (0.9-1.1); Prothrombin Time 9.8 SEC (10.9-12.4)
[2024-07-26 21:01] LABS: Alanine Aminotransferase 23 U/L (0-40); Albumin Level 4.1 g/dL (3.5-5.0); Alkaline Phosphatase 79 U/L (39-117); Anion Gap 13 (12-20); Aspartate Amino Transferase 16 U/L (5-37); Bilirubin Direct < 0.2 mg/dL (0.0-0.5); Bilirubin Total 0.2 mg/dL (0.0-1.0); Blood Urea Nitrogen 12 mg/dL (9-16); C Reactive Protein 0.56 mg/dL (< or = 0.50); Calcium 8.9 mg/dL (8.4-10.2); Carbon Dioxide 27 mmol/L (22-29); Chloride 106 mmol/L (96-108); Creatinine Clr Calc Pharmacy 125.2; Estimated Glomerular Filt Rate > 60; Glucose Random 118 mg/dL (60-115); Potassium 4.2 mmol/L (3.3-5.1); Sodium 142 mmol/L (135-145); Total Protein 6.8 g/dL (6.5-8.0)
[2024-07-26 21:08] LABS: Troponin-I High Sensitivity 11.5 ng/L (<3.5-35.0)
[2024-07-26 21:23] LABS: Influenza A PCR NEGATIVE (Negative); Influenza B PCR NEGATIVE (Negative); Resp Syncy Virus RNA Qual PCR NEGATIVE (Negative); SARS COV2 PCR INHOUSE NEGATIVE (Negative)
[2024-07-26 21:28] LABS: Erythrocyte Sedimentation Rate 7 MM/HR (0-15)
[2024-07-26 22:01] VITALS: BP 200/113; PULSE 76; RESP 20; O2SAT 98
[2024-07-26] MEDS: Amoxicillin/Potassium Clav 875 MG TABLET PO (22:34)
[2024-07-26] MEDS: Ibuprofen 600 MG TABLET PO (22:41)
[2024-07-26 22:44] VITALS: BP 200/113; PULSE 76; RESP 20; TEMP 36.9; O2SAT 98
== END 2024-07-26 22:46 | disposition home or self-care (01) ==
PROVIDERS: Physician Assistant; Emergency Provider Internal Medicine; PCP Nurse Practitioner Family
DX: H66.92 Otitis media, unspecified, left ear (principal); H92.02 Otalgia, left ear; I10 Essential (primary) hypertension; E78.5 Hyperlipidemia, unspecified; Z79.899 Other long term (current) drug therapy; Z79.02 Long term (current) use of antithrombotics/antiplatelets; F17.210 Nicotine dependence, cigarettes, uncomplicated; Z03.818 Encounter for observation for suspected exposure to other biological agents ruled out
CPT/HCPCS: 0241U; 36415; 70481; 71046; 80048; 80076; 83735; 84484; 85025; 85610; 85652; 86140; 93005; 99284

== ENCOUNTER → 2024-07-26 20:14 | Outpatient (BNV) | payer OTHER, SELFPAY | PROVIDERS: Emergency Provider Internal Medicine; PCP Nurse Practitioner Family; Visit Provider Internal Medicine | DX: I10 Essential (primary) hypertension (principal) | CPT/HCPCS: 93010 ==

== ENCOUNTER 2024-08-21 10:11 | Outpatient (AMB) | payer OTHER, SELFPAY ==
--- NOTE | 2024-08-21 10:24 | MHC.PC.OV ---
Vital Signs 08/21/24 10:44 Height 5 ft 4 in Weight 255 lb BMI 43.8 BP 190/100 H Blood Pressure Location Rt brachial Position Sitting Respiration 16 Pulse 83 Pulse Source Pulse Oximeter Temp 97.7 F Temp Source Oral Pulse Oximetry (%) 97 Oxygen Delivery Method Room Air Intake Visit Reasons: paperwork Intake Note: patient here for paperwork and refills Equipment Service Associate Required: No Allergies codeine [CODEINE] Allergy (Unknown, Verified 08/21/24 10:48) CLAUSTROPHOBIA Medication List - Last Reconciled 08/21/24 by Sherita Santiago CNP amlodipine 10 mg PO DAILY atorvastatin (Lipitor) 40 mg PO DAILY bisacodyl (Dulcolax (bisacodyl)) 10 mg (2 x 5 mg) PO ONCE 1 day celecoxib (Celebrex) 200 mg PO BID 30 days cyclobenzaprine 10 mg PO TID PRN fenofibrate 160 mg PO DAILY 30 days hydralazine 25 mg PO TID hydrochlorothiazide 50 mg PO DAILY 90 days ibuprofen 600 mg PO Q6H PRN lisinopril 40 mg PO DAILY Tobacco use date assessed: 08/21/24 Dental Screening Dental Screen Date: 08/21/24 Did you have a dental visit in the last 12 months?: No Did you have a dental problem in the last 6 months where you did not have access to dental care?: No Was dental information given to patient?: Patient has dentist HPI HPI Comments History of Present Illness Details 54-year-old male presents for HTN follow up. His last office visit was on 04/29/2024. His blood pressure was elevated. It was advised to return with his medications for reconciliation and proper management. He notes that he is on lisinopril 40 mg daily, amlodipine 10 mg daily, hydralazine 25 mg 3 times daily, and hydrochlorothiazide 50 mg daily. He ran out of the medications 4 days ago. He is also on atorvastatin and fenofibrate which he ran out of 2 days ago. He notes that he has been making unhealthy dietary choices, including fast foods and chocolate. He often walks. He smokes 10-12 cigarettes daily. He has been smoking since he has 15 years old. He stopped smoking for 30 days while incarcerated in 2011. He works 20 hours a week. He notes that his electricity was disconnected because he could not afford to pay his bills. His electricity was reconnected but will soon be disconnected. He requests paperwork for his electricity to stay connected for CPAP use. He has history of sleep apnea and notes he uses a CPAP. He notes that his last sleep study was 2-3 years ago. He had lab sleep study [facility]. He reports intermittent SOB that wakes him up from sleep while using his CPAP. He notes that he has not been able to follow-up with his PCP due to significant family stressors and challenges transportation. He requested a transfer to the [facility] in April but that has not been done. [facility] Medical History Chest pain Hyperlipidemia Annual physical exam Hyperglycemia Rectal bleed Diaphoresis Sleep apnea Abdominal pain Rectal bleeding High cholesterol HTN (hypertension) Surgical History No significant past surgical history Family History Mother Heart valve disease Cancer Brother Diabetes mellitus Social History Household Members: Spouse Household Members Other:: fiance and kids Housing: Other Housing Other:: detention/apt Do you presently have visiting nurse or other home services: No Alcohol intake: never Patient Tobacco Use Status: Current everyday Tobacco user Cigarettes Per Day: 6 Years Smoked: 30 e-Cigarette/Vaping Use: Never Used Second Hand Smoke Exposure: No service: No Current occupational status: unemployed Current occupational exposures/hazards: No Cognitive needs: No Hearing needs: No Vision needs: Yes Questionnaire PHQ-9 Over the last 2 weeks, how often have you been bothered by any of the following problems? 1. Little interest or pleasure in doing things: not at all 2. Feeling down, depressed, or hopeless: not at all 3. Trouble falling or staying asleep, or sleeping too much: not at all 4. Feeling tired or having little energy: not at all 5. Poor appetite or overeating: not at all 6. Feeling bad about yourself - or that you are a failure or have let yourself or your family down: not at all 7. Trouble concentrating on things, such as reading the newspaper or watching television: not at all 8. Moving or speaking so slowly that other people could have noticed. Or the opposite - being so fidgety or restless that you have been moving around a lot more than usual: not at all 9. Thoughts that you would be better off or of hurting yourself in some way: not at all Total score: 0 Depression Screening Interpretation: Negative Depression Screening Done: Yes Source: Developed by Drs. Rick Aguilera, Gudelia Landaverde, Natan Shelton and colleagues, with an educational olivia from [email or web address]. Thrive Questionnaire Date Thrive assessed: 08/21/24 I am a: Patient What is your living situation today?: I have a steady place to live Within the past 12 months, did the food you bought not last and you didn't have the money to get more?: Often true Within the past 12 months, did you worry whether your food would run out before you got money to buy more?: Often true Do you have trouble paying for medicines?: Yes Do you have trouble getting transportation to medical appointments?: Yes Do you have trouble paying your heating and electricity bill?: Yes Do you have trouble taking care of your child, family member or friend?: No Do you have trouble with day-to-day activities such as bathing, preparing meals, shopping, managing finances, etc.?: Yes Are you currently unemployed and looking for a job?: No Are you interested in more education?: Yes THRIVE Score: 4 AMANDA-7 AMB Questionnaire AMANDA-7 Date AMANDA - 7 assessed: 04/29/24 Source: Developed by Drs. Rick Aguilera, Gudelia Landaverde, Natan Shelton and colleagues, with an educational olivia from [email or web address]. Review of Systems Const Details: Const Denies chills, Denies fatigue, Denies fever(s), Denies headache(s) and Denies weakness ENT Denies dizziness and Denies headache(s) Card Denies chest pain, Denies lightheadedness, Denies dyspnea and Denies other (Palpitations) Resp Denies cough, Denies dyspnea, Denies wheezing and Denies other ( shortness of breath) GI Denies abdominal pain, Denies melena, Denies hematochezia, Denies change in bowel habits, Denies dyspepsia and Denies nausea Denies hematuria and Denies dysuria Musc Denies abnormal gait, Denies myalgias, Denies arthralgias, Denies numbness and Denies tingling Skin/Breast Denies rash, Denies unusual bruising and Denies wounds Neuro Denies abnormal gait, Denies dizziness, Denies headache(s), Denies memory loss, Denies numbness, Denies Sensory deficit (Neuro), Denies tingling and Denies weakness Psych Denies anxiety, Denies depression, Denies memory loss Endo Denies cold intolerance, Denies fatigue, Denies heat intolerance, Denies polydipsia and Denies polyuria Aller/Immun Denies wheezing Physical exam (Primary Care) Vital Signs: Last Vital Signs Temp 97.7 F 08/21/24 10:44 Pulse 83 08/21/24 10:44 Resp 16 08/21/24 10:44 BP 190/100 H 08/21/24 10:44 Pulse Ox 97 08/21/24 10:44 Oxygen Delivery Method Room Air 08/21/24 10:44 BMI result Body Mass Index 43.8 Tobacco/Smoking Status: Tobacco use Status Tobacco use date assessed 08/21/24 08/21/24 10:44 Patient Tobacco Use Status Current everyday Tobacco 08/21/24 10:25 e-Cigarette/Vaping Use Never Used 08/21/24 10:25 PHQ-9: PHQ-9 Score PHQ-9: Total score 0 08/21/24 11:38 Depression Screening Interpretation: Negative Thrive Assessment: Date of Thrive Assessment Date Thrive assessed 08/21/24 08/21/24 10:25 Const Other: General: no acute distress and well developed Nutritional Appearance: well nourished Orientation/consciousness: patient oriented x3 HENMT Head: Yes normocephalic and Yes atraumatic Eyes General: appearance normal, both eyes and all related structures Pupils: Equal, round and reactive pupils present EOM: EOMs intact bilaterally Resp Effort & Inspection: normal respiratory effort Auscultation: clear to auscultation bilaterally Cardio Rate: regular rate Rhythm: regular rhythm Heart sounds: S1 normal heart sound present, S2 normal heart sound present, no gallops, no murmurs and no rubs GI Palpation (GI): No Abdominal aortic bruit present, Soft to palpation, nontender, No hepatosplenomegaly present and No Rebound tenderness present Auscultation: normal bowel sounds General: Yes no CVA tenderness Back/Spine/Pelvis Back: no CVA tenderness Extrem General: Yes normal to inspection, No edema and No calf tenderness Skin General: warm and dry. Normal skin color. Normal skin turgor Neuro General: patient oriented x3, gait normal and no focal neuro deficit Cranial nerves: Yes Equal, round and reactive pupils present Cognition (Neuro): normal cognition Gait exam (Neuro): Normal gait present Sensory Exam: No Sensory deficit (Neuro) Psych Appearance: grossly normal Affect: normal affect Attitude: cooperative Thought process: Normal thought process present Coding Level of Care Code Est Pt Level 4 (50853) Complex EM visit Add On G2211 Diagnoses Uncontrolled hypertension I10 Sleep apnea, unspecified type G47.30 Sleep apnea type: unspecified type Smoking 1/2 pack a day or less F17.210 Assessment & Plan Assessment & Plan (1) Uncontrolled hypertension: Code(s): I10 - Essential (primary) hypertension Category: Medical Plan: Resting blood pressure is 190/100, above goal of less than 140/90. He has documented elevated blood pressure readings with systolic blood pressure above 200 and diastolic blood pressure above 100 The MA called the patient's pharmacy and was informed that the patient has not picked up any medication other than antibiotics in the past 1 year Will start lisinopril 20 mg daily. Advised to take as prescribed. Instructed on the risks, benefits, and potential adverse reactions of the medication Low-sodium diet encouraged Follow-up in 4 days or sooner with symptoms or concerns Verbalized understanding and agreed with the treatment plan The office assistants advised to put a transfer request for the patient to the [facility] due to transportation issues to the [place] office (2) Sleep apnea: Code(s): G47.30 - Sleep apnea, unspecified Category: Medical Qualifiers: Sleep apnea type: unspecified type Qualified Code(s): G47.30 - Sleep apnea, unspecified Plan: He is on CPAP. His last sleep study was 2-3 years ago. He has intermittent SOB the interrupts his sleep while on CPAP Referred to [facility] sleep medicine Paperwork completed for his electric company to keep his electricity connected so that he can use his CPAP Follow-up as needed Verbalized understanding and agreed with the treatment plan (3) Smoking 1/2 pack a day or less: Code(s): F17.210 - Nicotine dependence, cigarettes, uncomplicated Category: Social Hx Plan: He smokes 10-12 cigarettes daily. He has been smoking since he has 15 years old Instructed on the health risks and complications of cigarette smoking and smoking cessation encouraged He declines medication treatment for smoking cessation at this time Encouraged to inform his PCP as needed for medication treatment for smoking cessation Verbalized understanding and agreed with the plan Orders: Orders Glucose Fasting Today Z00.00 - Encounter for general adult medical examination without abnormal findings Referrals Sleep Medicine Referral G47.30 - Sleep apnea, unspecified Medications: New lisinopril 20 mg PO DAILY 30 days 30 tabs 2RF Discontinued lisinopril Discontinued Reason: Doctor's Order 40 mg PO DAILY 90 tabs 3RF amlodipine Discontinued Reason: Doctor's Order 10 mg PO DAILY 90 tabs 3RF hydrochlorothiazide Discontinued Reason: Change Referral Type 50 mg PO DAILY 90 days 90 tabs 3RF hydralazine Discontinued Reason: Doctor's Order 25 mg PO TID 90 tabs 5RF
[2024-08-21 10:44] VITALS: BP 190/100; PULSE 83; RESP 16; TEMP 36.5; O2SAT 97; BMI 43.8
== END 2024-08-21 11:18 | disposition home or self-care (01) ==
PROVIDERS: PCP Nurse Practitioner Family; Visit Provider Nurse Practitioner Family
DX: I10 Essential (primary) hypertension (principal); G47.30 Sleep apnea, unspecified; F17.210 Nicotine dependence, cigarettes, uncomplicated

== ENCOUNTER → 2024-08-21 10:11 | Outpatient (BNVA) | payer OTHER, SELFPAY | PROVIDERS: PCP Nurse Practitioner Family; Visit Provider Nurse Practitioner Family | DX: I10 Essential (primary) hypertension (principal); G47.30 Sleep apnea, unspecified; F17.210 Nicotine dependence, cigarettes, uncomplicated; Z71.6 Tobacco abuse counseling | CPT/HCPCS: 99212 ==

== ENCOUNTER 2024-09-09 20:05 | Emergency (ER) | payer OTHER, SELFPAY ==
[2024-09-09 20:38] VITALS: BP 193/104; PULSE 95; RESP 18; TEMP 35.9; O2SAT 98; BMI 43.4
--- NOTE | 2024-09-09 20:38 | ED.ABDPAIN ---
HPI - Abdominal Pain General Chief Complaint: Abdominal Pain Stated Complaint: left side pain Time Seen by Provider: 09/09/24 23:25 Source: patient Mode of arrival: ambulatory Limitations: no limitations History of Present Illness ED Provider: HPI narrative: Patient's history of hypertension, GERD comes here with rectal bleeding patient has had colonoscopy last week which was no today patient had 3 bowel movements earlier mixed with the blood does have history of hemorrhoids but blood was dark no bleeding since 1 pm no abdominal pain not on any blood thinner Related Data Previous Rx's ?Medication ?Instructions ?Recorded bisacodyl 5 mg tablet,delayed 10 mg (2 x 5 mg) PO ONCE 11/15/21 release (Dulcolax (bisacodyl)) colonoscopy prep 1 day #2 tabs celecoxib 200 mg capsule (Celebrex) 200 mg PO BID 30 days #60 caps 09/08/22 fenofibrate 160 mg tablet 160 mg PO DAILY 30 days #30 tabs 11/02/22 atorvastatin 40 mg tablet (Lipitor) 40 mg PO DAILY #90 tabs 01/05/23 cyclobenzaprine 10 mg tablet 10 mg PO TID PRN muscle spasm #15 01/21/24 tabs ibuprofen 600 mg tablet 600 mg PO Q6H PRN fever or pain 07/26/24 #30 tabs lisinopril 20 mg tablet 20 mg PO DAILY 30 days #30 tabs 08/21/24 amlodipine 10 mg tablet 10 mg PO DAILY #30 tabs 09/10/24 hydrocortisone acetate 25 mg 25 mg NE BID #12 ea 09/10/24 rectal suppository (Anusol-HC) Allergies Allergy/AdvReac Type Severity Reaction Status Date / Time codeine [CODEINE] Allergy Unknown CLAUSTROPHO Verified 09/09/24 20:40 CAMILO Review of Systems Review of Systems Yes all other systems are reviewed and are negative [facility] Past Medical History Medical History Chest pain Hyperlipidemia Annual physical exam Hyperglycemia Rectal bleed Diaphoresis Sleep apnea Abdominal pain Rectal bleeding High cholesterol HTN (hypertension) Surgical History No significant past surgical history Family History Family History Mother Heart valve disease Cancer Brother Diabetes mellitus Social History Social History Household Members: Spouse Household Members Other:: fiance and kids Housing: Other Housing Other:: senior living/apt Do you presently have visiting nurse or other home services: No Alcohol intake: never Patient Tobacco Use Status: Current everyday Tobacco user Cigarettes Per Day: 6 Years Smoked: 30 e-Cigarette/Vaping Use: Never Used Second Hand Smoke Exposure: No Advance Directives: No Advance Directives Information Provided: No Do you have a plan to hurt others: No Plan service: No Current occupational status: unemployed Current occupational exposures/hazards: No Cognitive needs: No Hearing needs: No Vision needs: Yes Physical Exam ED Vital Signs: Vital Signs - 24 hr 09/09/24 20:38 09/09/24 22:45 Temperature 96.7 F L 98.7 F Pulse Rate 95 90 Respiratory Rate 18 18 Blood Pressure 193/104 H 172/104 H Pulse Oximetry 98 96 Oxygen Delivery Method Room Air Room Air BMI result Body Mass Index 43.4 Appearance: Alert. Oriented X3. No acute distress. Eyes: PERRLA, No Nystagmus ENT: Pharynx normal. Oral Mucosa moist Neck: Normal inspection. Neck supple. CVS: Normal heart rate and rhythm. Pulses normal. Respiratory: No respiratory distress. Equal air entry bilateral, no wheezing/rales/rhonchi Abdomen: Soft and nontender. Bowel sounds are present, no mass palpable, no CVA tenderness rectal: Brown stool guaiac + ve Skin: Skin warm and dry. Normal skin color. Normal skin turgor. Extremities: No lower extremity edema. No calf tenderness Neuro: Oriented X 3. No motor deficit. Course Course Course Narrative: This is a rapid medical exam performed by Sadie Moncada PA-C. The patient is a 54-year-old male with a history of poorly controlled hypertension, hyperlipidemia, morbid obesity, sleep apnea, prior rectal bleeding, who presents with the abdominal pain x1 day. Patient states he had 3 large volume bloody bowel movements while at work. Associated left-sided abdominal pain, that is mid to lower abdomen. Unable to describe the pain. On exam, his abdomen is protuberant, obese, nontender to palpation, no guarding. We will screen basic labs, he will likely require a CT scan. The patient is also hypertensive, he has been off his medication for a week, he has a history of poorly controlled hypertension. He can return to the waiting room pending his full medical assessment. Medical Decision Making Medical Decision Making [facility] Narrative: Patient with minor rectal bleed H&H stable no active rectal bleeding at this time had colonoscopy last year which was negative. 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 09/09/24 20:54 09/09/24 20:53 Labs: Lab Results 09/09/24 09/09/24 09/09/24 Range/Units 20:53 20:54 21:44 WBC 6.9 (4.8-10.8) X10*3/uL RBC 4.80 (4.60-5.80) X10*6/uL Hgb 15.3 (14.0-18.0) g/dl Hct 42.0 (42.0-52.0) % MCV 87.5 (80.0-98.0) fL MCH 31.9 (27.0-33.0) pg MCHC 36.4 H (31.0-36.0) g/dl RDW 12.4 (11.0-16.0) % Plt Count 214 (160-400) X10*3/uL MPV 9.3 L (9.4-12.4) fL Immature Gran % (Auto) 0.3 (0.0-0.4) % Neut % (Auto) 60.1 (45-73) % Lymph % (Auto) 30.2 (20-40) % [place] % (Auto) 7.4 (2-11) % Eos % (Auto) 1.7 (0-4) % Baso % (Auto) 0.3 (0-2) % Lymph # (Auto) 2.1 (1.2-4.9) X10*3/uL [place] # (Auto) 0.5 (0.1-1.2) X10*3/uL Eos # (Auto) 0.1 (0.0-0.4) X10*3/uL Baso # (Auto) 0.0 (0.0-0.2) X10*3/uL Abs Immat Gran (auto) 0.02 (0.00-0.03) X10*3/uL Absolute Neuts (auto) 4.2 (2.0-8.3) x10*3/uL Absolute Nucleated RBC 0.000 (0.0-0.012) X10*3/uL Nucleated RBC % (auto) 0.0 (0.0-0.2) /100WBC Sodium 140 (135-145) mmol/L Potassium 3.7 (3.3-5.1) mmol/L Chloride 107 (96-108) mmol/L Carbon Dioxide 24 (22-29) mmol/L Anion Gap 13 (12-20) BUN 12 (9-16) mg/dL Creatinine 0.79 (0.5-1.4) mg/dL Estim Creat Clear Calc 123.0 Estimated GFR > 60 Random Glucose 111 (60-115) mg/dL Calcium 8.6 (8.4-10.2) mg/dL Magnesium 2.1 (1.6-2.6) mg/dL Total Bilirubin 0.3 (0.0-1.0) mg/dL AST 26 (5-37) U/L ALT 24 (0-40) U/L Alkaline Phosphatase 63 (39-117) U/L Total Protein 7.0 (6.5-8.0) g/dL Albumin 4.2 (3.5-5.0) g/dL Lipase 16 (8-78) U/L Urine Color Yellow Urine Appearance Clear Urine pH 6.0 (5.0-9.0) Ur Specific [place] 1.020 (1.005-1.025) Urine Protein 300 (3+) H (Neg-Trace) mg/dL Urine Glucose (UA) Negative (Negative) mg/dL Urine Ketones Negative (Negative) mg/dL Urine Blood Small (1+) H (Negative) Urine Nitrite Negative (Negative) Ur Leukocyte Esterase Negative (Negative) Urine RBC 11-20 H (0-2) /HPF Urine WBC 0-5 (0-5) /HPF Ur Squamous Epith Cells 0-2 (0-2) /HPF Urine Bacteria None Seen (None Seen) Hyaline Casts 0-2 (0-2) /LPF Stool Occult Blood (NEGATIVE) 09/09/24 Range/Units 23:49 WBC (4.8-10.8) X10*3/uL RBC (4.60-5.80) X10*6/uL Hgb (14.0-18.0) g/dl Hct (42.0-52.0) % MCV (80.0-98.0) fL MCH (27.0-33.0) pg MCHC (31.0-36.0) g/dl RDW (11.0-16.0) % Plt Count (160-400) X10*3/uL MPV (9.4-12.4) fL Immature Gran % (Auto) (0.0-0.4) % Neut % (Auto) (45-73) % Lymph % (Auto) (20-40) % [place] % (Auto) (2-11) % Eos % (Auto) (0-4) % Baso % (Auto) (0-2) % Lymph # (Auto) (1.2-4.9) X10*3/uL [place] # (Auto) (0.1-1.2) X10*3/uL Eos # (Auto) (0.0-0.4) X10*3/uL Baso # (Auto) (0.0-0.2) X10*3/uL Abs Immat Gran (auto) (0.00-0.03) X10*3/uL Absolute Neuts (auto) (2.0-8.3) x10*3/uL Absolute Nucleated RBC (0.0-0.012) X10*3/uL Nucleated RBC % (auto) (0.0-0.2) /100WBC Sodium (135-145) mmol/L Potassium (3.3-5.1) mmol/L Chloride (96-108) mmol/L Carbon Dioxide (22-29) mmol/L Anion Gap (12-20) BUN (9-16) mg/dL Creatinine (0.5-1.4) mg/dL Estim Creat Clear Calc Estimated GFR Random Glucose (60-115) mg/dL Calcium (8.4-10.2) mg/dL Magnesium (1.6-2.6) mg/dL Total Bilirubin (0.0-1.0) mg/dL AST (5-37) U/L ALT (0-40) U/L Alkaline Phosphatase (39-117) U/L Total Protein (6.5-8.0) g/dL Albumin (3.5-5.0) g/dL Lipase (8-78) U/L Urine Color Urine Appearance Urine pH (5.0-9.0) Ur Specific Al[place] (1.005-1.025) Urine Protein (Neg-Trace) mg/dL Urine Glucose (UA) (Negative) mg/dL Urine Ketones (Negative) mg/dL Urine Blood (Negative) Urine Nitrite (Negative) Ur Leukocyte Esterase (Negative) Urine RBC (0-2) /HPF Urine WBC (0-5) /HPF Ur Squamous Epith Cells (0-2) /HPF Urine Bacteria (None Seen) Hyaline Casts (0-2) /LPF Stool Occult Blood POSITIVE (NEGATIVE) Medications Administered Discontinued Medications Generic Name Dose Route Start Last Admin Trade Name Freq PRN Reason Stop Dose Admin Amlodipine Besylate 10 mg 09/10/24 00:23 09/10/24 00:39 Amlodipine Besylate 10 Mg Tablet PO 09/10/24 00:24 10 mg ONCE ONE Administration Protocol Discharge Plan Discharge Clinical Impression: HTN (hypertension), Rectal bleeding Patient Disposition: Home, Self-Care Instructions: Rectal Bleeding (ED), Chronic Hypertension (ED) Additional Instructions: Rectal bleeding is likely from internal hemorrhoids Avoid straining/constipation Use Anusol suppository twice a day for 5days 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 your 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 Your elevated blood pressure is on control continue lisinopril and start on amlodipine 10 mg daily Follow with your PCP Prescriptions: New hydrocortisone acetate [Anusol-HC] 25 mg suppository 25 mg NE BID Qty: 12 0RF amlodipine 10 mg tablet 10 mg PO DAILY Qty: 30 0RF No Action fenofibrate 160 mg tablet 160 mg PO DAILY 30 Days Qty: 30 0RF atorvastatin [Lipitor] 40 mg tablet 40 mg PO DAILY Qty: 90 1RF Rx Instructions: Schedule next PCP appt for more refills cyclobenzaprine 10 mg tablet 10 mg PO TID PRN (Reason: muscle spasm) Qty: 15 0RF ibuprofen 600 mg tablet 600 mg PO Q6H PRN (Reason: fever or pain) Qty: 30 0RF bisacodyl [Dulcolax (bisacodyl)] 5 mg tablet,delayed release (DR/EC) 10 mg PO ONCE 1 Days Qty: 2 0RF Rx Instructions: Take 2 tablets by mouth at 12:00pm the day before your procedure. celecoxib [Celebrex] 200 mg capsule 200 mg PO BID 30 Days Qty: 60 3RF lisinopril 20 mg tablet 20 mg PO DAILY 30 Days Qty: 30 2RF Interventions: ED Discharge Assessment Last Done: 09/10/24 00:45 Discharge Date/Time: 09/10/24 00:45 Print Language: [place]
[2024-09-09 20:58] LABS: MANUAL DIFF FLAG NO
[2024-09-09 20:59] LABS: Basophils Percent Auto 0.3 % (0-2); Eosinophils Absolute Auto 0.1 X10*3/uL (0.0-0.4); Eosinophils Percent Auto 1.7 % (0-4); Hemoglobin 15.3 g/dl (14.0-18.0); Imm Gran Abs Auto 0.02 X10*3/uL (0.00-0.03); Imm Gran Pct Auto 0.3 % (0.0-0.4); Lymphocytes Absolute Auto 2.1 X10*3/uL (1.2-4.9); Lymphocytes Percent Auto 30.2 % (20-40); Mean Corpuscular HGB Conc 36.4 g/dl (31.0-36.0); Mean Corpuscular Hemoglobin 31.9 pg (27.0-33.0); Mean Corpuscular Volume 87.5 fL (80.0-98.0); Mean Platelet Volume 9.3 fL (9.4-12.4); Monocytes Absolute Auto 0.5 X10*3/uL (0.1-1.2); Monocytes Percent Auto 7.4 % (2-11); Neutrophils Absolute Auto 4.2 x10*3/uL (2.0-8.3); Neutrophils Percent Auto 60.1 % (45-73); Platelet Count 214 X10*3/uL (160-400); Red Cell Distribution Width 12.4 % (11.0-16.0); White Blood Count 6.9 X10*3/uL (4.8-10.8)
[2024-09-09 21:19] LABS: Alanine Aminotransferase 24 U/L (0-40); Albumin Level 4.2 g/dL (3.5-5.0); Alkaline Phosphatase 63 U/L (39-117); Anion Gap 13 (12-20); Aspartate Amino Transferase 26 U/L (5-37); Bilirubin Total 0.3 mg/dL (0.0-1.0); Blood Urea Nitrogen 12 mg/dL (9-16); Calcium 8.6 mg/dL (8.4-10.2); Carbon Dioxide 24 mmol/L (22-29); Chloride 107 mmol/L (96-108); Estimated Glomerular Filt Rate > 60; Glucose Random 111 mg/dL (60-115); Lipase 16 U/L (8-78); Magnesium 2.1 mg/dL (1.6-2.6); Potassium 3.7 mmol/L (3.3-5.1); Sodium 140 mmol/L (135-145)
[2024-09-09 22:01] LABS: Appearance Urine Clear; Color Urine Yellow; Glucose Urine UA Negative (Negative); Leukocyte Esterase Urine Negative (Negative); Nitrite Urine Negative (Negative); UMIC TRIGGER UACC YES; Urine Blood Small (1+) (Negative); Urine Ketones Negative (Negative); Urine Protein 300 (3+) mg/dL (Neg-Trace)
[2024-09-09 22:05] LABS: Bacteria Urine None Seen (None Seen); Hyaline Casts Urine 0-2 /LPF (0-2); Squamous Epithelial Cell Urine 0-2 /HPF (0-2); WBC Urine 0-5 /HPF (0-5)
[2024-09-09 22:45] VITALS: BP 172/104; PULSE 90; RESP 18; TEMP 37.1; O2SAT 96
[2024-09-09 23:54] LABS: OBS Int Ctl Valid YES; OBS1 POSITIVE (NEGATIVE)
[2024-09-10 00:39] VITALS: BP 170/105
[2024-09-10] MEDS: amLODIPine Besylate 10 MG TABLET PO (00:39)
[2024-09-10 00:45] VITALS: BP 170/105; PULSE 90; RESP 18; TEMP 37.1; O2SAT 96
== END 2024-09-10 00:45 | disposition home or self-care (01) ==
PROVIDERS: Physician Assistant Medical; Emergency Provider Internal Medicine; PCP Nurse Practitioner Family
DX: K62.5 Hemorrhage of anus and rectum (principal); I10 Essential (primary) hypertension; Z79.899 Other long term (current) drug therapy
CPT/HCPCS: 36415; 80053; 81001; 81003; 82272; 83690; 83735; 85025; 99283

== ENCOUNTER 2024-09-22 13:55 | Outpatient (AMB) | payer OTHER, SELFPAY ==
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
[2024-09-22 14:04] VITALS: BP 160/110; PULSE 96; O2SAT 98; BMI 42.8
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
== END 2024-09-22 15:38 | disposition home or self-care (01) ==
PROVIDERS: PCP Nurse Practitioner Family; Visit Provider Nurse Practitioner Family
DX: G47.30 Sleep apnea, unspecified (principal); G47.10 Hypersomnia, unspecified; R06.83 Snoring; E66.01 Morbid (severe) obesity due to excess calories
CPT/HCPCS: 99204

== ENCOUNTER → 2024-09-22 13:55 | Outpatient (BNVA) | payer OTHER, SELFPAY | PROVIDERS: PCP Nurse Practitioner Family; Visit Provider Nurse Practitioner Family | DX: G47.30 Sleep apnea, unspecified (principal); G47.10 Hypersomnia, unspecified; R06.83 Snoring; E66.01 Morbid (severe) obesity due to excess calories; Z68.42 Body mass index [BMI] 45.0-49.9, adult; Z99.89 Dependence on other enabling machines and devices | CPT/HCPCS: 99202 ==

== ENCOUNTER 2025-02-16 11:43 | Emergency (ER) | payer OTHER, SELFPAY ==
--- NOTE | ~2025-02-16 | XR_ITS ---
EXAMINATION: XR WRIST 3 OR MORE VIEWS RIGHT HISTORY: pain COMPARISON: There are no prior studies available for comparison. FINDINGS: Four views of the right wrist including a scaphoid view are submitted. Osseous mineralization is normal. There is no fracture or dislocation. There is mild degenerative change of the 1st MCP joint of the thumb. The remaining joint spaces are maintained. The soft tissues are unremarkable. XR/XR wrist RT min 3V IMPRESSION: Mild narrowing of the 1st MCP joint. Otherwise unremarkable examination of the right wrist. Electronically signed by: Rick Gonzalez MD 02/16/2025 12:39 PM EDT
--- NOTE | ~2025-02-16 | XR_ITS ---
EXAMINATION: XR ANKLE, RIGHT CLINICAL INFORMATION: pain COMPARISON: None available. TECHNIQUE: AP, lateral, and mortise views of the right ankle. FINDINGS: No fracture, dislocation, or suspicious bone lesion. Normal bone mineralization. Normal alignment. Ankle mortise is intact. Talar dome is preserved. Joint spaces are preserved. No significant arthropathy. No significant ankle joint effusion. Small dorsal and small plantar calcaneal spurs. Normal-appearing soft tissues. XR/XR ankle RT min 3V IMPRESSION: 1. No acute findings right ankle. Electronically signed by: Joseph Lester MD 02/16/2025 12:40 PM EDT
[2025-02-16 12:07] VITALS: BP 197/112; PULSE 88; RESP 18; TEMP 36.6; O2SAT 97; BMI 42.6
--- NOTE | 2025-02-16 12:08 | ED_ITS ---
HPI - General Adult General Chief complaint: Extremity Injury, Lower Stated complaint: Arm & leg pain - fall 3 months ago Time Seen by Provider: 02/16/25 12:49 Source: patient Mode of arrival: ambulatory Limitations: no limitations History of Present Illness ED Provider: Dr. Pérez HPI narrative: 54 year old male PMH: HTN, HLD, arthritis who presents to the ER with Hypertension and is here for ankle and wrist pain. Both on the right side. Has a ganglion cyst to the right wrist. Denies any falls or injuries. Over the weekend pain was worse. He denies taking anything for the pain. Related Data Previous Rx's ?Medication ?Instructions ?Recorded celecoxib 200 mg capsule (Celebrex) 200 mg PO BID 30 days #60 caps 09/08/22 fenofibrate 160 mg tablet 160 mg PO DAILY 30 days #30 tabs 11/02/22 atorvastatin 40 mg tablet (Lipitor) 40 mg PO DAILY #90 tabs 01/05/23 cyclobenzaprine 10 mg tablet 10 mg PO TID PRN muscle spasm #15 01/21/24 tabs ibuprofen 600 mg tablet 600 mg PO Q6H PRN fever or pain 07/26/24 #30 tabs amlodipine 10 mg tablet 10 mg PO DAILY #30 tabs 09/10/24 hydrocortisone acetate 25 mg 25 mg OR BID #12 ea 09/10/24 rectal suppository (Anusol-HC) lisinopril 20 mg tablet 20 mg PO DAILY 30 days #30 tabs 11/19/24 Allergies Allergy/AdvReac Type Severity Reaction Status Date / Time codeine [CODEINE] Allergy Unknown CLAUSTROPHO Verified 02/16/25 12:09 CAMILO Review of Systems Review of Systems: Review of systems: General: Patient denies any fever chills recent illness or falls Musculoskeletal: Denies back pain or body aches or other injuries HEENT: denies headache, runny nose, ear pain Respiratory: denies shortness of breath, cough Cardiovascular: no chest pain or palpitations : denies dysuria, frequency Abdomen: no nausea vomiting denies abdominal pain Extremities: Right wrist and ankle pain Skin: no diaphoresis Yes all other systems are reviewed and are negative PMFSH Past Medical History Medical History Chest pain Hyperlipidemia Annual physical exam Hyperglycemia Rectal bleed Diaphoresis Sleep apnea Abdominal pain Rectal bleeding High cholesterol HTN (hypertension) Surgical History No significant past surgical history Family History Family History Mother Heart valve disease Cancer Brother Diabetes mellitus Social History Social History Household Members: Spouse Household Members Other:: fiance and kids Housing: Other Housing Other:: fci/apt Do you presently have visiting nurse or other home services: No Alcohol intake: never Patient Tobacco Use Status: Current everyday Tobacco user Cigarettes Per Day: 6 Years Smoked: 30 Smoked in Last 30 Days: No e-Cigarette/Vaping Use: Never Used Second Hand Smoke Exposure: No Advance Directives: No Advance Directives Information Provided: Yes Do you have a plan to hurt others: No Plan service: No Current occupational status: unemployed Current occupational exposures/hazards: No Cognitive needs: No Hearing needs: No Vision needs: Yes Physical Exam ED Vital Signs: Vital Signs - 24 hr 02/16/25 12:07 Temperature 97.8 F Pulse Rate 88 Respiratory Rate 18 Blood Pressure 197/112 H Pulse Oximetry 97 Oxygen Delivery Method Room Air BMI result Body Mass Index 42.6 General: Well-appearing well-nourished in no signs of distress HEENT: Normocephalic atraumatic Neck: No signs of JVD, no masses no tenderness or lymphadenopathy Cardiovascular: Regular rate and rhythm Respiratory: Clear to auscultation bilaterally Abdomen: Soft nontender no masses Extremities: patient has no pain at the anatomical snuffbox isn't be able to make the okay sign extend his wrist and separate his fingers of the knee difficulty 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 He reports falling a couple of months ago. His pain got worse over the last couple of weeks. He reports standing all day causing his right ankle and foot pain to be worse. On exam he appears to have a ganglion cyst in the right ventral wrist. plan for x-rays of the right wrist and ankle Medical Decision Making Medical Decision Making [facility] Narrative: you think this is just a ganglion cyst as well as ankle pain there was nothing acute see x-rays are normal patient has not tried conservative therapy we will give Tylenol ibuprofen I will send the patient home with PCP follow up. Differential Diagnosis Differential Diagnoses: The differential diagnosis associated with the presentation includes patient with a ganglion cyst of his right wrist and ankle pain nothing acute has had the pain for over a month x-rays were done in triage Discharge Plan Discharge Clinical Impression: Ganglion cyst of dorsum of right wrist, Muscle strain of right ankle Patient Disposition: Home, Self-Care Instructions: Ganglion Cyst (ED), Ankle Strain (ED) Additional Instructions: You were seen today for wrist and ankle pain You had normal XR's. You an take tylenola and ibuprofen. Please call to follow up with the Orthopedic doctor. Prescriptions: No Action fenofibrate 160 mg tablet 160 mg PO DAILY 30 Days Qty: 30 0RF atorvastatin [Lipitor] 40 mg tablet 40 mg PO DAILY Qty: 90 1RF Rx Instructions: Schedule next PCP appt for more refills lisinopril 20 mg tablet 20 mg PO DAILY 30 Days Qty: 30 0RF cyclobenzaprine 10 mg tablet 10 mg PO TID PRN (Reason: muscle spasm) Qty: 15 0RF ibuprofen 600 mg tablet 600 mg PO Q6H PRN (Reason: fever or pain) Qty: 30 0RF hydrocortisone acetate [Anusol-HC] 25 mg suppository 25 mg OR BID Qty: 12 0RF amlodipine 10 mg tablet 10 mg PO DAILY Qty: 30 0RF celecoxib [Celebrex] 200 mg capsule 200 mg PO BID 30 Days Qty: 60 3RF Referrals: Geovanny Dee MD [Physician] - (Please call to follow up for your ankle and wrist) Stand Alone Forms: Work/School Release Print Language: Hebrew
[2025-02-16] MEDS: Acetaminophen 325 MG TABLET 650 MG PO (13:31)
[2025-02-16] MEDS: Ibuprofen 400 MG TABLET PO (13:31)
[2025-02-16 13:43] VITALS: BP 197/112; PULSE 88; RESP 18; TEMP 36.6; O2SAT 97
== END 2025-02-16 13:45 | disposition home or self-care (01) ==
PROVIDERS: Emergency Provider Student in an Organized Health Care Education/Training Program; PCP Nurse Practitioner Family
DX: M67.431 Ganglion, right wrist (principal); S96.911A Strain of unspecified muscle and tendon at ankle and foot level, right foot, initial encounter; X58.XXXA Exposure to other specified factors, initial encounter; M25.531 Pain in right wrist; M25.571 Pain in right ankle and joints of right foot; I10 Essential (primary) hypertension; E78.5 Hyperlipidemia, unspecified; Y93.9 Activity, unspecified; Y92.9 Unspecified place or not applicable; Y99.9 Unspecified external cause status
CPT/HCPCS: 73110; 73610; 99283; 99284

== ENCOUNTER → 2025-02-16 12:08 | Outpatient (BNV) | payer OTHER, SELFPAY | PROVIDERS: Emergency Provider Student in an Organized Health Care Education/Training Program; PCP Nurse Practitioner Family; Visit Provider Radiology Diagnostic Radiology | DX: M25.571 Pain in right ankle and joints of right foot (principal); M25.531 Pain in right wrist | CPT/HCPCS: 73110; 73610 ==

== ENCOUNTER 2025-03-09 13:52 | Outpatient (AMB) | payer OTHER, SELFPAY ==
[2025-03-09 14:10] VITALS: BMI 42.6
--- NOTE | 2025-03-09 14:10 | MHC.OFFVIS ---
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 States he 1st noticed it about 8 months ago, states he was playing with it and he accidentally ruptured it, then another started to grow about 3 days later. It has increase in size and it has turn hard. He has bilateral numbness and tingling for the last 3 years and now it is constant. No EMG done. He also mentioned he fell about 4 months ago on to his elbow and he feels a lump above his elbow that he did not have before. Allergies codeine [CODEINE] Allergy (Unknown, Verified 03/09/25 14:12) CLAUSTROPHOBIA [facility] Medical History Chest pain Hyperlipidemia Annual physical exam Hyperglycemia Rectal bleed Diaphoresis Sleep apnea Abdominal pain Rectal bleeding High cholesterol HTN (hypertension) Surgical History No significant past surgical history Family History Mother Heart valve disease Cancer Brother Diabetes mellitus Social History (Updated 03/09/25 @ 14:15 by JOSIE Nunez) Household Members: Spouse Household Members Other:: fiance and kids Housing: Other Housing Other:: alf/apt Do you presently have visiting nurse or other home services: No Alcohol intake: never Patient Tobacco Use Status: Current everyday Tobacco user Cigarettes Per Day: 6 Years Smoked: 30 e-Cigarette/Vaping Use: Never Used Second Hand Smoke Exposure: No service: No Current occupational status: employed 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 The cyst is about 1 cm in size and situated on the volar and radial aspect of the right wrist. It has not ruptured and has consistently caused discomfort, particularly when engaging in his occupational activities involving repetitive hand use. The patient reports numbness and tingling in the right hand upon waking, which could suggest nerve involvement possibly related to carpal tunnel syndrome, though this remains unconfirmed without further diagnostics. He has had a previous instance of a ganglion cyst that ruptured, but the current cyst is intact. The patient denies pertinent medical conditions such as diabetes and heart disease, takes medication for blood pressure, and uses a CPAP machine for sleep apnea. 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 Review of Systems - Musculoskeletal: Reports discomfort from the right volar wrist ganglion cyst. Reports numbness and tingling in the right hand in the mornings. - Neurological: Reports numbness and tingling in the right hand upon waking. - Cardiovascular: Denies any heart conditions. - Endocrine: Denies diabetes. - Sleep: Reports snoring and use of CPAP for sleep apnea. Systems reviewed and are negative except as per HPI and below Physical Exam - Musculoskeletal- Right wrist exhibits a 1 cm ganglion cyst on the volar and radial aspect, non-tender on palpation. Results Procedure - Informed consent was obtained for right volar wrist ganglion cyst excision under general anesthesia. Risks, benefits, and alternatives were discussed with the patient. The patient agreed to proceed with surgery. Plan The patient will undergo excision of the right volar wrist ganglion cyst under general anesthesia. Detailed post-operative care was discussed, including keeping the initial dressing dry, removing sutures at the two-week troy, and refraining from activities that may compromise healing. A follow-up EMG and nerve conduction study is planned to evaluate symptoms suggestive of carpal tunnel syndrome post-surgery. The patient was made aware of all risks and benefits, and consent for the procedure was obtained. I educated the patient about the condition. I discussed both operative and nonoperative treatment options. The patient would like to proceed with surgery. The risks and benefits of operative treatment were discussed with the patient and the patient wishes to proceed with surgery. These risks include, but are not limited to, risk of damage to blood vessels, nerves, tendons, infection, recurrence, incomplete relief of preoperative symptoms, persistent pain, possible need for further surgery, and the risks associated with regional blocks and/or anesthesia. Plan is to take the patient to the operating room at some point in the next few weeks for the following procedures: 1. Right volar wrist ganglion excision under general All of the preoperative paperwork including the consent was discussed today. All of the patient's questions were answered in the clinic today. The patient understands that they will be in contact with our concrete pump operator helper to discuss scheduling their procedure. Patient denies diabetes, blood thinners, asthma, heart issues, lung issues, kidney issues, or current smoking. Patient was informed and verbally consented to the use of an ambient scribe for clinic note documentation during this visit. Discussion Notes I discussed with the patient the diagnosis of a right volar wrist ganglion cyst and the elective nature of surgical intervention due to the cyst's discomfort and size. Surgical excision, which involves general anesthesia, was recommended because of the cyst's front location near important nerves and vessels, rendering aspiration risky. I explained the recovery timeline, risks of surgery including infection, and the possibility of the cyst not being removable if ruptured prior to surgery. Follow-up care includes monitoring the incision site, and lifestyle modifications to avoid compromising surgical outcomes. The patient agreed to proceed with surgery after understanding the potential benefits and risks. Patient Instructions - Post-surgery, keep the bulky dressing on the wrist for five days. Do not get it wet. - Avoid underwater activities (hot tubs, baths, pools) for the first three weeks post-op. - Remove the sutures at two weeks during the follow-up appointment. - Limit lifting to items no heavier than a cell phone for four weeks. - Expect a phone call soon to schedule the surgery. - Contact the clinic if there are signs of infection or unexpected changes post-operatively. Coding Level of Care Code New Pt Level 4 (84227) Diagnoses Ganglion cyst of volar aspect of right wrist M67.431
--- OUTSIDE RECORDS SUMMARY | 2025-03-09 15:07 | XMS_ITS | Clinical Summary ---
Author Organization [facility] Address [address] [place] [address] Care Team Providers Care Human Factors Specialist Name Role Phone Unavailable Primary Care Provider Unavailabl e Surgical History Surgery Date Site/Laterality Comments OTHER SURGICAL HISTORY PROCEDURE: DENIES PREVIOUS SURGERY Medical History Medical History Date Comments Tobacco abuse 01/25/2018 DX:Tobacco abuse History of alcohol abuse 01/25/2018 DX:Hist ory of alcohol abuse; COMMENT: Slowed down 2017 Essential hypertension 01/14/2018 DX:Essent ial hypertension Obesity (BMI 30-39.9) 01/14/2018 DX:Obesity (BMI 30-39.9) Pure hypercholesterolemia 01/14/2018 DX:Pur e hypercholesterolemia Family History Medical History Relation Name Comments Diabetes Brother Hypertension Father diabetes Ovarian cancer Mother in 60s Other: high cholesterol Sister Relation Name Status Comments Brother Father Alive Mother Sister Social History Tobacco Use Types Packs/Day Years Used Date Smoking Tobacco: Every Day Cigarettes Smokeless Tobacco: Never Alcohol Use Standard Drinks/Week Comments No 0 (1 standard drink = 0.6 oz pur e alcohol) Sex and Gender Information Value Date Recorded Sex Assigned at Not on file Legal Sex Male 7:34 PM EST Gender Identity Not on file Sexual Orientation Not on file Obstetrics History Plan of Treatment Health Maintenance Due Date Last Done Comments DTaP,Tdap,and Td Vaccines (1 - Tdap) 1989 Hepatitis B Vaccines (1 of 3 - 19+ 3-dose series) 1989 Pneumococcal Vaccine: 50+ Ye ars (1 of 2 - PCV) 1989 Pneumococcal Vaccine: Pediat rics (0 to 5 Years) and At-Risk Patients (6 to 64 Years) (1 of 2 - PCV) 1989 Zoster Vaccines (1 of 2) 2020 Cholesterol Screening (Lipid Panel) 09/09/2022 Colorectal Cancer Screening: Colonoscopy 09/09/2022 Depression Screening 09/09/2022 HIV Screening 09/09/2022 Hepatitis C Screening 09/09/2022 Social Influencers of Health Screening 09/09/2022 Hypertension/CHF/CAD Annual BMP Blood Test 09/20/2022 COVID-19 Vaccine ( - 2023-2 5 season) 2024 Influenza Vaccine (Season Ended) 2025 HIB Vaccines Aged Out No longer eligi ble based on patient's age to complete this topic HPV Vaccines Aged Out No longer eligi ble based on patient's age to complete this topic Hepatitis A Vaccines Aged Out No long er eligible based on patient's age to complete this topic IPV Vaccines Aged Out No longer eligi ble based on patient's age to complete this topic MMR Vaccines Aged Out No longer eligi ble based on patient's age to complete this topic Meningococcal ACWY Vaccine Aged Out N o longer eligible based on patient's age to complete this topic Meningococcal B Vaccine Aged Out No l onger eligible based on patient's age to complete this topic RSV Immunization Patients Un shade 20 months Aged Out No longer eligible b ased on patient's age to complete this topic Varicella Vaccines Aged Out No longer eligible based on patient's age to complete this topic
== END 2025-03-09 14:29 | disposition home or self-care (01) ==
LOC: HO.HOS 13:53
PROVIDERS: PCP Nurse Practitioner Family
DX: M67.431 Ganglion, right wrist (principal)
CPT/HCPCS: 99204

== ENCOUNTER → 2025-03-09 13:52 | Outpatient (BNVA) | payer OTHER, SELFPAY | PROVIDERS: PCP Nurse Practitioner Family | DX: M67.431 Ganglion, right wrist (principal) | CPT/HCPCS: 99202 ==

== ENCOUNTER 2025-03-24 21:12 | Emergency (ER) | payer OTHER, SELFPAY ==
--- NOTE | ~2025-03-24 | XR_ITS ---
CLINICAL HISTORY: COUGH 2 view chest x-ray. Comparison: None Findings: The lungs are adequately expanded. No focal consolidation. No effusion or pneumothorax. Cardiac and mediastinal contours are within normal limits. No acute osseous abnormality Impression: No acute process. This document has been electronically signed by: Edward Al MD on 03/24/2025 22:59:03
[2025-03-24 21:46] VITALS: BP 175/94; PULSE 85; RESP 18; TEMP 36.9; O2SAT 96; BMI 38.9
--- NOTE | 2025-03-24 21:46 | ED_ITS ---
HPI - URI/Sore Throat General Chief Complaint: Upper Respiratory Symptoms Stated Complaint: Coughing/SOB Time Seen by Provider: 03/24/25 23:59 Source: patient and old records reviewed Mode of arrival: ambulatory Limitations: no limitations History of Present Illness ED Provider: FIDEL FRENCH Narrative: 54 yo male with PMH of HTN, obesity, GERD here with c/o URI symptoms cough, runny nose and not feeling well with sick contact in his mom's kids. He has not had fevers. He has no v/d. He has had mild chest tightness. He feels like when he is sleeping he is gasping when he wakes up. He denies travel or recent procedures. He smokes but has never had asthma. MD elicited complaint: cough and rhinorrhea Onset (ago): day(s) (2) Consistency: constant Severity: moderate Description of mucous: clear Able to tolerate fluids by mouth: Yes Exacerbating factors: supine positioning Relieving factors: nothing Context: sick contacts Associated symptoms: chills, rhinorrhea, cough and shortness of breath Treatments prior to arrival: none Related Data Previous Rx's ?Medication ?Instructions ?Recorded celecoxib 200 mg capsule (Celebrex) 200 mg PO BID 30 days #60 caps 09/08/22 fenofibrate 160 mg tablet 160 mg PO DAILY 30 days #30 tabs 11/02/22 atorvastatin 40 mg tablet (Lipitor) 40 mg PO DAILY #90 tabs 01/05/23 cyclobenzaprine 10 mg tablet 10 mg PO TID PRN muscle spasm #15 01/21/24 tabs ibuprofen 600 mg tablet 600 mg PO Q6H PRN fever or pain 07/26/24 #30 tabs amlodipine 10 mg tablet 10 mg PO DAILY #30 tabs 09/10/24 hydrocortisone acetate 25 mg 25 mg MO BID #12 ea 09/10/24 rectal suppository (Anusol-HC) lisinopril 20 mg tablet 20 mg PO DAILY 90 days #90 tabs 03/16/25 azithromycin 250 mg tablet See Rx Instructions PO .COMPLEX #6 03/25/25 tabs prednisone 20 mg tablet 40 mg (2 x 20 mg) PO DAILY 5 days 03/25/25 #10 tabs Allergies Allergy/AdvReac Type Severity Reaction Status Date / Time codeine [CODEINE] Allergy Unknown CLAUSTROPHO Verified 03/24/25 21:49 CAMILO Review of Systems 2 Review of Systems: Constitutional : No Fever, No Chills ENT/Mouth : No Hoarseness, No sore throat, pos Rhinorrhea Eyes: No Redness, No Discharge, No Vision Changes Cardiovascular : No Chest Pain, positive SOB, no Dyspnea on Exertion, No Edema Respiratory : positive Cough, pos Sputum, positive Wheezing, Gastrointestinal : No Nausea, No Vomiting, No Diarrhea, No abdominal Pain Genitourinary : No Dysuria, No Hematuria Musculoskeletal : No joint pain, No Myalgias Skin : No rash Neuro : No Weakness, No Numbness, No Headache All other systems reviewed and are negative [facility] Past Medical History Attestation statement: The following information was validated with the patient. Source: old records reviewed Medical History Chest pain Hyperlipidemia Annual physical exam Hyperglycemia Rectal bleed Diaphoresis Sleep apnea Abdominal pain Rectal bleeding High cholesterol HTN (hypertension) Surgical History No significant past surgical history Family History Family History Mother Heart valve disease Cancer Brother Diabetes mellitus Social History Social History Household Members: Spouse Household Members Other:: fiance and kids Housing: Other Housing Other:: correction/apt Do you presently have visiting nurse or other home services: No Alcohol intake: never Patient Tobacco Use Status: Current everyday Tobacco user Cigarettes Per Day: 6 Years Smoked: 30 e-Cigarette/Vaping Use: Never Used Second Hand Smoke Exposure: No service: No Current occupational status: employed 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 Oriented X3. No acute distress. Eyes: Pupils equal, round and reactive to light. ENT: Pharynx normal. Neck: Normal inspection. Neck supple. CVS: Normal heart rate and rhythm. Pulses normal. Respiratory: No respiratory distress. Breath sounds mild anterior rhonchi Abdomen: Soft and nontender. Skin: Skin warm and dry. Normal skin color. Extremities: No lower extremity edema. Neuro: Oriented X 3. No motor deficit. No sensory deficit. CN2-12 intact Course Course Course Narrative: 54 yo male with PMH of HLD, GERD who notes on Sunday he started with tight chest and a congested cough he cannot clear. No fevers, feels slight chest pain. He denies recent travel, procedure. His kids mom has bronchitis. He notes he has no hx of asthma. He states everyone at work had the flu. No n/v/d. At this time will obtain labs, CXR, EKG, trop x 1, viral panel. this is a RAPID medical screening exam the rest of the history and physical exam is to be done by the main provider. FIDEL 03/24/25 948pm. Medical Decision Making Medical Decision Making [facility] Narrative: 54 yo male with PMH of HTN, obesity, GERD here with c/o at this time he is not toxic has some rhonchi on exam symptoms present > 24 hours he will need labs, EKG, CXR, viral panel. He is well appearing and has normal O2 sats. I suspect he has bronchitis, CAP, viral syndrome. He has no signs of CHF on exam. He has no risk factors for VTE. He has no overt chest pain to suggest ACS either. Differential Diagnosis Differential Diagnoses: The differential diagnosis associated with the presentation includes bronchitis, URI, viral syndrome Admission/Observation Consideration of admission/observation: Escalation of care including admission/observation considered not toxic no hypoxia not labored tolerating PO Lab Data [facility] Lab Attestation statement: I reviewed the patient's lab results. 03/24/25 22:01 03/24/25 22:01 Labs: Lab Results 03/24/25 Range/Units 22:01 WBC 7.1 (4.8-10.8) X10*3/uL RBC 4.74 (4.60-5.80) X10*6/uL Hgb 14.9 (14.0-18.0) g/dl Hct 41.8 L (42.0-52.0) % MCV 88.2 (80.0-98.0) fL MCH 31.4 (27.0-33.0) pg MCHC 35.6 (31.0-36.0) g/dl RDW 12.6 (11.0-16.0) % Plt Count 221 (160-400) X10*3/uL MPV 9.8 (9.4-12.4) fL Immature Gran % (Auto) 0.6 H (0.0-0.4) % Neut % (Auto) 56.6 (45-73) % Lymph % (Auto) 32.4 (20-40) % Sharkey % (Auto) 7.6 (2-11) % Eos % (Auto) 2.5 (0-4) % Baso % (Auto) 0.3 (0-2) % Lymph # (Auto) 2.3 (1.2-4.9) X10*3/uL Sharkey # (Auto) 0.5 (0.1-1.2) X10*3/uL Eos # (Auto) 0.2 (0.0-0.4) X10*3/uL Baso # (Auto) 0.0 (0.0-0.2) X10*3/uL Abs Immat Gran (auto) 0.04 H (0.00-0.03) X10*3/uL Absolute Neuts (auto) 4.1 (2.0-8.3) x10*3/uL Absolute Nucleated RBC 0.000 (0.0-0.012) X10*3/uL Nucleated RBC % (auto) 0.0 (0.0-0.2) /100WBC Sodium 144 (135-145) mmol/L Potassium 3.5 (3.3-5.1) mmol/L Chloride 109 H (96-108) mmol/L Carbon Dioxide 26 (22-29) mmol/L Anion Gap 13 (12-20) BUN 18 H (9-16) mg/dL Creatinine 0.95 (0.5-1.4) mg/dL Estim Creat Clear Calc 106.5 Estimated GFR > 60 Random Glucose 104 (60-115) mg/dL Calcium 9.0 (8.4-10.2) mg/dL Magnesium 2.1 (1.6-2.6) mg/dL Total Bilirubin 0.2 (0.0-1.0) mg/dL Direct Bilirubin < 0.2 (0.0-0.5) mg/dL AST 26 (5-37) U/L ALT 26 (0-40) U/L Alkaline Phosphatase 79 (39-117) U/L Troponin I High Sens 27.0 D (<3.5-35.0) ng/L B-Natriuretic Peptide 45 (<100) pg/mL Total Protein 7.0 (6.5-8.0) g/dL Albumin 4.3 (3.5-5.0) g/dL Influenza Type A (PCR) NEGATIVE (Negative) Influenza Type B (PCR) NEGATIVE (Negative) RSV RNA Qual (PCR) NEGATIVE (Negative) SARS-CoV-2 RNA (RT-PCR) NEGATIVE (Negative) Independent Interpretation I performed an independent interpretation of an: Plain X-Ray (normal no pneumonia) Radiology Impression Discussion of test interpretation with radiology: I have reviewed the radiologist's reading. External Record Review External record reviewed: Outpatient record Prescription Management I considered prescription management with: Antibiotic and Other Discharge Plan Discharge Clinical Impression: Bronchitis Patient Disposition: Home, Self-Care Instructions: Acute Bronchitis (ED) Additional Instructions: normal chest xray negative for covid, flu, rsv labs reassuring return for any worsening symptoms or concerns rest and stay hydrated can use your albuterol inhaler 2 puffs every 4 hours as needed for wheezing/shortness of breath Prescriptions: New azithromycin 250 mg tablet See Rx Instructions .ROUTE .COMPLEX Qty: 6 0RF Rx Instructions: For 250 mg dose pack: take 500 mg today (day 1), then 250 mg for 4 days (days 2-5) prednisone 20 mg tablet 40 mg PO DAILY 5 Days Qty: 10 0RF No Action fenofibrate 160 mg tablet 160 mg PO DAILY 30 Days Qty: 30 0RF atorvastatin [Lipitor] 40 mg tablet 40 mg PO DAILY Qty: 90 1RF Rx Instructions: Schedule next PCP appt for more refills lisinopril 20 mg tablet 20 mg PO DAILY 90 Days Qty: 90 0RF cyclobenzaprine 10 mg tablet 10 mg PO TID PRN (Reason: muscle spasm) Qty: 15 0RF ibuprofen 600 mg tablet 600 mg PO Q6H PRN (Reason: fever or pain) Qty: 30 0RF hydrocortisone acetate [Anusol-HC] 25 mg suppository 25 mg MO BID Qty: 12 0RF amlodipine 10 mg tablet 10 mg PO DAILY Qty: 30 0RF celecoxib [Celebrex] 200 mg capsule 200 mg PO BID 30 Days Qty: 60 3RF Stand Alone Forms: Work/School Release Print Language: Croatian
--- NOTE | 2025-03-24 21:48 | ECG_ITS ---
Test Reason : CHEST PAIN Blood Pressure : */* mmHG Vent. Rate : 82 BPM Atrial Rate : 82 BPM P-R Int : 170 ms QRS Dur : 116 ms QT Int : 380 ms P-R-T Axes : 55 55 145 degrees QTcB Int : 443 ms Normal sinus rhythm Minimal voltage criteria for LVH, may be normal variant ( Bi product ) T wave abnormality, consider lateral ischemia Abnormal ECG When compared with ECG of 26-Jul-2024 20:20, No significant change was found Referred By: Yumiko Brown Electronically Signed By: Jorge Chery
[2025-03-24 22:05] LABS: MANUAL DIFF FLAG NO
[2025-03-24 22:06] LABS: Basophils Percent Auto 0.3 % (0-2); Eosinophils Absolute Auto 0.2 X10*3/uL (0.0-0.4); Eosinophils Percent Auto 2.5 % (0-4); Hematocrit 41.8 % (42.0-52.0); Hemoglobin 14.9 g/dl (14.0-18.0); Imm Gran Abs Auto 0.04 X10*3/uL (0.00-0.03); Imm Gran Pct Auto 0.6 % (0.0-0.4); Lymphocytes Absolute Auto 2.3 X10*3/uL (1.2-4.9); Lymphocytes Percent Auto 32.4 % (20-40); Mean Corpuscular HGB Conc 35.6 g/dl (31.0-36.0); Mean Corpuscular Hemoglobin 31.4 pg (27.0-33.0); Mean Corpuscular Volume 88.2 fL (80.0-98.0); Mean Platelet Volume 9.8 fL (9.4-12.4); Monocytes Absolute Auto 0.5 X10*3/uL (0.1-1.2); Monocytes Percent Auto 7.6 % (2-11); Neutrophils Absolute Auto 4.1 x10*3/uL (2.0-8.3); Neutrophils Percent Auto 56.6 % (45-73); Platelet Count 221 X10*3/uL (160-400); Red Blood Count 4.74 X10*6/uL (4.60-5.80); Red Cell Distribution Width 12.6 % (11.0-16.0); White Blood Count 7.1 X10*3/uL (4.8-10.8)
[2025-03-24 22:29] LABS: Alanine Aminotransferase 26 U/L (0-40); Albumin Level 4.3 g/dL (3.5-5.0); Alkaline Phosphatase 79 U/L (39-117); Anion Gap 13 (12-20); Aspartate Amino Transferase 26 U/L (5-37); Bilirubin Direct < 0.2 mg/dL (0.0-0.5); Bilirubin Total 0.2 mg/dL (0.0-1.0); Blood Urea Nitrogen 18 mg/dL (9-16); Carbon Dioxide 26 mmol/L (22-29); Chloride 109 mmol/L (96-108); Creatinine Clr Calc Pharmacy 106.5; Estimated Glomerular Filt Rate > 60; Glucose Random 104 mg/dL (60-115); Magnesium 2.1 mg/dL (1.6-2.6); Potassium 3.5 mmol/L (3.3-5.1); Sodium 144 mmol/L (135-145)
[2025-03-24 22:39] LABS: B Type Natriuretic Peptide 45 pg/mL (<100)
[2025-03-24 22:42] LABS: Influenza A PCR NEGATIVE (Negative); Influenza B PCR NEGATIVE (Negative); Resp Syncy Virus RNA Qual PCR NEGATIVE (Negative); SARS COV2 PCR INHOUSE NEGATIVE (Negative)
[2025-03-25] MEDS: Albuterol Sulfate 90 MCG 8 GM INHALER 2 PUFF INHALE (00:29)
[2025-03-25 00:35] VITALS: BP 0/0; PULSE 0; RESP 0; TEMP -17.7; TEMP 0; O2SAT 0
== END 2025-03-25 00:36 | disposition home or self-care (01) ==
LOC: HO.ED 03-25 00:34
PROVIDERS: Emergency Provider Emergency Medicine; PCP Nurse Practitioner Family
DX: J40 Bronchitis, not specified as acute or chronic (principal); Z03.818 Encounter for observation for suspected exposure to other biological agents ruled out; R05.9 Cough, unspecified; R06.02 Shortness of breath; I10 Essential (primary) hypertension; E78.5 Hyperlipidemia, unspecified; F17.210 Nicotine dependence, cigarettes, uncomplicated; Z79.899 Other long term (current) drug therapy; Z79.02 Long term (current) use of antithrombotics/antiplatelets
CPT/HCPCS: 0241U; 71046; 80048; 80076; 83735; 83880; 84484; 85025; 93005; 99283; 99284

== ENCOUNTER → 2025-03-24 21:48 | Outpatient (BNV) | payer OTHER, SELFPAY | PROVIDERS: Emergency Provider Emergency Medicine; PCP Nurse Practitioner Family; Visit Provider Internal Medicine Cardiovascular Disease | DX: R94.31 Abnormal electrocardiogram [ECG] [EKG] (principal); R07.9 Chest pain, unspecified | CPT/HCPCS: 93010 ==

== ENCOUNTER → 2025-03-24 21:49 | Outpatient (BNV) | payer OTHER, SELFPAY | PROVIDERS: PCP Nurse Practitioner Family; Visit Provider Radiology Vascular & Interventional Radiology | DX: R05.9 Cough, unspecified (principal) | CPT/HCPCS: 71046 ==

== ENCOUNTER 2025-04-29 12:56 | Outpatient (AMB) | payer OTHER, SELFPAY ==
--- OUTSIDE RECORDS SUMMARY | 2025-04-29 13:23 | XMS_ITS | Clinical Summary ---
Author Organization [facility] Address [address] [place] [id number] Phone Care Team Providers Care Pershing Missile Crewmember Name Role Phone Sherita Santiago HOTEL RECEPTIONIST Primary Care Provider Chaya vailable Allergies No known active allergies Medications No known medications Active Problems No known active problems Social History Tobacco Use Types Packs/Day Years Used Date Smoking Tobacco: Never Assessed Education Answer Date Recorded Are you interested in more education? Not on laureano e 10/16/2024 Are you concerned about learning? Not on file 10/16/2024 No 10/16/2024 No 10/16/2024 Digital Access Answer Date Recorded No 10/16/2024 No 10/16/2024 Reliable internet access at home? Not on file 10/16/2024 Device with a working camera? Not on file Sex and Gender Information Value Date Recorded Sex Assigned at Not on file Legal Sex Male 10:30 AM EST Gender Identity Not on file Sexual Orientation Not on file Last Filed Vital Signs Vital Sign Reading Time Taken Comments Blood Pressure 184/114 10/16/2024 12:25 PM EST Pulse 84 10/16/2024 12:25 PM EST Temperature - - Respiratory Rate 16 10/16/2024 12:25 PM EST Oxygen Saturation 100% 10/16/2024 12:25 PM EST Inhaled Oxygen Concentration - - Weight - - Height - - Body Mass Index - - Plan of Treatment Health Maintenance Due Date Last Done Comments Adult Td,Tdap Booster 1970 LIPID PANEL 1970 DEPRESSION SCREENING 1982 SMOKING Hx and SMOKELESS TOB ACCO SCREENING 1983 HEPATITIS C SCREENING 1988 HIV ONE-TIME SCREENING (18-6 5 YEARS) 1988 COLOGUARD 2015 COLONOSCOPY 2015 COLORECTAL CANCER SCREENING 2015 FIT TEST 2015 FOBT 2015 SIGMOIDOSCOPY 2015 VIRTUAL COLONOSCOPY 2015 PNEUMOCOCCAL VACCINES (50+ y ears) (1 of 1 - PCV) 2020 ZOSTER VACCINES (1 of 2) 2020 COVID-19 VACCINE (1 - 2023-2 5 season) 2024 HEPATITIS A VACCINES Aged Out No long er eligible based on patient's age to complete this topic HIB VACCINES Aged Out No longer eligi ble based on patient's age to complete this topic MENINGOCOCCAL VACCINES (ACWY) Aged Out No longer eligible based on patient's age to complete this topic MENINGOCOCCAL VACCINES (B) Aged Out N o longer eligible based on patient's age to complete this topic Medical Devices Not on file Insurance [facility] ACO [facility] [id number] [place] [address] ACO [facility] A[facility] ACO Care Teams Pershing Missile Crewmember Relationship Specialty Start Date End Date Sherita Santiago NP PCP - General 10/16/24 Additional Source Comments The information contained in this document represents components of the legal health record. It is not the complete legal health record.[facility]
--- OUTSIDE RECORDS SUMMARY | 2025-04-29 13:23 | XMS_ITS | Clinical Summary ---
Author Organization [facility] Address [address] [place] [address] Care Team Providers Care Mooner Name Role Phone Unavailable Primary Care Provider [...] Pneumococcal Vaccine: 50+ Ye ars (1 of 1 - PCV) 2020 Zoster Vaccines (1 of 2) 2020 COVID-19 Vaccine (2023-2 5 season) 2024 Depression Screening 10/08/2024 Influenza Vaccine (#1) 2025 HIB Vaccines Aged Out No longer [...]
--- NOTE | 2025-04-29 13:41 | MHC.OFFVIS ---
Vital Signs 04/29/25 13:42 Height 5 ft 7 in Weight 248 lb BMI 38.8 BP 192/116 H Blood Pressure Location Rt brachial Position Sitting Pulse 67 Pulse Source Pulse Oximeter Pulse Oximetry (%) 97 Oxygen Delivery Method Room Air Intake Visit Reasons: Preop RT VWG exc 05/04/25 AR Intake Note: River is a 54 year old male who presents today for a Pre-Operative appointment - He is scheduled for a Right Volar Wrist Ganglion Cyst Excision 05/04/25 with AR. Allergies codeine (CODEINE) Allergy (Unknown, Verified 05/01/25 13:38) CLAUSTROPHOBIA HPI HPI Preop RT VWG exc 05/04/25 AR: Details: Rivre is a 54 year old male who presents today for a Pre-Operative appointment - He is scheduled for a Right Volar Wrist Ganglion Cyst Excision 05/04/25 with AR. Patient states that his symptoms have remained consistent since previous evaluation, and he would like to still proceed with surgery. [facility] Medical History Chest pain Hyperlipidemia Annual physical exam Hyperglycemia Rectal bleed Diaphoresis Sleep apnea Abdominal pain Rectal bleeding High cholesterol HTN (hypertension) Surgical History No significant past surgical history Family History Mother Heart valve disease Cancer Brother Diabetes mellitus Social History Household Members: Spouse Household Members Other:: fiance and kids Housing: Other Housing Other:: skilled nursing/apt Do you presently have visiting nurse or other home services: No Alcohol intake: never Patient Tobacco Use Status: Current everyday Tobacco user Cigarettes Per Day: 6 Years Smoked: 30 e-Cigarette/Vaping Use: Never Used Second Hand Smoke Exposure: No service: No Current occupational status: employed 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 Neuro: Normal sensation of the tips of all digits of the right hand at this time Vascular: Cap refill brisk Pain: No tenderness to palpation about the ganglion cyst of the right wrist Range of motion of the right hand and wrist painless ROM: Patient is able to make a closed fist and extend all digits of the right hand fully Skin: No lacerations or abrasions. General: There is an approximately 1 cm in diameter mass noted on the volar and radial aspect of the right wrist, unchanged from previous evaluation No ecchymosis, erythema, or evidence of infection. Psych: Appears grossly normal Affect normal Attitude cooperative Assessment & Plan Assessment & Plan (1) Ganglion cyst of volar aspect of right wrist: Code(s): M67.431 - Ganglion, right wrist Category: Medical Plan Plan The patient will undergo excision of the right volar wrist ganglion cyst under general anesthesia. Detailed post-operative care was discussed, including keeping the initial dressing dry, removing sutures at the two-week troy, and refraining from activities that may compromise healing. A follow-up EMG and nerve conduction study is planned to evaluate symptoms suggestive of carpal tunnel syndrome post-surgery. The patient was made aware of all risks and benefits, and consent for the procedure was obtained. I educated the patient about the condition. I discussed both operative and nonoperative treatment options. The patient would like to proceed with surgery. The risks and benefits of operative treatment were discussed with the patient and the patient wishes to proceed with surgery. These risks include, but are not limited to, risk of damage to blood vessels, nerves, tendons, infection, recurrence, incomplete relief of preoperative symptoms, persistent pain, possible need for further surgery, and the risks associated with regional blocks and/or anesthesia. Plan is to take the patient to the operating room at some point in the next few weeks for the following procedures: 1. Right volar wrist ganglion excision under general All of the preoperative paperwork including the consent was discussed today. All of the patient's questions were answered in the clinic today. The patient understands that they will be in contact with our surgical nurse practitioner to discuss scheduling their procedure. Patient denies diabetes, blood thinners, asthma, heart issues, lung issues, kidney issues, or current smoking. Coding Level of Care Code Est Pt Level 4 (60448) Diagnoses Ganglion cyst of volar aspect of right wrist M67.431
[2025-04-29 13:42] VITALS: BP 192/116; PULSE 67; O2SAT 97; BMI 38.8
== END 2025-04-29 14:03 | disposition home or self-care (01) ==
LOC: HO.HOS 12:57
PROVIDERS: PCP Nurse Practitioner Family
DX: M67.431 Ganglion, right wrist (principal)
CPT/HCPCS: 99214

== ENCOUNTER → 2025-04-29 12:56 | Outpatient (BNVA) | payer OTHER, SELFPAY | PROVIDERS: PCP Nurse Practitioner Family | DX: M67.431 Ganglion, right wrist (principal) | CPT/HCPCS: 99212 ==

== ENCOUNTER 2025-05-01 12:53 | Outpatient (AMB) | payer OTHER, SELFPAY ==
--- OUTSIDE RECORDS SUMMARY | 2025-05-01 12:56 | XMS_ITS | Clinical Summary ---
Author Organization [facility] Address [address] [place] [address] Care Team Providers Care Meal Attendant Name Role Phone Unavailable Primary Care Provider [...]
--- OUTSIDE RECORDS SUMMARY | 2025-05-01 12:56 | XMS_ITS | Clinical Summary ---
Author Organization [facility] Address [address] [place] [phone] Phone Care Team Providers Care Director Of Food And Nutrition Services Name Role Phone Sherita Santiago SEASONER HAND Primary Care Provider Chaya vailable Allergies No [...] topic Medical Devices Not on file Insurance [facility] A[facility] [id number] [place] [address] ACO [facility] Care Teams Director Of Food And Nutrition Services Relationship Specialty Start Date End Date Sherita Santiago NP PCP - General 10/16/24 Additional Source Comments The information contained in this document represents components of the legal health record. It is not the complete legal health record.[facility]
--- NOTE | 2025-05-01 13:00 | MHC.PC.OV ---
Vital Signs 05/01/25 13:07 05/01/25 13:43 Height 5 ft 7 in Weight 247 lb 8 oz BMI 38.8 BP 220/118 H 180/100 H Blood Pressure Location Lt brachial Lt brachial Position Sitting Sitting Respiration 16 Pulse 76 84 Pulse Source Pulse Oximeter Auscultation Temp 98.6 F Temp Source Oral Pulse Oximetry (%) 98 Oxygen Delivery Method Room Air Intake Visit Reasons: High BP Intake Note: patient her for follow up on BP Telecom Coordinator Required: No Allergies codeine (CODEINE) Allergy (Unknown, Verified 05/01/25 13:38) CLAUSTROPHOBIA Medication List - Last Reconciled 05/01/25 by Sherita Santiago CNP No Known Home Meds Tobacco use date assessed: 05/01/25 Dental Screening Dental Screen Date: 05/01/25 Did you have a dental visit in the last 12 months?: No Did you have a dental problem in the last 6 months where you did not have access to dental care?: No Was dental information given to patient?: Patient has dentist HPI HPI Comments History of Present Illness Details 54-year-old male presents for hypertension follow-up. His last office visit for hypertension was 08/21/2024. He was prescribed lisinopril 20 mg daily and advised to follow-up in 4 days. He notes that he has not taking any prescription medications since he ran out a month and a half ago. He states that he drinks 3 beers once monthly. He has been smoking a pack of cigarettes daily and increased to 2 packs daily 2 months ago. He started smoking when he was 15 years old. He denies acute symptoms at this time. Medication history: Lisinopril 20 mg daily - last picked up in 08/2024 per pharmacy Amlodipine 10 mg daily - last picked up in 08/2024 per pharmacy Fenofibrate 160 mg daily Atorvastatin 40 mg daily [facility] Medical History Chest pain Hyperlipidemia Annual physical exam Hyperglycemia Rectal bleed Diaphoresis Sleep apnea Abdominal pain Rectal bleeding High cholesterol HTN (hypertension) Surgical History No significant past surgical history Family History Mother Heart valve disease Cancer Brother Diabetes mellitus Social History Household Members: Spouse Household Members Other:: fiance and kids Housing: Other Housing Other:: long term/apt Do you presently have visiting nurse or other home services: No Alcohol intake: never Patient Tobacco Use Status: Current everyday Tobacco user Cigarettes Per Day: 6 Years Smoked: 30 e-Cigarette/Vaping Use: Never Used Second Hand Smoke Exposure: No service: No Current occupational status: employed 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 1. Little interest or pleasure in doing things: more than half the days 2. Feeling down, depressed, or hopeless: not at all 3. Trouble falling or staying asleep, or sleeping too much: not at all 4. Feeling tired or having little energy: several days 5. Poor appetite or overeating: not at all 6. Feeling bad about yourself - or that you are a failure or have let yourself or your family down: not at all 7. Trouble concentrating on things, such as reading the newspaper or watching television: not at all 8. Moving or speaking so slowly that other people could have noticed. Or the opposite - being so fidgety or restless that you have been moving around a lot more than usual: several days 9. Thoughts that you would be better off or of hurting yourself in some way: not at all Total score: 4 Depression Screening Interpretation: Negative Depression Screening Done: Yes Source: Developed by Drs. Rick Aguilera, Natan Saba and colleagues, with an educational olivia from [employer]. Thrive Questionnaire Date Thrive assessed: 05/01/25 I am a: Patient AMANDA-7 AMB Questionnaire AMANDA-7 Date AMANDA - 7 assessed: 04/29/24 Source: Developed by Drs. Rick Aguilera, Natan Saba and colleagues, with an educational olivia from [employer]. Review of Systems Const Details: Const Denies chills, Denies fatigue, Denies fever(s), Denies headache(s) and Denies weakness ENT Denies dizziness and Denies headache(s) Card Denies chest pain, Denies lightheadedness, Denies dyspnea and Denies other (Palpitations) Resp Denies cough, Denies dyspnea, Denies wheezing and Denies other ( shortness of breath) GI Denies abdominal pain, Denies melena, Denies hematochezia, Denies change in bowel habits, Denies dyspepsia and Denies nausea Denies hematuria and Denies dysuria Musc Denies abnormal gait, Denies myalgias, Denies arthralgias, Denies numbness and Denies tingling Skin/Breast Denies rash, Denies unusual bruising and Denies wounds Neuro Denies abnormal gait, Denies dizziness, Denies headache(s), Denies memory loss, Denies numbness, Denies Sensory deficit (Neuro), Denies tingling and Denies weakness Psych Denies anxiety, Denies depression, Denies memory loss Endo Denies cold intolerance, Denies fatigue, Denies heat intolerance, Denies polydipsia and Denies polyuria Aller/Immun Denies wheezing Physical exam (Primary Care) Vital Signs: Last Vital Signs Temp 98.6 F 05/01/25 13:07 Pulse 84 05/01/25 13:43 Resp 16 05/01/25 13:07 BP 180/100 H 05/01/25 13:43 Pulse Ox 98 05/01/25 13:07 Oxygen Delivery Method Room Air 05/01/25 13:07 BMI result Body Mass Index 38.8 Tobacco/Smoking Status: Tobacco use Status Tobacco use date assessed 05/01/25 05/01/25 13:12 Patient Tobacco Use Status Current everyday Tobacco 05/01/25 13:02 e-Cigarette/Vaping Use Never Used 05/01/25 13:02 PHQ-9: PHQ-9 Score PHQ-9: Total score 4 05/01/25 14:38 Depression Screening Interpretation: Negative Thrive Assessment: Date of Thrive Assessment Date Thrive assessed 05/01/25 05/01/25 13:02 Const Other: General: no acute distress and well developed Nutritional Appearance: well nourished Orientation/consciousness: patient oriented x3 HENMT Head: Yes normocephalic and Yes atraumatic Eyes General: appearance normal, both eyes and all related structures Pupils: Equal, round and reactive pupils present EOM: EOMs intact bilaterally Resp Effort & Inspection: normal respiratory effort Auscultation: clear to auscultation bilaterally Cardio Rate: regular rate Rhythm: regular rhythm Heart sounds: S1 normal heart sound present, S2 normal heart sound present, no gallops, no murmurs and no rubs GI Palpation (GI): No Abdominal aortic bruit present, Soft to palpation, nontender, No hepatosplenomegaly present and No Rebound tenderness present Auscultation: normal bowel sounds General: Yes no CVA tenderness Back/Spine/Pelvis Back: no CVA tenderness Cervical Spine: cervical ROM normal and No Cervical spine tenderness Thoracic/Lumbar Spine: thoraco-lumbar ROM normal, No pain with thoraco-lumbar ROM, No thoracic spinal tenderness and No lumbar spinal tenderness Extrem General: Yes normal to inspection, No edema and No calf tenderness Skin General: warm and dry. Normal skin color. Normal skin turgor Neuro General: patient oriented x3, gait normal and no focal neuro deficit Cranial nerves: Yes Equal, round and reactive pupils present Cognition (Neuro): normal cognition Gait exam (Neuro): Normal gait present Sensory Exam: No Sensory deficit (Neuro) Psych Appearance: grossly normal Affect: normal affect Attitude: cooperative Thought process: Normal thought process present Office Procedures Office Procedure Office Procedure Documentation Office Procedure Documentation: Verbal order from PCP for 0.2 mg clonidine PO for BP 180/100. Administered medication at 1:55 PM. BP check at 2:10 174/106. PCP asked for recheck at 2:20 at that time BP 170/108, reported to PCP. Coding Level of Care Code Est Pt Level 4 (26625) Diagnoses HTN (hypertension) I10 Hyperlipidemia, unspecified hyperlipidemia type E78.5 Hyperlipidemia type: unspecified Nicotine dependence F17.200 Assessment & Plan Assessment & Plan (1) HTN (hypertension): Code(s): I10 - Essential (primary) hypertension Category: Medical Plan: Resting blood pressure is 180/100, above goal of less than 140/90. Heart rate is 84. Blood pressure improved to 170/108 20-30 minutes following administration of clonidine 0.2 mg. Lisinopril 20 mg daily ordered; advised to take as prescribed. Instructed on the risks, benefits, and potential adverse reactions of the medication. Follow-up in 3 days for nurse visit for blood pressure check and with PCP in 1 week. Return sooner with symptoms or concerns. Verbalized understanding and agreed with the plan. (2) Hyperlipidemia: Code(s): E78.5 - Hyperlipidemia, unspecified Category: Medical Qualifiers: Hyperlipidemia type: unspecified Qualified Code(s): E78.5 - Hyperlipidemia, unspecified Plan: He has not had lipid panel blood work done since July 2022; triglycerides significantly elevated and LDL was slightly elevated. Not sure how long he has not been taking his atorvastatin. Atorvastatin 40 mg daily ordered; advised to take as prescribed. Instructed on the risks, benefits, and potential adverse reactions of the medication. Advised to limit foods high in saturated fat and avoid foods high in trans fat. Routine exercise encouraged. Fast for 10-12 hours, may drink water, and perform lipid panel blood work before next visit. Follow-up in 1 week. Verbalized understanding and agreed with plan. (3) Nicotine dependence: Code(s): F17.200 - Nicotine dependence, unspecified, uncomplicated Category: Medical Plan: He has been smoking a pack of cigarettes daily and increased to 2 packs daily 2 months ago. He started smoking when he was 15 years old. Instructed on the health risks and complications of cigarette smoking and cessation encouraged. Declines medication treatment for smoking cessation at this time and notes he will cut down or quit without treatment. Follow-up as needed. Verbalized understanding and agreed with the plan. Orders: Orders Vitamin D 25-OH Total Today I10 - Essential (primary) hypertension Lipid Panel Today I10 - Essential (primary) hypertension TSH reflex Free T4 Today I10 - Essential (primary) hypertension Microalbumin, Random (w Creat) Today I10 - Essential (primary) hypertension UA CC w/rflx Micro + Cult Today I10 - Essential (primary) hypertension Medications: Changed From lisinopril 20 mg PO DAILY 90 days 90 tabs 0RF To lisinopril 20 mg PO DAILY 30 tabs 3RF 30 days From atorvastatin (Lipitor) Schedule next PCP appt for more refills 40 mg PO DAILY 90 tabs 1RF To atorvastatin (Lipitor) 40 mg PO DAILY 90 tabs 1RF Patient Instructions: Total time for this visit was 60 minutes. This include 40 minutes with patient, monitoring and addressing his hypertension, and 20 minutes reviewing, coordinating plan of care, and documenting.
[2025-05-01 13:07] VITALS: BP 220/118; PULSE 76; RESP 16; TEMP 37; O2SAT 98; BMI 38.8
[2025-05-01 13:43] VITALS: BP 180/100; PULSE 84
== END 2025-05-01 14:32 | disposition home or self-care (01) ==
LOC: HO.HMCFM 12:54
PROVIDERS: PCP Nurse Practitioner Family; Visit Provider Nurse Practitioner Family
DX: I10 Essential (primary) hypertension (principal); E78.5 Hyperlipidemia, unspecified; F17.200 Nicotine dependence, unspecified, uncomplicated

== ENCOUNTER → 2025-05-01 12:53 | Outpatient (BNVA) | payer OTHER, SELFPAY | PROVIDERS: PCP Nurse Practitioner Family; Visit Provider Nurse Practitioner Family | DX: I10 Essential (primary) hypertension (principal); E78.5 Hyperlipidemia, unspecified; F17.200 Nicotine dependence, unspecified, uncomplicated; Z79.899 Other long term (current) drug therapy | CPT/HCPCS: 99212 ==

== ENCOUNTER 2025-05-11 14:01 | Outpatient (AMB) | payer OTHER, SELFPAY ==
--- OUTSIDE RECORDS SUMMARY | 2025-05-11 14:10 | XMS_ITS | Clinical Summary ---
Author Organization [facility] [place] [facility] Address [address] [place] [address] Care Team Providers Care Black Jack Dealer Name Role Phone Unavailable Primary Care Provider [...]
--- OUTSIDE RECORDS SUMMARY | 2025-05-11 14:10 | XMS_ITS | Clinical Summary ---
Author Organization [facility] Address [address] [place] [phone] Phone Care Team Providers Care Supreme Court Justice Name Role Phone Sherita Santiago MAIL MANAGER Primary Care Provider Chaya vailable Allergies No [...] topic Medical Devices Not on file Insurance [facility] ACO [facility] ACO [id number] [place] [address] ACO [facility] ACO [facility] ACO [facility] ACO Care Teams Supreme [address] Justice Relationship Specialty Start Date End Date Sherita Santiago NP PCP - General 10/16/24 Additional Source Comments The information contained in this document represents components of the legal health record. It is not the complete legal health record.[facility]
--- NOTE | 2025-05-11 14:34 | A.OFFPC_ITS ---
Vital Signs 05/11/25 14:38 05/11/25 14:48 05/11/25 14:59 Height 5 ft 7 in Weight 246 lb BMI 38.5 BP 190/100 H 200/100 H 180/110 H Blood Pressure Location Lt brachial Rt brachial Lt brachial Position Sitting Sitting Sitting Respiration 15 Pulse 84 Pulse Source Pulse Oximeter Temp 97.2 F Temp Source Temporal Artery Scan Pulse Oximetry (%) 96 Oxygen Delivery Method Room Air Intake Visit Reasons: 1 wk PCP Intake Note: River presents in the office today for a one week follow up for his hypertension. Allergies codeine (CODEINE) Allergy (Unknown, Verified 05/11/25 14:55) CLAUSTROPHOBIA Medication List - Last Reconciled 05/11/25 by Sherita Santiago CNP atorvastatin (Lipitor) 40 mg PO DAILY lisinopril 20 mg PO DAILY 30 days No Known Home Meds Tobacco use date assessed: 05/11/25 Dental Screening Dental Screen Date: 05/11/25 Did you have a dental visit in the last 12 months?: No Did you have a dental problem in the last 6 months where you did not have access to dental care?: No Was dental information given to patient?: Patient declined HPI HPI Comments History of Present Illness Details 54-year-old male presents for hypertensi on follow-up. He admits to taking his medications as prescribed without adverse reactions. He notes he has been making healthy lifestyle changes. He offers no complaints and denies acute symptoms at this time. FORMERLY [facility] Medical History Chest pain Hyperlipidemia Annual physical exam Hyperglycemia Rectal bleed Diaphoresis Sleep apnea Abdominal pain Rectal bleeding High cholesterol HTN (hypertension) Surgical History No significant past surgical history Family History Mother Heart valve disease Cancer Brother Diabetes mellitus Social History (Updated 05/11/25 @ 14:38 by Lidya Morales MA) Household Members: Spouse Household Members Other:: fiance and kids Housing: Other Housing Other:: retirement/apt Do you presently have visiting nurse or other home services: No Alcohol intake: never Patient Tobacco Use Status: Current everyday Tobacco user Cigarettes Per Day: 6 Years Smoked: 30 Packs per year/per ci.00 e-Cigarette/Vaping Use: Never Used Second Hand Smoke Exposure: No Use of substances other than those prescribed or required for medical reasons: No service: No Current occupational status: employed 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 Rick Aguilera, Gudelia Landaverde, Natan Shelton and colleagues, with an educational olivia from [email or web address]. Review of Systems Const Details: Const Denies chills, Denies fatigue, Denies fever(s), Denies headache(s) and Denies weakness ENT Denies dizziness and Denies headache(s) Card Denies chest pain, Denies lightheadedness, Denies dyspnea and Denies other (Palpitations) Resp Denies cough, Denies dyspnea, Denies wheezing and Denies other ( shortness of breath) GI Denies abdominal pain, Denies melena, Denies hematochezia, Denies change in bowel habits, Denies dyspepsia and Denies nausea Denies hematuria and Denies dysuria Musc Denies abnormal gait, Denies myalgias, Denies arthralgias, Denies numbness and Denies tingling Skin/Breast Denies rash, Denies unusual bruising and Denies wounds Neuro Denies abnormal gait, Denies dizziness, Denies headache(s), Denies memory loss, Denies numbness, Denies Sensory deficit (Neuro), Denies tingling and Denies weakness Psych Denies anxiety, Denies depression, Denies memory loss Endo Denies cold intolerance, Denies fatigue, Denies heat intolerance, Denies polydipsia and Denies polyuria Aller/Immun Denies wheezing Physical exam (Primary Care) Vital Signs: Last Vital Signs Temp 97.2 F 05/11/25 14:38 Pulse 84 05/11/25 14:38 Resp 15 05/11/25 14:38 BP 200/100 H 05/11/25 14:48 Pulse Ox 96 05/11/25 14:38 Oxygen Delivery Method Room Air 05/11/25 14:38 BMI result Body Mass Index 38.5 Tobacco/Smoking Status: Tobacco use Status Tobacco use date assessed 05/11/25 05/11/25 14:41 Patient Tobacco Use Status Current everyday Tobacco 05/11/25 14:38 e-Cigarette/Vaping Use Never Used 05/11/25 14:38 Thrive Assessment: Date of Thrive Assessment Date Thrive assessed 05/01/25 05/11/25 14:34 Const Other: General: no acute distress and well developed Nutritional Appearance: well nourished Orientation/consciousness: patient oriented x3 HENMT Head: Yes normocephalic and Yes atraumatic Eyes General: appearance normal, both eyes and all related structures Pupils: Equal, round and reactive pupils present EOM: EOMs intact bilaterally Resp Effort & Inspection: normal respiratory effort Auscultation: clear to auscultation bilaterally Cardio Rate: regular rate Rhythm: regular rhythm Heart sounds: S1 normal heart sound present, S2 normal heart sound present, no gallops, no murmurs and no rubs GI Palpation (GI): No Abdominal aortic bruit present, Soft to palpation, nontender, No hepatosplenomegaly present and No Rebound tenderness present Auscultation: normal bowel sounds General: Yes no CVA tenderness Back/Spine/Pelvis Back: no CVA tenderness Cervical Spine: cervical ROM normal and No Cervical spine tenderness Thoracic/Lumbar Spine: thoraco-lumbar ROM normal, No pain with thoraco-lumbar ROM, No thoracic spinal tenderness and No lumbar spinal tenderness Extrem General: Yes normal to inspection, No edema and No calf tenderness Skin General: warm and dry. Normal skin color. Normal skin turgor Neuro General: patient oriented x3, gait normal and no focal neuro deficit Cranial nerves: Yes Equal, round and reactive pupils present Cognition (Neuro): normal cognition Gait exam (Neuro): Normal gait present Sensory Exam: No Sensory deficit (Neuro) Psych Appearance: grossly normal Affect: normal affect Attitude: cooperative Thought process: Normal thought process present Coding Level of Care Code Est Pt Level 3 (06428) Diagnoses HTN (hypertension) I10 Assessment & Plan Assessment & Plan (1) HTN (hypertension): Code(s): I10 - Essential (primary) hypertension Category: Medical Plan: Resting blood pressure is 180/110, above goal of less than 140/90. Asymptomatic. Lisinopril increased to 40 mg daily; advised to take as prescribed. Will gradually lower patient's blood pressure since his blood pressure has been significantly elevated for a while. Low-sodium diet and routine exercise encouraged. Encouraged to perform fasting lab work before next visit. Follow-up for nurse visit for blood pressure check in 3 days and with PCP in 1 week. Return sooner with symptoms or concerns. Verbalized understanding and agreed with the plan. Medications: New lisinopril 40 mg PO DAILY 30 tabs 3RF 30 days Discontinued lisinopril Discontinued Reason: Doctor's Order 20 mg PO DAILY 30 days 30 tabs 3RF
[2025-05-11 14:38] VITALS: BP 190/100; PULSE 84; RESP 15; TEMP 36.2; O2SAT 96; BMI 38.5
[2025-05-11 14:48] VITALS: BP 200/100
[2025-05-11 14:59] VITALS: BP 180/110
== END 2025-05-11 15:56 | disposition home or self-care (01) ==
LOC: HO.HMCFM 14:02
PROVIDERS: PCP Nurse Practitioner Family; Visit Provider Nurse Practitioner Family
DX: I10 Essential (primary) hypertension (principal)

== ENCOUNTER → 2025-05-11 14:01 | Outpatient (BNVA) | payer OTHER, SELFPAY | PROVIDERS: PCP Nurse Practitioner Family; Visit Provider Nurse Practitioner Family | DX: I10 Essential (primary) hypertension (principal); Z79.899 Other long term (current) drug therapy | CPT/HCPCS: 99212 ==

== ENCOUNTER 2025-09-20 15:47 | Emergency (ER) | payer OTHER, SELFPAY ==
[2025-09-20] VITALS (7 sets, daily range): BP systolic 118–227; BP diastolic 89–118; PULSE 69–103; RESP 15–20; TEMP 36.2–37.1; O2SAT 97–98; BMI 44.5
--- NOTE | ~2025-09-20 | US_ITS ---
CLINICAL HISTORY: calf pain swelling Left lower extremity venous duplex ultrasound. Comparison: None Technique: Real time sonographic imaging, including color-flow imaging and spectral analysis, was performed by the inter fold roll cutter. Multiple customer loyalty representative static images were saved for review. Findings: The deep venous system is fully compressible from common femoral through the proximal leg veins. There is spontaneous and phasic flow, and augmentation. Color Doppler and spectral tracings are unremarkable. Impression: 1. Left lower extremity venous duplex ultrasound negative for DVT This document has been electronically signed by: Iban Macario MD on 09/20/2025 18:01:23
--- NOTE | ~2025-09-20 | CT_ITS ---
CLINICAL HISTORY: cp CT angiography chest with contrast. 3D Postprocessing. Comparison: CR - XR CHEST 2V - 09/20/25 16:11 EST CR - XR CHEST 2V - 03/24/25 22:29 EDT Findings: The heart size is normal. RV/LV ratio is normal. The thoracic aorta is normal caliber. No pulmonary artery filling defects. 1.3 cm right upper paratracheal lymph node, nonspecific. Visualized thyroid gland is within normal limits. Few small blebs in the apex. No consolidation, pleural effusion, or pneumothorax. The visualized upper abdomen is unremarkable. Diffuse idiopathic skeletal hyperostosis. No acute fracture. IMPRESSION: 1. No acute intrathoracic findings. No pulmonary embolus. This document has been electronically signed by: Darryl Manzo MD on 09/20/2025 20:46:49
--- NOTE | ~2025-09-20 | XR_ITS ---
CLINICAL HISTORY: short of breath 2 view chest x-ray. Comparison: 03/24/2025 Findings: No consolidation or effusion. Cardiac and mediastinal contours are stable. Bones unremarkable. Impression: 1. No acute pulmonary disease. This document has been electronically signed by: Iban Macario MD on 09/20/2025 16:24:45
--- NOTE | ~2025-09-20 | CT_ITS ---
CLINICAL HISTORY: abd pain CT abdomen and pelvis with contrast Comparison: None provided Findings: The lung bases are clear. 2.9 x 1.6 cm indeterminate left adrenal nodule. Liver, gallbladder, pancreas, spleen, and right adrenal gland are within normal limits. No hydronephrosis. Symmetric contrast enhancement of the kidneys. Subcentimeter right renal cyst. No bowel obstruction, pneumoperitoneum, or pneumatosis. Aortic atherosclerosis. No aneurysm. Pelvic contents unremarkable. Normal appendix. No acute fracture. IMPRESSION: 1. No acute findings. 2. 2.9 x 1.6 cm indeterminate left adrenal nodule. Recommend nonemergent adrenal CT protocol further evaluation. This document has been electronically signed by: Darryl Manzo MD on 09/20/2025 20:36:58
--- NOTE | 2025-09-20 16:01 | ECG_ITS ---
Test Reason : fall Blood Pressure : */* mmHG Vent. Rate : 93 BPM Atrial Rate : 93 BPM P-R Int : 172 ms QRS Dur : 98 ms QT Int : 360 ms P-R-T Axes : 47 63 147 degrees QTcB Int : 447 ms Normal sinus rhythm Minimal voltage criteria for LVH, may be normal variant ( [place] product ) ST & T wave abnormality, consider lateral ischemia Abnormal ECG When compared with ECG of 24-Mar-2025 21:56, No significant change was found Referred By: Nathaly Martinez Electronically Signed By: Jorge Chery
--- NOTE | 2025-09-20 16:03 | ED_ITS ---
HPI - General Adult General Chief complaint: Fall Stated complaint: slip/fall last sunday, pain since Time Seen by Provider: 09/20/25 18:30 History of Present Illness HPI narrative: patient is a 55-year-old history of hypertension hypercholesterolemia larger in size long-time smoker presents today with having chest pain. The chest pain is on the left side. Patient claims that it was there when he woke up at 06:00. Continue till 15:00. Also complaining of pain in his abdomen that is been ongoing for the last 9 days since he fell about 9 days ago. Pain going down to the leg. Some swelling to the leg. Patient is from home. Able to ambulate. No fever no chills no change in bowel movement. No coughing or congestion or upper respiratory symptoms. No diaphoresis. Patient is from home. No stress test done in the past. Related Data Previous Rx's ?Medication ?Instructions ?Recorded atorvastatin 40 mg tablet (Lipitor) 40 mg PO DAILY #90 tabs 05/01/25 lisinopril 40 mg tablet 40 mg PO DAILY 30 days #30 t abs 05/11/25 Allergies Allergy/AdvReac Type Severity Reaction Status Date / Time codeine (CODEINE) Allergy Unknown CLAUSTROPHO Verified 09/20/25 15:59 CAMILO Review of Systems 2 Review of Systems: Positive chest pain Yes all other systems are reviewed and are negative PMFSH Past Medical History Attestation statement: The following information was validated with the patient. Medical History Chest pain Hyperlipidemia Annual physical exam Hyperglycemia Rectal bleed Diaphoresis Sleep apnea Abdominal pain Rectal bleeding High cholesterol HTN (hypertension) Surgical History No significant past surgical history Family History Family History Mother Heart valve disease Cancer Brother Diabetes mellitus Social History Social History Household Members: Spouse Household Members Other:: fiance and kids Housing: Other Housing Other:: longterm/apt Do you presently have visiting nurse or other home services: No Alcohol intake: never Patient Tobacco Use Status: Current everyday Tobacco user Cigarettes Per Day: 6 Years Smoked: 30 Smoked in Last 30 Days: Yes e-Cigarette/Vaping Use: Never Used Second Hand Smoke Exposure: No Use of substances other than those prescribed or required for medical reasons: No Advance Directives: No Advance Directives Information Provided: No service: No Current occupational status: employed 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 Oriented X3. No acute distress. Eyes: Pupils equal, round and reactive to light. ENT: Pharynx normal. Neck: Normal inspection. Neck supple. No lymph nodes noted. No crepitus CVS: Normal heart rate and rhythm. Pulses normal. Normal S1 and S2 Respiratory: No respiratory distress. Breath sounds normal. No Wheezing. No rales Abdomen: Soft and nontender. No rigidity. No distention. good BS x4 Skin: Skin warm and dry. Normal skin color. Normal skin turgor. Extremities: No lower extremity edema. Neurovascular intact to all extremities. No Lacerations. No Rash Neuro: Oriented X 3. No motor deficit. No sensory deficit. Moving all extermities. No slurred speech Vital Signs: Vital Signs - 24 hr 09/20/25 15:59 09/20/25 16:57 09/20/25 16:57 Temperature 97.1 F 98.8 F Pulse Rate 103 H 88 Respiratory Rate 20 20 Blood Pressure 227/116 H 119/114 H 199/114 H Pulse Oximetry 97 Oxygen Delivery Method Room Air 09/20/25 18:36 09/20/25 20:12 09/20/25 22:00 Temperature 97.9 F 97.8 F Pulse Rate 76 69 Respiratory Rate 15 16 Blood Pressure 176/89 H 118/117 H 194/118 H Pulse Oximetry 97 Oxygen Delivery Method Room Air Room Air 09/20/25 22:00 09/20/25 22:28 Temperature Pulse Rate Respiratory Rate Blood Pressure 187/110 H 176/97 H Pulse Oximetry Oxygen Delivery Method BMI result Body Mass Index 44.5 Course Course Course Narrative: This is a Rapid Medical Examination (RME) performed by Antonio Martinez PA-C in triage. Full HPI, ROS, assessment and treatment plan per primary provider in the Main ED. Hx: 55 yo M here w/ LLE pain/swelling, calf lumps x1 weeks, reports symptoms began following a slip and fall 1 week ago. woke up having chest pain and sob. no GREEN[place]G. PE/vitals: hypertensive in triage - reports compliance w/ HTN meds. has required admission for BP. Plan: labs, cxr, ekg, US Medications Administered Discontinued Medications Generic Name Dose Route Start Last Admin Trade Name Nikolasq PRN Reason Stop Dose Admin Iohexol 100 ml 09/20/25 20:06 09/20/25 20:07 Iohexol 350 Mg/Ml 100 Ml Infus..Btl IV 09/20/25 20:07 100 ml ONCE ONE Administration Lisinopril 40 mg 09/20/25 21:50 09/20/25 22:00 Lisinopril 40 Mg Tablet PO 09/20/25 21:51 40 mg ONCE ONE Administration Protocol Medical Decision Making Medical Decision Making [facility] Narrative: Patient's troponin x3 sets was the same. In the 20s range. Patient is had nonspecific pain to the leg DVT study was negative. Pt Has nonspecific pain to the left abdomen. The CT scan shows No acute findings. 2. 2.9 x 1.6 cm indeterminate left adrenal nodule. Recommend nonemergent adrenal CT protocol further evaluation. CT scan of the chest showed no evidence of PE. No acute findings. 2. 2.9 x 1.6 cm indeterminate left adrenal nodule. Recommend nonemergent adrenal CT protocol further evaluation. My interpretation patient's patient's EKG showed a sinus rhythm heart rate is 90 MS QRS QTC within normal limits there is nonspecific finding in the anterior leads which is old. Differential Diagnosis Differential Diagnoses: The differential diagnosis associated with the presentation includes Pneumonia, pneumothorax, ACS, abdominal pathology, fracture, DVT Admission/Observation Consideration of admission/observation: Escalation of care including admission/observation considered Lab Data [facility] Lab Attestation statement: I reviewed the patient's lab results. 09/20/25 16:26 09/20/25 16:26 Labs: Lab Results 09/20/25 09/20/25 09/20/25 Range/Units 16:26 19:19 21:52 WBC 7.4 (4.8-10.8) X10*3/uL RBC 4.81 (4.60-5.80) X10*6/uL Hgb 14.8 (14.0-18.0) g/dl Hct 43.0 (42.0-52.0) % MCV 89.4 (80.0-98.0) fL MCH 30.8 (27.0-33.0) pg MCHC 34.4 (31.0-36.0) g/dl RDW 12.4 (11.0-16.0) % Plt Count 208 (160-400) X10*3/uL MPV 9.3 L (9.4-12.4) fL Immature Gran % (Auto) 0.5 H (0.0-0.4) % Neut % (Auto) 70.9 (45-73) % Lymph % (Auto) 21.8 (20-40) % [place] % (Auto) 5.8 (2-11) % Eos % (Auto) 0.7 (0-4) % Baso % (Auto) 0.3 (0-2) % Lymph # (Auto) 1.6 (1.2-4.9) X10*3/uL [place] # (Auto) 0.4 (0.1-1.2) X10*3/uL Eos # (Auto) 0.1 (0.0-0.4) X10*3/uL Baso # (Auto) 0.0 (0.0-0.2) X10*3/uL Abs Immat Gran (auto) 0.04 H (0.00-0.03) X10*3/uL Absolute Neuts (auto) 5.3 (2.0-8.3) x10*3/uL Absolute Nucleated RBC 0.000 (0.0-0.012) X10*3/uL Nucleated RBC % (auto) 0.0 (0.0-0.2) /100WBC Sodium 145 (135-145) mmol/L Potassium 3.9 (3.3-5.1) mmol/L Chloride 108 (96-108) mmol/L Carbon Dioxide 27 (22-29) mmol/L Anion Gap 14 (12-20) BUN 19 H (9-16) mg/dL Creatinine 1.08 (0.5-1.4) mg/dL Estim Creat Clear Calc 90.2 Estimated GFR > 60 Random Glucose 106 (60-115) mg/dL Calcium 9.1 (8.4-10.2) mg/dL Magnesium 1.8 (1.6-2.6) mg/dL Total Bilirubin 0.2 (0.0-1.0) mg/dL AST 22 (5-37) U/L ALT 24 (0-40) U/L Alkaline Phosphatase 76 (39-117) U/L Troponin I High Sens 22.6 29.0 28.2 (<3.5-35.0) ng/L Total Protein 7.0 (6.5-8.0) g/dL Albumin 4.3 (3.5-5.0) g/dL Independent Interpretation I performed an independent interpretation of an: EKG and CT Scan ( CT abdomen grossly negative) Radiology Impression Discussion of test interpretation with radiology: I have reviewed the radiologist's reading. External Record Review External record reviewed: Inpatient record Chronic Conditions Patient?s care impacted by: Hypertension high cholesterol and smoking Social Determinants Patient?s care significantly limited by Social Determinants of Health including: Problems related to primary support group Discharge Plan Discharge Clinical Impression: Abdominal pain in male Patient Disposition: Home, Self-Care Instructions: Abdominal Pain (ED), Chest Pain (DC) Additional Instructions: CT of the abdomen found adrenal lymph nodes. Please closely follow-up. 1. No acute findings. 2. 2.9 x 1.6 cm indeterminate left adrenal nodule. Recommend nonemergent adrenal CT protocol further evaluation. Prescriptions: No Action atorvastatin [Lipitor] 40 mg tablet 40 mg PO DAILY Qty: 90 1RF lisinopril 40 mg tablet 40 mg PO DAILY 30 Days Qty: 30 3RF Referrals: Sherita Santiago CNP [Primary Care Provider, Internal Medicine] - 09/23/25 Jorge Chery MD [Physician, Cardiology] - 09/23/25 Print Language: Belarusian
[2025-09-20 16:31] LABS: MANUAL DIFF FLAG NO
[2025-09-20 16:34] LABS: Hematocrit 43.0 % (42.0-52.0); Hemoglobin 14.8 g/dl (14.0-18.0); Imm Gran Abs Auto 0.04 X10*3/uL (0.00-0.03); Imm Gran Pct Auto 0.5 % (0.0-0.4); Lymphocytes Absolute Auto 1.6 X10*3/uL (1.2-4.9); Mean Corpuscular HGB Conc 34.4 g/dl (31.0-36.0); Mean Corpuscular Hemoglobin 30.8 pg (27.0-33.0); Mean Corpuscular Volume 89.4 fL (80.0-98.0); NRBC Abs Auto 0.000 X10*3/uL (0.0-0.012); NRBC Pct Auto 0.0 /100WBC (0.0-0.2); Platelet Count 208 X10*3/uL (160-400); Red Blood Count 4.81 X10*6/uL (4.60-5.80); White Blood Count 7.4 X10*3/uL (4.8-10.8)
[2025-09-20 16:50] LABS: Alanine Aminotransferase 24 U/L (0-40); Albumin Level 4.3 g/dL (3.5-5.0); Alkaline Phosphatase 76 U/L (39-117); Anion Gap 14 (12-20); Aspartate Amino Transferase 22 U/L (5-37); Blood Urea Nitrogen 19 mg/dL (9-16); Calcium 9.1 mg/dL (8.4-10.2); Carbon Dioxide 27 mmol/L (22-29); Chloride 108 mmol/L (96-108); Creatinine Clr Calc Pharmacy 90.2; Estimated Glomerular Filt Rate > 60; Magnesium 1.8 mg/dL (1.6-2.6); Potassium 3.9 mmol/L (3.3-5.1); Sodium 145 mmol/L (135-145); Total Protein 7.0 g/dL (6.5-8.0)
[2025-09-20 16:57] LABS: Troponin-I High Sensitivity 22.6 ng/L (<3.5-35.0)
--- OUTSIDE RECORDS SUMMARY | 2025-09-20 17:37 | XMS_ITS | Clinical Summary ---
Author Organization [employer] [facility] Address [address] [place] [address] Care Team Providers Care Manufacturing Test Engineer Name Role Phone Unavailable Primary Care Provider [...] on file Sexual Orientation Not on file Plan of Treatment Health Maintenance Due Date Last Done Comments DTaP,Tdap,and Td Vaccines (1 - Tdap) 1989 Hepatitis B Vaccines (1 of 3 - 19+ 3-dose series) 1989 Pneumococcal Vaccine: 50+ Ye ars (1 of 1 - PCV) 2020 Zoster Vaccines (1 of 2) 2020 Depression Screening 10/08/2024 COVID-19 Vaccine (2024-2 6 season) 2025 Influenza Vaccine (#1) 2025 RSV Immunization Adult Patie nts (1 - 1-dose 75+ series) 2045 HIB Vaccines Aged Out No longer eligi [...]
--- OUTSIDE RECORDS SUMMARY | 2025-09-20 17:37 | XMS_ITS | Clinical Summary ---
Author Organization [facility] Address [address] [place] [id number] Phone Care Team Providers Care Consumer Banker Name Role Phone Sherita Santiago STACKER DRIVER Primary Care Provider [phone] Allergies No known active allergies Medications No [...] 2020 ZOSTER VACCINES (1 of 2) 2020 INFLUENZA VACCINE (#1) 2025 COVID-19 VACCINE (1 - 2024-2 6 season) 2025 RSV VACCINE (1 - 1-dose 75+ series) 2045 HEPATITIS A VACCINES Aged Out No long [...] topic Medical Devices Not on file Insurance [id number] [place] [address] ACO [facility] ACO [id number] [place] [address] [id number] [place] [address] [employer] [facility] ACO Care Teams Consumer Banker Relationship Specialty Start Date End Date Sherita Santiago NP [address] [place] [address] PCP - General 10/16/24 Additional Source Comments The information contained in this document represents components of the legal health record. It is not the complete legal health record.[facility]
[2025-09-20 19:43] LABS: Troponin-I High Sensitivity 29.0 ng/L (<3.5-35.0)
[2025-09-20] MEDS: iohexoL 350 MG/ML 100 ML INFUS..BTL IV (20:07)
[2025-09-20 22:17] LABS: Troponin-I High Sensitivity 28.2 ng/L (<3.5-35.0)
== END 2025-09-20 22:50 | disposition home or self-care (01) ==
PROVIDERS: Physician Assistant Medical; Emergency Provider Emergency Medicine Emergency Medical Services; PCP Nurse Practitioner Family
DX: R10.9 Unspecified abdominal pain (principal); R07.9 Chest pain, unspecified; M79.662 Pain in left lower leg; M79.89 Other specified soft tissue disorders; R93.5 Abnormal findings on diagnostic imaging of other abdominal regions, including retroperitoneum; I10 Essential (primary) hypertension; E78.00 Pure hypercholesterolemia, unspecified; F17.210 Nicotine dependence, cigarettes, uncomplicated; Z79.02 Long term (current) use of antithrombotics/antiplatelets; Z79.899 Other long term (current) drug therapy
CPT/HCPCS: 36415; 71046; 71275; 74177; 80053; 83735; 84484; 85025; 93005; 93971; 99285; Q9967

== ENCOUNTER → 2025-09-20 16:01 | Outpatient (BNV) | payer OTHER, SELFPAY | PROVIDERS: Emergency Provider Emergency Medicine Emergency Medical Services; PCP Nurse Practitioner Family; Visit Provider Internal Medicine Cardiovascular Disease | DX: R94.31 Abnormal electrocardiogram [ECG] [EKG] (principal); Z13.6 Encounter for screening for cardiovascular disorders | CPT/HCPCS: 93010 ==

== ENCOUNTER → 2025-09-20 16:01 | Outpatient (BNV) | payer OTHER, SELFPAY | PROVIDERS: PCP Nurse Practitioner Family; Visit Provider Radiology Diagnostic Radiology | DX: R10.9 Unspecified abdominal pain (principal); E27.8 Other specified disorders of adrenal gland; R07.9 Chest pain, unspecified; R22.42 Localized swelling, mass and lump, left lower limb; R06.02 Shortness of breath | CPT/HCPCS: 71046; 71275; 74177; 93971 ==